=== PATIENT | female | born 1960 | race Caucasian/White ===

== ENCOUNTER → 2016-07-22 | Outpatient (CLI) | payer OTHER ==
[~2016-07-22] MED LIST: ALBU0.63 IH; CALC600T12 PO; CETI10TA20 PO; DOCU100C37 PO; FLUT1DIS28 IH; HYDR-3812 PO; IBUP-1773 PO; LORA-407 PO; POLY17PO23 PO; RT-ALBUINH IH; TIOT18CA2 IH; VORT5TAB PO
--- NOTE | 2016-07-22 13:05 | Diagnostic Imaging Report ---
EXAMINATION: Bilateral diagnostic mammogram with a Computer Aided Detection (CAD) system. INDICATION: Bilateral lesions seen in the breasts on ultrasound are favored to be fibroadenomas. COMPARISON: 05/29/2015. FINDINGS: The breasts are composed of heterogeneously dense parenchyma which may decrease mammographic sensitivity. Benign-appearing desiccations are seen. Allowing for technique and positional differences, no suspicious change is seen. IMPRESSION: No significant change. An ultrasound evaluation is pending. ACR BI-RADS Category 0: Incomplete. (Needs additional imaging evaluation). Result letter will be mailed to the patient. Note: At least 10% of breast cancer is not imaged by mammography. Dictated by: Dictated on workstation # [id number]
--- NOTE | 2016-07-22 13:10 | Diagnostic Imaging Report ---
EXAMINATION: Bilateral breast ultrasound. INDICATION: Followup bilateral masses. FINDINGS: In the right breast at the 10:30 o'clock position in the periareolar region, there is a 1.7 x 0.9 x 1.1 cm hypoechoic nodule. In the left breast at the 2:30 o'clock position 4 cm from the nipple, there is a 0.6 x 0.4 x 0.5 cm nodule and, at the 10 o'clock zone 1 cm from the nipple, there is a 0.5 cm hypoechoic nodule. These are all essentially stable from 05/30/2015 and remain with circumscribed and lobulated margins, compatible with a benign etiology, likely fibroadenomas. IMPRESSION: Stable bilateral masses for more than 2 years, suggestive of fibroadenomas. Annual screening mammograms are recommended. ACR BI-RADS Category 2: Benign findings. Dictated by: Dictated on workstation # [id number]
== END ==
LOC: RAD 08:25
PROVIDERS: ATTEND Nurse Practitioner Family
DX: N60.01 Solitary cyst of right breast (principal)
CPT/HCPCS: 76642; 77066

== ENCOUNTER → 2018-02-24 | Outpatient (CLI) | payer OTHER ==
[~2018-02-24] MED LIST changes: +ACHD5005 PO; -HYDR-3812 PO; -POLY17PO23 PO; +POLY17PO31 PO
--- NOTE | 2018-02-24 21:38 | Diagnostic Imaging Report ---
INDICATION: Abnormal CT study of the chest from an outside institution demonstrating dense nodule just lateral to the nipple in the right breast. Study is performed for further evaluation. Correlation is made with prior mammogram from 07/22/2016, 05/29/2015 and 05/30/2014. Bilateral 2-D and 3-D diagnostic mammography was performed with a Computer Aided Detection (CAD) system. FINDINGS: Both breasts remain heterogeneously dense, limiting the sensitivity of mammography. Circumscribed mass in the retroareolar slightly outer right breast is stable and most consistent with a benign etiology. This has been present and stable for several years. No new mass is seen. There are benign calcifications in both breasts. No malignant appearing microcalcifications are seen. Axillae are unremarkable. IMPRESSION: Benign-appearing nodule retroareolar right breast, stable. No mammographic features suspicious for malignancy are seen. Patient may return to routine annual screening mammography. ACR BI-RADS Category 2: Benign findings. Result letter will be mailed to the patient. Note: At least 10% of breast cancer is not imaged by mammography. Dictated by: Dictated on workstation # [id number]
== END ==
LOC: RAD 12:04
PROVIDERS: ATTEND Nurse Practitioner Family
DX: N60.01 Solitary cyst of right breast (principal); N63.10 Unspecified lump in the right breast, unspecified quadrant
CPT/HCPCS: 77066

== ENCOUNTER → 2018-03-14 | Emergency (ER) | payer OTHER ==
[~2018-03-14] VITALS: Ht 165.1 cm; Wt 63.5 kg
[~2018-03-14] MED LIST changes: +RT-ALBUTEROL SULF 2.5 MG/3 ML PRE-MIX VIAL INH ONE; +RT-ALBUTEROL SULF 2.5 MG/3 ML PRE-MIX VIAL ONE; +RT-ALBUTEROL/IPRATROPIUM 3 ML (DUONEB) VIAL INH ONE; +RT-ALBUTEROL/IPRATROPIUM 3 ML (DUONEB) VIAL ONE
--- OUTSIDE RECORDS SUMMARY | 2018-03-14 15:13 | XMS REPORT ---
Author Author [facility] Address [address] [place] [address] Care Team Providers Care Utility Tender Carding Name Role Phone YOLA ELLIS Unavailable PROBLEMS Type Condition ICD9-CM Code OMX69-SC Code Onset Dates Condition Status SNOMED Code Problem COPD exacerbation J44.1 Active 338865470 Problem Epigastric abdominal pain R10.13 Active 36008270 Problem Gynecologic exam normal Z01.419 Active 055505672 Problem Cyst of right breast N60.01 Active 067428956 Problem Screening breast examination Z12.39 Active 276038130 Problem Chronic obstructive pulmonary disease, unspecified COPD type J44.9 Active 06490033 Problem Contusion of left knee, initial encounter S80.02XA Active 47512541849500259 Problem Rib pain on right side R07.81 Active 167983959 Problem Anxiety F41.9 Active 51219689 Problem Hyperlipidemia LDL goal <130 E78.5 Active 60889822 Problem Dysthymia F34.1 Active 33655531 Problem Gastric reflux K21.9 Active 810076169 ALLERGIES No Information ENCOUNTERS Encounter Location Date Diagnosis [facility] [address] [id number] [id number] Nov, [facility] [address] [id number] [place] [address] Nov, [facility] [address] [id number], [place] [address] Nov, Rib pain on right side R07.81 and Contusion of left knee, initial encounter S80.02XA [facility] [address] [id number], [place] [address] June, [facility] [address] [id number][place] [address] June, Chronic obstructive pulmonary disease, unspecified COPD type J44.9 and Dysthymia F34.[address] [facility] [address] [id number], [place] 198900056 May, Pleurisy R09.1 and Gastric reflux K21.[address] [facility] [address] [id number], [place] [id number] Apr, [facility] [address] [id number], [place] [id number] Apr, Anxiety F41.9 and COPD exacerbation J44.[address] [facility] [address] [id number], [place] [address] Apr, [facility] [address] [id number][place] [address] Mar, Chronic obstructive pulmonary disease, unspecified COPD type J44.9 ; Anxiety F41.9 and Gastric reflux K21.9 [facility] [address]00565[address] [address] Dec, [facility] [address] [id number], [place] [id number] Oct, COPD exacerbation J44.1 [facility] [address]00565100[place] [address] Aug, [facility] [address] [id number], [place] [address] Aug, [facility] [address] [id number], [place] [id number] Aug, COPD exacerbation J44.1 and Anxiety F41.9 [facility] [address] [id number], [place] [id number] Jul, [facility] [address] [address] Jul, [facility] [address] [id number], [place] [address] Jul, [facility] [address] [id number], [place] [address] June, Gynecologic exam normal Z01.419 ; Cyst of right breast N60.01 ; Hyperlipidemia LDL goal <130 E78.5 and Epigastric abdominal pain R10.13 [facility] [address] [id number], [place] [address] Apr, [facility] [address] [id number], [place] [address] Mar, COPD exacerbation J44.1 and Influenza J11.1 [facility] [address] [id number], [place] [id number] Feb, [facility] [address] [id number], [place] [address] Feb, Chronic obstructive pulmonary disease, unspecified COPD type J44.9 [facility] [address] [id number], [place] [address]12[address]276 Oct, Chronic obstructive pulmonary disease, unspecified COPD type J44.9 [facility] [address] [id number], [place] [address] Sep, Bronchitis J40 [facility] [address] [id number], [place] [id number] Sep, [facility] [address] [id number], [place] [id number] May, Screening breast examination Z12.39 and Cyst of right breast N60.01 [facility] [address] [id number], [place] [address] May, [facility] [address] [id number], [place] [address] May, H/O abnormal mammogram Z87.898 [facility] [address] [facility] [id number] [place] [address] May, [facility] [address] [id number], [place] [id number] Apr, [facility] [address] [id number] [address]- [address] Apr, Generalized anxiety disorder F41.1 [facility] [address]65[address], [place] [address] Mar, [facility] [address]00565100[place], [place] [address] Feb, [facility] [id number] [place] [address] Feb, Hyperlipidemia E78.[address] [id number], [place] [address] Feb, Thyroid lesion E07.89 [facility] [address] [id number], [place] [id number] Feb, Thyroid lesion E07.[address]00565[address] [address] Feb, [facility] [address] [id number], [place] [address]120 Feb, COPD exacerbation J44.1 and Shortness of breath R06.02 [facility] [address]00565[address] [id number] Jan, [facility] [address] [id number], [place] [address]378973 Jan, [facility] [address] [id number], [place] [address] Dec, [facility] [address] [id number], [place] [id number] Dec, [place] [address]00565100[place], [place] [address] Nov, Generalized anxiety disorder F41.1 and Depression F32.9 [facility] [address] [place] [id number], [place] [address] Oct, Panic disorder with agoraphobia and moderate panic attacks 300.[address] [facility] [address] [id number] [place] [id number] Sep, [facility] [address] [facility] [id number] [place] [address] Sep, Panic disorder with agoraphobia and moderate panic attacks 300.[address] [facility] [address] [id number] [place] [id number] Sep, [facility] [address] [id number] [place] [address] Sep, COPD (chronic obstructive pulmonary disease) 496 and Anxiety 300.[address] [facility] [address] [id number] [place] [address] June, [facility] [address] [id number], [place] [address] June, [facility] [address] [id number], [place] [address] June, [facility] [address] [id number] [place] [address]115[address] June, [facility] [address] [id number], [place] [id number] June, [facility] [address] [id number], [place] 201862810 June, COPD (chronic obstructive pulmonary disease) 496 ; Weight gain 783.1 ; Tobacco abuse 305.1 and Tobacco abuse counseling V65.[address] [facility] [address] [id number] [place] [address] June, [facility] [address] [id number] [place] 401[address]164 May, [facility] [address] [id number] [place] [id number] May, [facility] [address] [facility] [id number], [place] 24876829[place] [address] May, [facility] [address] [id number], [place] [address] May, [facility] [place] [facility] [address] [id number], [place] [address]- [address] Apr, [facility] [place] [facility] [address] [facility] [id number], [place] [address] Apr, [facility] [address] [facility] [id number], [place] [id number] Feb, [facility] [address] [id number], [place] [address]- [address] Feb, [facility] [address] [facility] [id number] [place] [id number] Feb, [facility] [place] [facility] [address] [facility] [id number], [place] [address]- [address] Feb, [facility] [id number], [place] [address] Feb, [facility] [place] [facility] [address] [facility] [id number], [place] [address]- [address] Feb, [facility] [place] [facility] [address]00565100[place], [place] [address]- [address] Feb, [facility] [place] [facility] [address] [facility] [id number], [place] [address]- [address] Feb, [facility] [id number], [place] [address] Jan, [facility] [place] [facility] [address] [id number], [place] [address]- [address] Jan, [facility] [address] [facility] [id number], [place] [address]019[address] Jan, [facility] [place] [facility] [address] [facility] [id number], [place] [address]- [address] Jan, [facility] [place] [facility] [address] [facility] [id number], [place] [address]- [address] Jan, [facility] [place] [facility] [address] [id number] [place] [address]- [address] 30 Jan, 2014 [facility] [place] [facility] [address] [id number] [place] [address]- [address] Jan, [facility] [place] [facility] [address] [id number] [place] [address]- [address] Jan, [facility] [place] [facility] [address] [id number] [place] [address]- 9994 Jan, [facility] [place] [facility] [address] [id number] [place] [address]68 Jan, [facility] [place] [facility] [address] [id number] [place] [address]- [address] Jan, [facility] [place] [facility] [address] [id number] [place] [address]- 4037 Jan, [facility] [place] [facility] [address] [id number] [place] [address]- [address]263 Dec, [facility] [place] [facility] [address] [id number] [place] [address]- 1506 Dec, [facility] [place] [facility] [address] [id number] [place] [address]- [address]607 Dec, [facility] [place] [facility] [address] [id number] [place] [address]- [address]100 Dec, [facility] [place] [facility] [address] [id number] [place] [address]- 7127 Dec, [facility] [place] [facility] [address] [id number] [place] [address]- 4447 Dec, [facility] [place] [facility] [address] [id number] [place] [address]- 6738 Dec, [facility] [place] [facility] [address] [id number] [place] [address]- 0757 Dec, [facility] [place] [facility] [address] [id number] [place] [address] Dec, [facility] [place] [facility] [address] [id number] [place] [address]- 3319 Dec, [facility] [place] [facility] [address] [id number] [place] [address]- 5773 Dec, [facility] [place] [facility] [address] [id number] [place] [address] Dec, [facility] [place] [facility] [address] [id number] [place] [address]- 6277 Nov, [facility] [place] [facility] [address] [id number] [place] [address]- 1116 Nov, [facility] [place] [facility] [address] [id number] [place] [address]- [address] Nov, [facility] [place] [facility] [address] [id number] [place] [address]- 3666 Nov, [facility] [place] [facility] [address] [id number] [place] [address]- 6399 Nov, [facility] [place] [facility] [address] [id number] [place] [address]- 1530 Nov, [facility] [place] [facility] [address] [id number] [place] [address]- 2428 Oct, [facility] [place] [facility] [address] [id number] [place] [address]- 9587 Oct, [facility] [place] [facility] [address] [id number] [place] [address]- 4031 Oct, [facility] [place] [facility] [address] [id number] [place] [address]- 6342 Oct, [facility] [place] [facility] [address] [id number] [place] [address]- 2718 Sep, [facility] [place] [facility] [address] [id number] [place] [address]- 3508 Sep, [facility] [place] [facility] [address] [id number], [place] [address]- 1416 June, [facility] [place] [facility] [address] [id number], [place] [address]- [address] 30 May, 2012 [facility] [place] [facility] [address] [facility] [id number], [place] [address]- [address] May, [facility] [place] [facility] [address] [id number], [place] [address]- 4769 May, [facility] [place] [facility] [address] [facility] [id number], [place] [address]- 6368 May, [facility] [address] [facility] [id number], [place] [id number] May, [facility] [place] [facility] [address] [facility] [id number], [place] [address]- [address]23 May, [facility] [address]65[address], [place] [id number] Nov, [facility] [place] [facility] [address] [facility] [id number], [place] 97[place]- 7485 Nov, [facility] [place] [facility] [address] [facility] [id number][place]- 6076 Nov, [facility] [place] [facility] [address] [facility] [id number], [place]23[place]- 4917 Nov, [facility] [place] [facility] [address] [facility] [id number], [place] [address]- 4707 17 Nov, [address] [facility] [address] [facility] [id number], [place] [id number] 15 Nov, 2011 [facility] [place] [facility] [address] [id number], [place]46- [address] 15 Nov, 2011 [facility] [place] [facility] [address] [facility] [id number], [place] [address]- 4739 Nov, [facility] [place] [facility] [address] [facility] [id number], [place] [address]- 6695 10 Nov, 2011 [facility] [place] [facility] [address] [facility] [id number], [place] [address]- [address]356 Oct, [facility] [address] [facility] [id number] [place] [address]- 4696 Oct, [facility] [address] [facility] [id number] [place] [address] Sep, [facility] [address] [facility] [id number] [place] [address]- [address]646 Sep, [facility] [address] [facility] [id number] [place] [address]- 5656 Sep, IMMUNIZATIONS No Known Immunizations SOCIAL HISTORY Never Assessed REASON FOR VISIT PLAN OF CARE VITAL SIGNS MEDICATIONS Unknown Medications RESULTS No Results PROCEDURES No Known procedures INSTRUCTIONS MEDICATIONS ADMINISTERED No Known Medications MEDICAL (GENERAL) HISTORY Type Description Date Medical History Anxiety state, unspecified Medical History Unspecified sleep disturbance Medical History Personal history of tobacco use, presenting hazards to health Medical History Cystocele Medical History COPD Medical History bladder proplapse Medical History PPV 23 Medical History allergic rhinitis Medical History 02-20-15 overnight pulse ox, desat below 88% for 3 minutes Medical History 03-20-15 PFT mild obstructive defect Medical History [facility] DX Pleurisy, Costochondritis Medical History hyperplastic colon polyp Surgical History breast biopsy 1986 Surgical History partial hysterectomy-fibroids 1995 Surgical History arthroscopic knee surgery 1987 Surgical History laparoscopy 1983 Surgical History cholecystectomy Surgical History bladder prolapse repair 01/2015 Surgical History colonoscopy-poor prep, recommended repeat 02/2018 Hospitalization History resp issues 03/25 Hospitalization History resp issues 12/23 Hospitalization History panic attacks/ resp problems 07/23 Hospitalization History bladder prolapse 02/05/15 Hospitalization History [facility] DX plueralsy Treated and released 2017
--- OUTSIDE RECORDS SUMMARY | 2018-03-14 15:13 | XMS REPORT ---
Author Author YOLA ELLIS [facility] Address [address] [place] [address] Care Team Providers Care Classroom Technology Technician Name Role Phone YOLA ELLIS Unavailable PROBLEMS Type Condition ICD9-CM Code [id number] Code Onset Dates Condition Status SNOMED Code Problem COPD exacerbation J44.1 Active 958981814 Problem Epigastric abdominal pain R10.13 Active 27537517 Problem Gynecologic exam normal Z01.419 Active 594388249 Problem Cyst of right breast N60.01 Active 014239416 Problem Screening breast examination Z12.39 Active 251393231 Problem Chronic obstructive pulmonary disease, unspecified COPD type J44.9 Active 85607446 Problem Contusion of left knee, initial encounter S80.02XA Active 44424208329791059 Problem Rib pain on right side R07.81 Active 100753266 Problem Anxiety F41.9 Active 43799046 Problem Hyperlipidemia LDL goal <130 E78.5 Active 21144746 Problem Dysthymia F34.1 Active 31334423 Problem Gastric reflux K21.9 Active 593738102 ALLERGIES No Known Allergies ENCOUNTERS Encounter Location Date Diagnosis [facility] [address] [id number] [place] [id number] Nov, Rib pain on right side R07.81 and Contusion of left knee, initial encounter S80.02XA [facility] [address] [id number] [place] [address] June, [facility] [place] [address] [facility] [address] [id number][place] [address] June, Chronic obstructive pulmonary disease, unspecified COPD type J44.9 and Dysthymia F34.1 [facility] [address] [address] [facility] [address] [id number] [place] [address] May, Pleurisy R09.1 and Gastric reflux K21.[address] [facility] [address] [id number] [place] [address] Apr, [facility] [address] [id number] [id number] Apr, Anxiety F41.9 and COPD exacerbation J44.[address] [facility] [address] [id number][place] [address] Apr, [facility] [address] [id number][place] [id number] Mar, Chronic obstructive pulmonary disease, unspecified COPD type J44.9 ; Anxiety F41.9 and Gastric reflux K21.9 [facility] [address] [id number] [address] Dec, [facility] [address] [id number][place] [address] Oct, COPD exacerbation J44.1 [facility] [address] [id number] [address] Aug, [facility] [address] [id number][place] [id number] Aug, [facility] [address] [id number][place] [id number] Aug, COPD exacerbation J44.1 and Anxiety F41.9 [facility] [address] [id number][place] [id number] Jul, [facility] [address] [facility] [id number] [address] Jul, [facility] [address] [id number][place] [address] Jul, [facility] [address] [id number], [place] [address] June, Gynecologic exam normal Z01.419 ; Cyst of right breast N60.01 ; Hyperlipidemia LDL goal <130 E78.5 and Epigastric abdominal pain R10.[address] [facility] [address] [id number][place] [id number] Apr, [facility] [address] [id number][place] [id number] Mar, COPD exacerbation J44.1 and Influenza J11.1 [facility] [address] [id number], [place] [id number] Feb, [facility] A [address] [id number][place] [address] Feb, Chronic obstructive pulmonary disease, unspecified COPD type J44.9 [facility] [address] [id number], [place] [id number] Oct, Chronic obstructive pulmonary disease, unspecified COPD type J44.9 [facility] [address] [id number][place] [id number] Sep, Bronchitis J40 [facility] [address] [id number], [place] [address] Sep, [facility] [address] [id number][place] [id number] May, Screening breast examination Z12.39 and Cyst of right breast N60.01 [facility] [address] [id number], [place] [id number] May, [facility] [address] [id number], [place] [address] May, H/O abnormal mammogram Z87.898 [facility] [address] [id number] [address] May, [facility] [address] [id number], [place] [id number] Apr, [facility] [address]00565100[place] [address] Apr, Generalized anxiety disorder F41.1 [facility] [id number] [place] [address] Mar, [facility] [address]00565100[place] [address] Feb, [facility] [address]00565100[place] [address] Feb, Hyperlipidemia E78.5 [facility] [address] [id number], [place] [address] Feb, Thyroid lesion E07.89 [facility] [address] [id number], [place] [address] Feb, Thyroid lesion E07.89 [facility] [address]00565100[place] [address] Feb, [facility] [address] [id number], [place] [id number] Feb, COPD exacerbation J44.1 and Shortness of breath R06.02 [facility] [address]00565100[place] [id number] Jan, [facility] [address] [id number], [place] [id number] Jan, [facility] [address]00565100[place] [address] Dec, [facility] [address] [id number], [place] [id number] Dec, [facility] [address] [id number] [address] Nov, Generalized anxiety disorder F41.1 and Depression F32.9 [facility] [address]00565100[place] [address] Oct, Panic disorder with agoraphobia and moderate panic attacks 300.21 [facility] [address] [id number], [place] [id number] Sep, [facility] [address]00565100[place] [address] Sep, Panic disorder with agoraphobia and moderate panic attacks 300.[address] [facility] [address] [id number] [place] [id number] Sep, [facility] [address] [id number], [place] [address] Sep, COPD (chronic obstructive pulmonary disease) 496 and Anxiety 300.[address] [facility] [address] [id number], [place] [id number] June, [facility] [address] [id number], [place] 006[address] June, [facility] [address] [id number], [place] [address] June, [facility] [address] [id number], [place] [address] June, [facility] [address] [id number], [place] [address] June, [facility] [address] [id number], [place] [address] June, COPD (chronic obstructive pulmonary disease) 496 ; Weight gain 783.1 ; Tobacco abuse 305.1 and Tobacco abuse counseling V65.[address] [facility] [address] [id number], [place] [address]76[address] June, [facility] [address] [id number], [place] [id number] May, [facility] [address] [id number], [place] [id number] May, [facility] [address] [id number] [address] May, [facility] [address] [facility] [id number] [address] May, [facility] [address] [facility] [id number] [address] Apr, [facility] [place] [facility] [address] [id number] [place] [address] Apr, [facility] [address] [id number] [place] [id number] Feb, [facility] [place] [facility] [address] [id number] [place] [address] Feb, [facility] [address] [facility] [id number] [place] [id number] Feb, [facility] [place] [facility] [address] [id number] [place] [address]- [address] Feb, [facility] [address] [facility] [id number] [place] [id number] Feb, [facility] [place] [facility] [address] [id number] [place] [address]- [address] Feb, [facility] [place] [facility] [address] [facility] [id number] [place] [address]- [address] Feb, [facility] [place] [facility] [address] [id number] [place] [address]- [address]372 Feb, [facility] [address] [facility] [id number] [place] [id number] Jan, [facility] [place] [facility] [address] [id number] [place] [address]- [address]656 Jan, [facility] [address] [facility] [id number] [place] [id number] Jan, [facility] [place] [facility] [address] [id number] [place] [address]- [address] Jan, [facility] [place] [facility] [address] [id number] [place] [address]- 1416 Jan, [facility] [place] [facility] [address] [id number] [place] [address]- 2696 Jan, [facility] [place] [facility] [address] [id number] [place] [address]- [address] 16 Jan, 2014 [facility] [place] [facility] [address] [id number] [place] [address]- 2916 16 Jan, 2014 [facility] [place] [facility] [address] [id number] [place] [address]- 2973 Jan, [facility] [place] [facility] [address] [id number] [place] [address]- 9235 Jan, [facility] [place] [facility] [address] [id number] [place] [address]- [address] Jan, [facility] [place] [facility] [address] [id number] [place] [address]- 8374 Jan, [facility] [place] [facility] [address] [id number] [place] [address]- 9812 Dec, [facility] [place] [facility] [address] [id number] [place] [address]- 3016 Dec, [facility] [place] [facility] [address] [id number] [place] [address]- 4358 Dec, [facility] [place] [facility] [address] [id number] [place] [address]- 6831 Dec, [facility] [place] [facility] [address] [id number] [place] [address]- 8933 Dec, [facility] [place] [facility] [address] [id number] [place] [address]- 4897 Dec, [facility] [place] [facility] [address] [id number] [place] [address]- 3390 Dec, [facility] [place] [facility] [address] [id number] [place] [address]- 8971 Dec, [facility] [place] [facility] [address] [id number] [place]- [address] Dec, [facility] [place] [facility] [address] [id number] [place] [address] Dec, [facility] [place] [facility] [address] [id number] [place] [address]- 2507 Dec, [facility] [place] [facility] [address] [id number] [place] [address]- 1779 Dec, [facility] [place] [facility] [address] [id number] [place] [address]- 1477 Nov, [facility] [place] [facility] [address] [id number] [place] [address]- 59[address] Nov, [facility] [place] [facility] [address] [id number] [place] [address]- 3608 Nov, [facility] [place] [facility] [address] [id number] [place] [address]- 4725 Nov, [facility] [place] [facility] [address] [id number] [place] [address]- 0872 Nov, [facility] [place] [facility] [address] [id number] [place] [address]- 2350 Nov, [facility] [place] [facility] [address] [id number] [place] [address]- 1015 Oct, [facility] [place] [facility] [address] [id number] [place] [address]- 8082 Oct, [facility] [place] [facility] [address] [id number] [place] [address]- 4049 Oct, [facility] [place] [facility] [address] [id number] [place] [address]- 4069 Oct, [facility] [place] [facility] [address] [id number] [address]- [address] Sep, [facility] [place] [facility] [address] [id number] [place] [address]- 1999 Sep, [facility] [place] [facility] [address] [id number] [place] [address]- 3475 June, [facility] [place] [facility] [address] [id number] [place] [address]- 1254 May, [facility] [place] [facility] [address] [facility] [id number] [address]- [address] May, [facility] [place] [facility] [address] [id number] [address]- 64[address] May, [facility] [place] [facility] [address] [facility] [id number] [address]- [address] 18 May, 2012 [facility] [address] [facility] [id number] [place] [id number] 16 May, 2012 [facility] [place] [facility] [address] [facility] [id number] [address] May, [facility] [address] [facility] [id number] [place] [id number] Nov, [facility] [place] [facility] [address] [facility] [id number] [place] [address]- 1925 Nov, [facility] [place] [facility] [address] [id number] [address]- [address] Nov, [facility] [place] [facility] [address] [facility] [id number] [address]- 5[address] Nov, [facility] [place] [facility] [address] [facility] [id number] [address]- [address] 17 Nov, 2011 [facility] [address]65100[place] [address] 15 Nov, 2011 [facility] [place] [facility] [address]65100[place] [address]- [address] 15 Nov, 2011 [facility] [place] [facility] [address] [facility] [id number] [address]- [address] 10 Nov, 2011 [facility] [place] [facility] [address] [facility] [id number] [address]- 1528 10 Nov, 2011 [facility] [place] [facility] [address] [facility] [id number] [address]- 2786 26 Oct, 2011 [facility] [place] [facility] [address] [facility] [id number] [address]- 7[address] 25 Oct, 2011 [facility] [address] [id number] [place] [id number] Sep, [facility] [address] [facility] [id number] [place] [address] 2546 Sep, [facility] [address] [facility] [id number] [address]- 2546 Sep, IMMUNIZATIONS Vaccine Route Administration Date Status TORADOL (IM) 60 MG/2ML (UP TO 15 MG) IM Intramuscular Dec 01, 2017 Administered SOCIAL HISTORY Never Assessed REASON FOR VISIT trouble breathing. Also fell and hurt left leg Wednesday. [employer]ferrisma PLAN OF CARE Activity Details Follow Up 3 Months Reason:COPD Pending Test Xray : Knee, Left 3 views (IN HOUSE) VITAL SIGNS Height 65 in 2017-12-01 Weight 148.4 lbs 2017-12-01 Temperature 97.6 degrees Fahrenheit 2017-12-01 Heart Rate 80 bpm 2017-12-01 Respiratory Rate 20 2017-12-01 Oximetry 98 % 2017-12-01 BMI 24.69 kg/m2 2017-12-01 Blood pressure systolic 140 mmHg 2017-12-01 Blood pressure diastolic 88 mmHg 2017-12-01 MEDICATIONS Medication Instructions Dosage Frequency Start Date End Date Duration Status ProAir HFA 108 (90 Base) MCG/ACT Inhalation every 4 hrs 2 puffs as needed 4h Active Fish Oil 1000 MG Orally Once a day 1 capsule 24h Active Calcium Citrate 250 mg calcium 1 tablet by Oral route 1 time per day Oct, Active Advair Diskus 250-50 MCG/DOSE Inhalation Twice a day 1 puffs by Inhalation route 2 times per day Rinse mouth with water and spit after use 12h Jan, Active Cetirizine HCl 10 mg Orally Once a day 1 tablet 24h 2 Mar, 2018 90 days Active Naproxen 250 mg 1 tablet by Oral route 2 times per day PRN pain Oct Active Omeprazole 40 mg Orally Once a day 1 capsule 24h May, 45 days Active Trintellix 5 mg Orally Once a day 1 tablet 24h Mar, Active Spiriva Respimat 2.5 MCG/ACT Inhalation Once a day 2 puffs 24h Aug, Active MethylPREDNISolone 4 MG Orally as directed as directed Nov, Nov, 5 days Active Albuterol Sulfate (2.5 MG/3ML) 0.083% 1 Each by Inhalation route every 4 hours for cough and wheeze for 7 days for wheezing or cough Active Montelukast Sodium 10 mg Orally Once a day 1 tablet in the evening 24h Active Lidoderm 5 % Externally Once a day 1 patch to skin remove after 12 hours 24h Nov, Active RESULTS Name Result Date Reference Range Xray : Chest 2 View (IN HOUSE) 2017-12-01 PROCEDURES Procedure Date Ordered Result Body Site X-RAY EXAM CHEST 2 VIEWS Dec 01, 2017 X-RAY EXAM OF KNEE, 3 Dec 01, 2017 TORADOL (IM) 60 MG/2ML (UP TO 15 MG) Dec 01, 2017 THER/PROPH/DIAG INJ, SC/IM Dec 01, 2017 INSTRUCTIONS MEDICATIONS ADMINISTERED No Known Medications MEDICAL (GENERAL) HISTORY Type Description Date Medical History Anxiety state, unspecified Medical History Unspecified sleep disturbance Medical History Personal history of tobacco use, presenting hazards to health Medical History Cystocele Medical History COPD Medical History bladder proplapse Medical History PPV Medical History allergic rhinitis Medical History 02-20-15 [...]
--- OUTSIDE RECORDS SUMMARY | 2018-03-14 15:13 | XMS REPORT ---
Author Author [facility] Address [address] [place] [address] Care Team Providers Care Corporate Development Intern Name Role Phone YOLA ELLIS Unavailable PROBLEMS Type Condition ICD9-CM Code DLE14-DP Code Onset Dates Condition Status SNOMED Code Problem COPD exacerbation J44.1 Active 092589040 Problem Epigastric abdominal pain R10.13 Active 19481240 Problem Gynecologic exam normal Z01.419 Active 118831275 Problem Cyst of right breast N60.01 Active 840438825 Problem Screening breast examination Z12.39 Active 734551234 Problem Chronic obstructive pulmonary disease, unspecified COPD type J44.9 Active 23129533 Problem Contusion of left knee, initial encounter S80.02XA Active 33496541051793233 Problem Rib pain on right side R07.81 Active 142404066 Problem Anxiety F41.9 Active 24831902 Problem Hyperlipidemia LDL goal <130 E78.5 Active 65959992 Problem Dysthymia F34.1 Active 76555192 Problem Gastric reflux K21.9 Active 810533893 ALLERGIES No Information ENCOUNTERS Encounter Location Date Diagnosis [facility] [address] [id number] [place] [id number] Nov, [facility] [address] [id number] [id number] Nov, Rib pain on right side R07.81 and Contusion of left knee, initial encounter S80.02XA [facility] [address] [id number][place] [id number] June, [facility] [address] [id number][place] [address] June, Chronic obstructive pulmonary disease, unspecified COPD type J44.9 and Dysthymia F34.1 [facility] [address] [id number] [place] [id number] May, Pleurisy R09.1 and Gastric reflux K21.[address] [facility] [address] [id number] [place] [id number] Apr, [facility] [address] [id number][place] [id number] Apr, Anxiety F41.9 and COPD exacerbation J44.[address] [facility] [address] [id number][place] [id number] Apr, [facility] [address] [id number][place] [id number] Mar, Chronic obstructive pulmonary disease, unspecified COPD type J44.9 ; Anxiety F41.9 and Gastric reflux K21.9 [facility] [place] [address] [id number] [address] Dec, [facility] [address] [id number][place] [id number] Oct, COPD exacerbation J44.1 [facility] [place] [address] [id number], [place] [address] Aug, [facility] [address] [id number][place] [id number] Aug, [facility] [address] [id number][place] [id number] Aug, COPD exacerbation J44.1 and Anxiety F41.[address] [facility] [address] [id number][place] [id number] Jul, [facility] [address] [facility] [id number][place] [address] Jul, [facility] [address] [id number][place] [address] Jul, [facility] [address] [id number][place] [id number] June, Gynecologic exam normal Z01.419 ; Cyst of right breast N60.01 ; Hyperlipidemia LDL goal <130 E78.5 and Epigastric abdominal pain R10.13 [facility] [address] [id number][place] [address] Apr, [facility] [address] [id number], [place] [id number] Mar, COPD exacerbation J44.1 and Influenza J11.[address] [facility] [address] [id number][place] [id number] Feb, [facility] [address] [id number], [place] [id number] Feb, Chronic obstructive pulmonary disease, unspecified COPD type J44.9 [facility] [address] [id number][place] [id number] Oct, Chronic obstructive pulmonary disease, unspecified COPD type J44.9 [facility] [address] [id number], [place] [id number] Sep, Bronchitis J40 [facility] [address] [id number], [place] [id number] Sep, [facility] [address] [id number][place] [id number] May, Screening breast examination Z12.39 and Cyst of right breast N60.01 [facility] [address] [id number][place] [id number] May, [facility] [address] [id number], [place] [address] May, H/O abnormal mammogram Z87.898 [facility] [place] [address] [id number] [address] May, [facility] [address] [id number][place] [id number] Apr, [facility] [place] [address]00565100[place], [place] [address] Apr, Generalized anxiety disorder F41.1 [facility] [place] [address] [id number], [place] [address] Mar, [facility] [place] [address]00565100[place], [place] [address] Feb, [facility] [place] [address]65100[place], [place] [address] Feb, Hyperlipidemia E78.5 [facility] [address] [id number], [place] [id number] Feb, Thyroid lesion E07.[id number] [place] [id number] Feb, Thyroid lesion E07.89 [facility] [place] [address]65100[place], [place] [address] Feb, [facility] [address] [id number][place] [id number] Feb, COPD exacerbation J44.1 and Shortness of breath R06.02 [facility] [id number] [place] [id number] Jan, [facility] [address] [id number], [place] [id number] Jan, [facility] [place] [address] [id number], [place] [address] Dec, [facility] [address] [id number], [place] [address] Dec, [facility] [place] [address] [id number], [place] [address] Nov, Generalized anxiety disorder F41.1 and Depression F32.9 [facility] [place] [address]65100[place], [place] [address] Oct, Panic disorder with agoraphobia and moderate panic attacks 300.21 [facility] [address] [id number], [place] [address] Sep, [facility] [address] [facility] [id number], [place] [address] Sep, Panic disorder with agoraphobia and moderate panic attacks 300.[address] [facility] [address] [id number] [place] [address] Sep, [facility] [address] [id number], [place] [address] Sep, COPD (chronic obstructive pulmonary disease) 496 and Anxiety 300.[address] [facility] [address] [address] [id number], [place] [address]6727[address] June, [facility] [address] [id number], [place] [address]85[address] June, [facility] [address] [id number], [place] [address]82[address] June, [facility] [address] [id number], [place] [id number] June, [facility] [address] [id number], [place] [id number] June, [facility] [address] [id number], [place] [address]65484569 June, COPD (chronic obstructive pulmonary disease) 496 ; Weight gain 783.1 ; Tobacco abuse 305.1 and Tobacco abuse counseling V65.[address] [facility] [address] [id number], [place] [id number] June, [facility] [address] [id number], [place] 934622[address] May, [facility] [address] [id number], [place] [id number] May, [facility] [address] [facility] [id number], [place] [address] May, [facility] [place] [address] [facility] [id number], [place] [address] May, [facility] [place] [facility] [address] [id number] [place] [address] Apr, [facility] [place] [facility] [address] [id number] [place] [address] Apr, [facility] [address] [id number] [place] [id number] Feb, [facility] [place] [facility] [address] [id number] [place] [address] Feb, [facility] [address] [id number] [place] [id number] Feb, [facility] [place] [facility] [address] [id number] [place] [address] Feb, [facility] [address] [facility] [id number] [place] [id number] Feb, [facility] [place] [facility] [address] [facility] [id number], [place] [address] Feb, [facility] [place] [facility] [address] [id number], [place] [address] Feb, [facility] [place] [facility] [address] [id number], [place] [address] Feb, [facility] [address] [facility] [id number] [place] [address] Jan, [facility] [place] [facility] [address] [id number], [place] [address]- [address] Jan, [facility] [address] [facility] [id number] [place] [id number] Jan, [facility] [place] [facility] [address] [id number] [place] [address]- [address] Jan, [facility] [place] [facility] [address] [facility] [id number] [place] [address]- [address] Jan, [facility] [place] [facility] [address] [id number] [place] [address]- 6566 Jan, [facility] [place] [facility] [address] [id number] [place] [address]- [address] Jan, [facility] [place] [facility] [address] [id number] [place] [address]- 1761 Jan, [facility] [place] [facility] [address] [id number] [place] [address]- 6[address] Jan, [facility] [place] [facility] [address] [id number] [place] [address]- [address] Jan, [facility] [place] [facility] [address] [id number] [place] [address]- [address]73 Jan, [facility] [place] [facility] [address] [id number] [place] [address] Jan, [facility] [place] [facility] [address] [id number] [place] [address]- 9834 Dec, [facility] [place] [facility] [address] [id number] [place] [address]- 5091 Dec, [facility] [place] [facility] [address] [id number] [place] [address]- 5013 Dec, [facility] [place] [facility] [address] [id number] [place] [address]- [address]148 Dec, [facility] [place] [facility] [address] [id number] [place] [address]- [address]156 Dec, [facility] [place] [facility] [address] [id number] [place] [address]- 1121 Dec, [facility] [place] [facility] [address] [id number] [place] [address]- 9921 Dec, [facility] [place] [facility] [address] [id number] [place] [address] Dec, [facility] [place] [facility] [address] [id number] [place]- [address] Dec, [facility] [place] [facility] [address] [id number] [place] [address]- 3045 Dec, [facility] [place] [facility] [address] [id number] [place] [address]- 9509 Dec, [facility] [place] [facility] [address] [id number] [place] [address]- 5120 Dec, [facility] [place] [facility] [address] [id number] [place] [address]- 7887 Nov, [facility] [place] [facility] [address] [id number] [place] [address]- [address] Nov, [facility] [place] [facility] [address] [id number] [place] [address]- 8449 Nov, [facility] [place] [facility] [address] [id number] [place] [address]- [address]123 Nov, [facility] [place] [facility] [address] [id number] [place] [address]- 8542 Nov, [facility] [place] [facility] [address] [id number] [place] [address]- 7019 Nov, [facility] [place] [facility] [address] [id number] [place] [address]- 5842 Oct, [facility] [place] [facility] [address] [id number] [place] [address]- 4173 Oct, [facility] [place] [facility] [address] [id number] [place] [address]- 7425 Oct, [facility] [place] [facility] [address] [id number], [place] [address]- [address]45 Oct, [facility] [place] [facility] [address] [id number] [place] [address]- 7325 Sep, [facility] [place] [facility] [address] [id number] [place] [address]- 1852 Sep, [facility] [place] [facility] [address] [id number] [place]- [address] June, [facility] [place] [facility] [address] [id number], [place] [address]- [address] 30 May, 2012 [facility] [place] [facility] [address] [id number], [place] [address]- [address] May, [facility] [place] [facility] [address] [facility] [id number], [place] [address]- [address]27 May, [facility] [address] [facility] [id number], [place] [address]- [address] 18 May, [address] [facility] [address] [facility] [id number] [place] [address] 16 May, 2012 [facility] [place] [facility] [address] [facility] [id number], [place] [address]- [address] May, [facility] [address] [facility] [id number] [place] 536[address] Nov, [facility] [place] [facility] [address]65[address], [place] [address]- [address] Nov, [facility] [place] [facility] [address] [facility] [id number], [place] [address]- [address] Nov, [facility] [place] [facility] [address] [facility] [id number], [place] [address]- [address] 17 Nov, 2011 [facility] [place] [facility] [address] [facility] [id number], [place] [address]- [address] 17 Nov, 2011 [facility] [address]65[address] [id number] 15 Nov, 2011 [facility] [place] [facility] [address] [facility] [id number], [place] [address]- [address] 15 Nov, 2011 [facility] [place] [facility] [address] [facility] [id number], [place] [address]- 8519 10 Nov, 2011 [facility] [place] [facility] [address] [facility] [id number], [place] [address]- 5813 10 Nov, 2011 [facility] [place] [facility] [address] [facility] [id number][place]- 4944 26 Oct, 2011 [facility] [place] [facility] [address] [facility] [id number], [place] [address]- 4056 Oct, [facility] [address] [facility] [id number] [place] [address] Sep, [facility] [place] [address] [facility] [id number] [place] [address]- [address] Sep, [facility] [place] [address] [facility] [id number] [place] [address] 2546 Sep, IMMUNIZATIONS No Known Immunizations SOCIAL HISTORY Never Assessed REASON FOR VISIT triage PLAN OF CARE VITAL SIGNS MEDICATIONS Unknown [...]
--- OUTSIDE RECORDS SUMMARY | 2018-03-14 15:14 | XMS REPORT ---
Author Author SINANYOLA GERGORIO [facility] Address [address] [place] [address] Care Team Providers Care Shot Peen Operator Name Role Phone YOLA ELLIS Unavailable PROBLEMS Type Condition ICD9-CM Code TCT61-XC Code Onset Dates Condition Status SNOMED Code Problem Cyst of right breast N60.01 Active 260184119 Problem COPD exacerbation J44.1 Active 807096525 Problem Chronic obstructive pulmonary disease, unspecified COPD type J44.9 Active 25525427 Problem Screening breast examination Z12.39 Active 266433789 Problem Dysthymia F34.1 Active 22452391 Problem Gastric reflux K21.9 Active 276476805 Problem Gynecologic exam normal Z01.419 Active 914512755 Problem Hyperlipidemia LDL goal <130 E78.5 Active 23971842 Problem Anxiety F41.9 Active 40600697 Problem Epigastric abdominal pain R10.13 Active 18176859 ALLERGIES No Known Allergies ENCOUNTERS Encounter Location Date Diagnosis [employer] [address] [id number], [place] [id number] June, [facility] [address] [id number], [place] [id number] June, Chronic obstructive pulmonary disease, unspecified COPD type J44.9 and [facility]ysthymia F34.1 [facility] [address] [id number] [place] [id number] May, Pleurisy R09.1 and Gastric reflux K21.9 [facility] [address] [id number], [place] [id number] Apr, [facility] [address] [id number] [place] [id number] Apr, Anxiety F41.9 and COPD exacerbation J44.1 [facility] [address] [id number], [place] [id number] Apr, [facility] [address] [id number][place] [id number] Mar, Chronic obstructive pulmonary disease, unspecified COPD type J44.9 ; Anxiety F41.9 and Gastric reflux K21.9 [facility] [place] [address] [id number] [address] Dec, [facility] [address] [id number], [place] [id number] Oct, COPD exacerbation J44.1 [facility] [place] [address] [id number] [address] Aug, [facility] [address] [id number], [place] [id number] Aug, [facility] [address] [id number], [place] [id number] Aug, COPD exacerbation J44.1 and Anxiety F41.9 [facility] [address] [id number], [place] [id number] Jul, [facility] [place] [address] [id number], [place] [address] Jul, [facility] [address] [id number], [place] [id number] Jul, [facility] [address] [id number], [place] [address] June, Gynecologic exam normal Z01.419 ; Cyst of right breast N60.01 ; Hyperlipidemia LDL goal <130 E78.5 and Epigastric abdominal pain R10.[address] [facility] [address] [id number], [place] [id number] Apr, [facility] [address] [id number], [place] [id number] Mar, COPD exacerbation J44.1 and Influenza J11.[address] [facility] [address] [id number], [place] [id number] Feb, [facility] [address] [id number], [place] [id number] Feb, Chronic obstructive pulmonary disease, unspecified COPD type J44.9 [facility] [address] [id number], [place] [id number] Oct, Chronic obstructive pulmonary disease, unspecified COPD type J44.9 [facility] [address] [id number], [place] 606[address]90 Sep, Bronchitis J40 [facility] [address] [id number], [place] [id number] Sep, [facility] [address] [id number], [place] [id number] May, Screening breast examination Z12.39 and Cyst of right breast N60.01 [facility] [address] [id number], [place] [id number] May, [facility] [address] [id number], [place] [id number] May, H/O abnormal mammogram Z87.898 [facility] [address]00565100[place], [place] [address] May, [facility] [address] [id number], [place] [id number] Apr, [facility] [address]65[address], [place] [address] Apr, Generalized anxiety disorder F41.1 [facility] [address]00565100[place], [place] [address] Mar, [facility] [id number] [place] [address] Feb, [facility] [address]00565100[place], [place] [address] Feb, Hyperlipidemia E78.5 [facility] [address] [id number], [place] [id number] Feb, Thyroid lesion E07.89 [facility] [address] [id number], [place] [address] Feb, Thyroid lesion E07.89 [facility] [address] [id number], [place] [address] Feb, [facility] [address] [id number], [place] [id number] Feb, COPD exacerbation J44.1 and Shortness of breath R06.02 [facility] [address] [id number][place] [id number] Jan, [facility] [address] [id number], [place] [id number] Jan, [facility] [address]00565100[place], [place] [address] Dec, [facility] [address] [id number], [place] [address] Dec, [facility] [address]65[address], [place] [address] Nov, Generalized anxiety disorder F41.1 and Depression F32.9 [facility] [address]65[address], [place] [address] Oct, Panic disorder with agoraphobia and moderate panic attacks 300.21 [facility] [address] [id number], [place] [id number] Sep, [facility] [address] [facility] [id number], [place] [address] Sep, Panic disorder with agoraphobia and moderate panic attacks 300.21 [facility] [address] [id number], [place] [id number] Sep, [facility] [address] [id number], [place] [address] Sep, COPD (chronic obstructive pulmonary disease) 496 and Anxiety 300.[address] [facility] [address] [id number] [place] [id number] June, [facility] [address] [id number] [place] [id number] June, [facility] [address] [id number], [place] [address]784476[address] June, [facility] [address] [id number] [place] [address] June, [facility] [address] [id number], [place] [id number] June, [facility] [address] [id number], [place] [id number] June, COPD (chronic obstructive pulmonary disease) 496 ; Weight gain 783.1 ; Tobacco abuse 305.1 and Tobacco abuse counseling V65.[address] [facility] [address] [id number], [place] [id number] June, [facility] [address] [id number], [place] [address]689[address] May, [facility] [address] [id number], [place] [address]87[address] May, [facility] [place] [facility] [address] [facility] [id number], [place] [address] May, [facility] [place] [facility] [address] [facility] [id number], [place] [address] May, [facility] [place] [facility] [address] [facility] [id number] [address] Apr, [facility] [place] [facility] [address] [facility] [id number], [place] [address] Apr, [facility] [address] [facility] [id number][place] [id number] Feb, [facility] [place] [facility] [address] [facility] [id number], [place] [address] Feb, [facility] [address] [id number] [place] [address] Feb, [facility] [address] [id number] [place] [address] Feb, [facility] [address] [id number] [place] [address] Feb, [facility] [place] [facility] [address] [id number] [place] [address] Feb, [facility] [place] [facility] [address] [id number] [place] [address]- [address] Feb, [facility] [place] [facility] [address] [id number] [place] [address]- [address] Feb, [facility] [address] [id number] [place] [id number] Jan, [facility] [address] [id number] [place] [address] Jan, [facility] [address] [id number] [place] [id number] Jan, [facility] [place] [facility] [address] [id number] [place] [address]- [address] Jan, [facility] [place] [facility] [address] [facility] [id number] [place] [address]- [address] Jan, [facility] [place] [facility] [address] [id number] [place] [address]- [address] Jan, [facility] [place] [facility] [address] [id number], [place] [address] Jan, [facility] [place] [facility] [address] [id number] [place] [address]- [address] Jan, [facility] [place] [facility] [address] [facility] [id number] [place] [address]- [address] Jan, [facility] [place] [facility] [address] [id number], [place] [address]- [address] Jan, [facility] [place] [facility] [address] [id number] [place] [address]- 1488 Jan, [facility] [place] [facility] [address] [id number] [place] [address]- 7[address] Jan, [facility] [place] [facility] [address] [id number] [place] [address]- 2570 Dec, [facility] [place] [facility] [address] [id number] [place] [address]- 6824 Dec, [facility] [place] [facility] [address] [id number] [place] [address]- 7070 Dec, [facility] [place] [facility] [address] [id number] [place] [address]- 9796 Dec, [facility] [place] [facility] [address] [id number] [place] [address]- 2331 Dec, [facility] [place] [facility] [address] [id number] [place] [address]- 6667 Dec, [facility] [place] [facility] [address] [id number] [place] [address]- 7[address] Dec, [facility] [place] [facility] [address] [id number] [place] [address]- 3940 Dec, [facility] [place] [facility] [address] [id number] [place] [address]- 2050 Dec, [facility] [place] [facility] [address] [id number] [place] [address]- 0589 Dec, [facility] [place] [facility] [address] [id number] [place] [address]- 2824 Dec, [facility] [place] [facility] [address] [id number] [place] [address]- 0874 Dec, [facility] [place] [facility] [address] [id number] [place] [address]- 6818 Nov, [facility] [place] [facility] [address] [id number] [place] [address]- 3[address] Nov, [facility] [address] [id number] [place] [address]- [address]85 Nov, [facility] [address] [id number] [place] [address] Nov, [facility] [address] [id number] [place] [address]- 9[address] Nov, [facility] [address] [id number] [place] [address]- 3340 Nov, [facility] [address] [id number] [place] [address]- 9858 Oct, [facility] [address] [id number] [place] [address]- 37[address] Oct, [facility] [address] [id number] [place] [address]- 0470 Oct, [facility] [address] [id number] [place] [address]- 2940 Oct, [facility] [address] [id number] [place] [address]- 8857 Sep, [facility] [address] [id number] [place] [address]- 2310 Sep, [facility] [address] [id number] [place] [address]- [address] June, [facility] [place] [facility] [address] [id number] [place] [address]- 2931 30 May, 2012 [facility] [place] [facility] [address] [id number] [place] [address]- 8046 May, [facility] [place] [facility] [address] [facility] [id number] [place] [address]- 7569 May, [facility] [address] [facility] [id number] [place] [address]- [address] May, [facility] [address] [id number], [place] [address] May, [facility] [address], [place] [address] May, [facility] [address] [id number], [place] [id number] Nov, [facility] [address]65100[place], [place] [address] Nov, [facility] [address]65[address], [place] [address]- 47[address] Nov, [facility] [address]65[address], [place] [address]- [address] Nov, [facility] [address]65100[place], [place] [address] Nov, [facility] [id number], [place] [id number] Nov, [facility] [address]65[address], [place] [address]- [address] Nov, [facility] [address]65[address], [place] [address]- [address] Nov, [facility] [address]65100[place], [place] [address]- [address]6 Nov, [facility] [address]65[address], [place] [address]- [address] Oct, [facility] [address]65[address], [place] [address]- 2816 Oct, [facility] [address] [id number], [place] [address] Sep, [facility] [address]65100[place], [place] [address]- [address] Sep, [facility] [address] [id number], [place] [address]- [address] Sep, IMMUNIZATIONS No Known Immunizations SOCIAL HISTORY Never Assessed REASON FOR VISIT Depression BFERRISMA PLAN OF CARE Activity Details Follow Up 3 Months Reason:WW exam-EDW VITAL SIGNS Height 65 in 2017-06-15 Weight 145.3 lbs 2017-06-15 Temperature 97.0 degrees Fahrenheit 2017-06-15 Heart Rate 65 bpm 2017-06-15 Respiratory Rate 18 2017-06-15 Oximetry 98 % 2017-06-15 BMI 24.18 kg/m2 2017-06-15 Blood pressure systolic 119 mmHg 2017-06-15 Blood pressure diastolic 77 mmHg 2017-06-15 MEDICATIONS Medication Instructions Dosage Frequency Start Date End Date Duration Status Omeprazole 40 mg Orally Once a day 1 capsule 24h May, 45 days Active Advair Diskus 250-50 MCG/DOSE Inhalation Twice a day 1 puffs by Inhalation route 2 times per day Rinse mouth with water and spit after use 12h Jan, Active ProAir HFA 108 (90 Base) MCG/ACT Inhalation every 4 hrs 2 puffs as needed 4h Active Calcium Citrate 250 mg calcium 1 tablet by Oral route 1 time per day Oct, Active Trintellix 5 mg Orally Once a day 1 tablet 24h Mar, Active Cetirizine HCl 10 mg Orally Once a day 1 tablet 24h 2 Mar, 2018 90 days Active Fish Oil 1000 MG Orally Once a day 1 capsule 24h Active Albuterol Sulfate (2.5 MG/3ML) 0.083% 1 Each by Inhalation route every 4 hours for cough and wheeze for 7 days for wheezing or cough Active Montelukast Sodium 10 mg Orally Once a day 1 tablet in the evening 24h Active Spiriva Respimat 2.5 MCG/ACT Inhalation Once a day 2 puffs 24h Aug, Active Naproxen 250 mg 1 tablet by Oral route 2 times per day PRN pain Oct Active RESULTS No Results PROCEDURES No Known procedures [...] Medical History [facility] DX Pleurisy, Costochondritis Surgical History breast biopsy 1986 Surgical History partial hysterectomy-fibroids 1995 Surgical History arthroscopic knee surgery 1987 Surgical History laparoscopy 1983 Surgical History cholecystectomy Surgical History bladder prolapse repair 01/2015 Surgical History colonoscopy 02/2017 Hospitalization History resp issues 03/25 Hospitalization History resp issues 12/23 Hospitalization History panic attacks/ resp problems 07/23 Hospitalization History bladder prolapse 02/05/15 Hospitalization History [facility] DX plueralsy Treated and released 2017
--- OUTSIDE RECORDS SUMMARY | 2018-03-14 15:14 | XMS REPORT ---
Author Author RHYS ALMEIDA Organization [facility] Address [address] [place] [address] Care Team Providers Care Consumer Affairs Specialist Name Role Phone RHYS ALMEIDA Unavailable PROBLEMS Type Condition ICD9-CM Code JNH51-[place] Code Onset Dates Condition Status SNOMED Code Problem Cyst of right breast N60.01 Active 374129719 Problem COPD exacerbation J44.1 Active 130226163 Problem Chronic obstructive pulmonary disease, unspecified COPD type J44.9 Active 97569122 Problem Screening breast examination Z12.39 Active 801662316 Problem Dysthymia F34.1 Active 10519347 Problem Gastric reflux K21.9 Active 623267009 Problem Gynecologic exam normal Z01.419 Active 558796246 Problem Hyperlipidemia LDL goal <130 E78.5 Active 17462563 Problem Anxiety F41.9 Active 11636040 Problem Epigastric abdominal pain R10.13 Active 73707140 ALLERGIES No Known Allergies ENCOUNTERS Encounter Location Date Diagnosis [address] [id number] [place] [id number] June, [address] [id number] [place] [id number] June, Chronic obstructive pulmonary disease, unspecified COPD type J44.9 and [facility]hym[facility] F34.[address] [facility] [address] [id number] [place] [id number] May, Pleurisy R09.1 and Gastric reflux K21.9 [facility] [address] [id number] [place] [id number] Apr, [address] [id number] [place] [address] Apr, Anxiety F41.9 and COPD exacerbation J44.1 [facility] [address] [id number] [place] [address] Apr, [facility] [address] [id number] [place] [address] Mar, Chronic obstructive pulmonary disease, unspecified COPD type J44.9 ; Anxiety F41.9 and Gastric reflux K21.9 [facility] [address] [id number] [address] Dec, [facility] [address] [id number] [place] [id number] Oct, COPD exacerbation J44.1 [facility] [address], [place] [address] Aug, [facility] [address] [id number] [place] [id number] Aug, [facility] [address] [id number] [place] [address] Aug, COPD exacerbation J44.1 and Anxiety F41.9 [facility] [address] [id number] [place] [id number] Jul, [facility] [address] [id number], [place] [address] Jul, [facility] [address] [id number] [place] [address] Jul, [facility] [address] [id number] [place] [address] June, Gynecologic exam normal Z01.419 ; Cyst of right breast N60.01 ; Hyperlipidemia LDL goal <130 E78.5 and Epigastric abdominal pain R10.[address] [facility] [address] [id number] [place] [address] Apr, [facility] [address] [id number] [place] [id number] Mar, COPD exacerbation J44.1 and Influenza J11.[address] [facility] [address] [id number] [place] [address] Feb, [facility] [address] [id number] [place] [address] Feb, Chronic obstructive pulmonary disease, unspecified COPD type J44.9 [facility] [address] [id number] [place] [id number] Oct, Chronic obstructive pulmonary disease, unspecified COPD type J44.9 [facility] [address] [id number] [place] [address] Sep, Bronchitis J40 [facility] [address] [id number] [place] [address] Sep, [facility] [address] [id number] [place] [address] May, Screening breast examination Z12.39 and Cyst of right breast N60.01 [facility] [address] [id number] [place] [address] May, [facility] [address] [id number] [place] [address] May, H/O abnormal mammogram Z87.898 [facility] [address] [address] May, [facility] [address] [id number] [place] [id number] Apr, [facility] [address], [place] [address] Apr, Generalized anxiety disorder F41.1 [facility] [address] [place] [address] Mar, [facility] [id number] [place] [address] Feb, [facility] [address] [place] [address] 28 Fer, 2016 Hyperlipidemia E78.5 [facility] [address] [id number] [place] [address] Feb, Thyroid lesion E07.89 [facility] [address] [id number] [place] [address] Feb, Thyroid lesion E07.89 [facility] [address], [place] [address] Feb, [facility] [address] [id number] [place] [address] Feb, COPD exacerbation J44.1 and Shortness of breath R06.02 [facility] [address] [address] Jan, [facility] [address] [id number] [place] [id number] Jan, [facility] [address], [place] [address] Dec, [facility] [address] [id number] [place] [id number] Dec, [facility] [address], [place] [address] Nov, Generalized anxiety disorder F41.1 and Depression F32.9 [facility] [address], [place] [address] Oct, Panic disorder with agoraphobia and moderate panic attacks 300.21 [facility] [address] [id number] [place] [address] Sep, [facility] [address] [facility] [id number] [address] Sep, Panic disorder with agoraphobia and moderate panic attacks 300.21 [facility] [address] [id number] [place] [address] Sep, [facility] [address] [id number] [place] [address] Sep, COPD (chronic obstructive pulmonary disease) 496 and Anxiety 300.[address] [facility] [address] [id number] [place] [address] June, [facility] [address] [id number] [place] [address] June, [facility] [address] [id number] [place] [address] June, [facility] [address] [id number] [place] [address] June, [facility] [address] [id number] [place] [address] June, [facility] [address] [id number] [place] [address] June, COPD (chronic obstructive pulmonary disease) 496 ; Weight gain 783.1 ; Tobacco abuse 305.1 and Tobacco abuse counseling V65.[address] [facility] [address] [id number] [place] 507[address] June, [facility] [address] [id number] [place] [id number] May, [facility] [address] [id number] [place] [address] May, [facility] [place] [facility] [address] [facility] [id number], [place] [address] May, [facility] [place] [facility] [address] [id number], [place] [address] May, [facility] [place] [facility] [address] [facility] [id number], [place] [address] Apr, [facility] [place] [facility] [address] [facility] [id number], [place] [address] Apr, [facility] [address] [facility] [id number], [place] [address] Feb, [facility] [place] [facility] [address] [id number], [place] [address] Feb, [facility] [address] [id number] [place] [address] Feb, [facility] [address] [id number] [place] [address] Feb, [facility] [address] [id number] [place] [address] Feb, [facility] [place] [facility] [address] [id number] [place] [address] Feb, [facility] [place] [facility] [address] [id number] [place] [address] Feb, [facility] [place] [facility] [address] [id number] [place] [address] Feb, [facility] [address] [id number] [place] [id number] Jan, [facility] [place] [facility] [address] [id number] [place] [address] Jan, [facility] [address] [id number] [place] [id number] Jan, [facility] [place] [facility] [address] [id number] [place] [address]- [address] Jan, [facility] [place] [facility] [address] [facility] [id number] [place] [address]- [address] Jan, [facility] [place] [facility] [address] [id number] [place] [address]- [address] Jan, [facility] [place] [facility] [address] [id number] [place] [address]- [address] Jan, [facility] [place] [facility] [address] [id number] [place] [address]- 270[address] Jan, [facility] [place] [facility] [address] [id number] [place] [address]- [address] Jan, [facility] [place] [facility] [address] [id number] [place] [address]- [address] Jan, [facility] [place] [facility] [address] [id number] [place] [address]- 0040 Jan, [facility] [place] [facility] [address] [id number] [place] [address]- [address] Jan, [facility] [place] [facility] [address] [id number] [place] [address]- 8735 Dec, [facility] [place] [facility] [address] [id number] [place] [address]- [address]37 Dec, [facility] [place] [facility] [address] [id number] [place] [address]- 62[address] Dec, [facility] [place] [facility] [address] [id number] [place] [address]- 1485 Dec, [facility] [place] [facility] [address] [id number] [place] [address]- 0074 Dec, [facility] [place] [facility] [address] [id number] [place] [address]- 48[address] Dec, [facility] [place] [facility] [address] [id number] [place] [address]- 0449 Dec, [facility] [place] [facility] [address] [id number] [place] [address]- 378[address] Dec, [facility] [place] [facility] [address] [id number][place] [address]- [address] Dec, [facility] [place] [facility] [address] [id number][place] [address]- [address]99 Dec, [facility] [place] [facility] [address] [id number] [place] [address]- 0335 Dec, [facility] [place] [facility] [address] [id number] [place] [address]- 57[address] Dec, [facility] [place] [facility] [address] [id number] [place] [address]- 2466 Nov, [facility] [place] [facility] [address] [id number] [place] [address]- [address] 31 Nov, 2013 [facility] [address] [id number] [place] [address]- [address] Nov, [facility] [address] [id number] [place] [address]- 6168 Nov, [facility] [address] [id number] [place] [address]- 6909 Nov, [facility] [place] [facility] [address] [id number] [place] [address]- 1866 Nov, [facility] [address] [id number] [place] [address]- [address] Oct, [facility] [place] [facility] [address] [id number] [place] [address]- 1493 Oct, [facility] [address] [id number] [place] [address]- [address]360 Oct, [facility] [address] [id number] [place] [address]- 0973 Oct, [facility] [address] [id number] [place] [address]- 4[address] Sep, [facility] [address] [id number] [place] [address]- [address] Sep, [facility] [address] [id number] [place] [address]- 47[address] June, [facility] [address] [id number] [place] [address]- 1063 May, [facility] [place] [facility] [address] [id number] [place] [address]- 9437 May, [facility] [place] [facility] [address] [id number] [place] [address]- 6147 May, [facility] [address] [id number] [place] [address]- [address] May, [facility] [id number] [address] May, [facility] [address], [place] [address]- [address] May, [facility] [id number], [place] [id number] Nov, [facility] [address], [place] [address] Nov, [facility] [address], [place] [address]- [address] Nov, [facility] [address] [id number], [place] [address]- [address] Nov, [facility] [address], [place] [address]- [address] Nov, [facility] [id number], [place] [address] Nov, [facility] [address], [place] [address]- [address] Nov, [facility] [address] [id number], [place] [address]- [address] Nov, [facility] [address], [place] [address]- [address] Nov, [facility] [address], [place] [address]- [address] Oct, [facility] [address] [id number], [place] [address]- [address] Oct, [facility] [address] [id number] [id number] Sep, [facility] [address], [place] [address] Sep, [facility] [address] [id number], [place] [address]- [address] Sep, IMMUNIZATIONS Vaccine Route Administration Date Status TORADOL (IM) 60 MG/2ML (UP TO 15 MG) IM Intramuscular May 28, 2017 Administered DEXAMETHASONE 4MG/ML (PER 1 MG) IM Intramuscular May 28, 2017 Administered DEPO MEDROL 40 MG/ML IM Intramuscular May 28, 2017 Administered SOCIAL HISTORY Never Assessed REASON FOR VISIT [facility] f/u-- pt seen 05/19/17 DX Pleurisy, Costochondritis. Sukhwinder MOORE PLAN OF CARE Activity Details Follow Up keep appt as scheduled with A Quentin LUNA Reason: VITAL SIGNS Height 65 in 2017-05-28 Weight 154.4 lbs 2017-05-28 Temperature 96.9 degrees Fahrenheit 2017-05-28 Heart Rate 69 bpm 2017-05-28 Respiratory Rate 18 2017-05-28 BMI 25.69 kg/m2 2017-05-28 Blood pressure systolic 124 mmHg 2017-05-28 Blood pressure diastolic 81 mmHg 2017-05-28 MEDICATIONS Medication Instructions Dosage Frequency Start Date End Date Duration Status Spiriva Respimat 2.5 MCG/ACT Inhalation Once a day 2 puffs 24h Aug, Active Albuterol Sulfate (2.5 MG/3ML) 0.083% 1 Each by Inhalation route every 4 hours for cough and wheeze for 7 days for wheezing or cough Active Trintellix 5 mg Orally Once a day 1 tablet 24h Mar, Active Naproxen 250 mg 1 tablet by Oral route 2 times per day PRN pain Oct Active PredniSONE 20 mg Orally Once a day 2 tablets 24h May, May, 4 days Active Calcium Citrate 250 mg calcium 1 tablet by Oral route 1 time per day Oct, Active Omeprazole 40 mg Orally Once a [...] Once a day 1 capsule 24h Active Cetirizine HCl 10 MG TAKE 1 TABLET BY MOUTH ONCE DAILY 30 Active Montelukast Sodium 10 MG TAKE 1 TABLET BY MOUTH EVERY NIGHT AT BEDTIME 30 Active RESULTS No Results PROCEDURES Procedure Date Ordered Result Body Site TORADOL (IM) 60 MG/2ML (UP TO 15 MG) May 28, 2017 DEPO MEDROL 40 MG/ML May 28, 2017 THER/PROPH/DIAG INJ, SC/IM May 28, 2017 DEXAMETHASONE 4MG/ML (PER 1 MG) May 28, 2017 INSTRUCTIONS MEDICATIONS ADMINISTERED No Known Medications [...]
--- OUTSIDE RECORDS SUMMARY | 2018-03-14 15:14 | XMS REPORT ---
Author Author KARL Hickey Organization [place] Address Unknown Phone Unavailable Care Team Providers Care Application Programmer Analyst Name Role Phone KARL Hickey Unavailable Unavailable PROBLEMS Type Condition ICD9-CM Code KSW27-SV Code Onset Dates Condition Status SNOMED Code Problem Cyst of right breast N60.01 Active 824851960 Problem COPD exacerbation J44.1 Active 575598055 Problem Chronic obstructive pulmonary disease, unspecified COPD type J44.9 Active 97314306 Problem Screening breast examination Z12.39 Active 698138400 Problem Dysthymia F34.1 Active 46368408 Problem Gastric reflux K21.9 Active 752666104 Problem Gynecologic exam normal Z01.419 Active 858896804 Problem Hyperlipidemia LDL goal <130 E78.5 Active 66971765 Problem Anxiety F41.9 Active 02437863 Problem Epigastric abdominal pain R10.13 Active 66659438 ALLERGIES No Information ENCOUNTERS Encounter Location Date Diagnosis [address] [id number] [place] [id number] June, [address] [id number] [place] [id number] June, Chronic obstructive pulmonary disease, unspecified COPD type J44.9 and Dysthymia F34.[address] [id number] [place] [id number] May, Pleurisy R09.1 and Gastric reflux K21.[address] [id number] [place] [id number] Apr, [facility] [address] [id number] [place] [id number] Apr, Anxiety F41.9 and COPD exacerbation J44.[address] [place] [address] [id number] [place] [address] Apr, [facility] [address] [id number][place] [id number] Mar, Chronic obstructive pulmonary disease, unspecified COPD type J44.9 ; Anxiety F41.9 and Gastric reflux K21.9 [facility] [address] [facility] [id number] [place] [address] Dec, [facility] [address] [id number][place] [address] Oct, COPD exacerbation J44.1 [facility] [address] [facility] [id number], [place] [address] Aug, [facility] [address] [id number][place] [id number] Aug, [facility] [address] [id number], [place] [address] Aug, COPD exacerbation J44.1 and Anxiety F41.9 [facility] [address] [id number], [place] [id number] Jul, [facility] [address] [facility] [id number], [place] [address] Jul, [facility] [address] [id number][place] [id number] Jul, [facility] [address] [id number][place] [address] June, Gynecologic exam normal Z01.419 ; Cyst of right breast N60.01 ; Hyperlipidemia LDL goal <130 E78.5 and Epigastric abdominal pain R10.[address] [facility] [address] [id number] [place] [address] Apr, [facility] [address] [id number], [place] [address] Mar, COPD exacerbation J44.1 and Influenza J11.[address] [facility] [address] [id number], [place] [id number] Feb, [facility] [address] [id number], [place] [address] Feb, Chronic obstructive pulmonary disease, unspecified COPD type J44.9 [facility] [address] [id number][place] [id number] Oct, Chronic obstructive pulmonary disease, unspecified COPD type J44.9 [facility] [address] [id number], [place] [address] Sep, Bronchitis J40 [facility] [address] [id number], [place] [address] Sep, [facility] [address] [id number], [place] [address] May, Screening breast examination Z12.39 and Cyst of right breast N60.01 [facility] [address] [place] [address] AVE [id number], [place] [address] May, [facility] [address] [id number], [place] [id number] May, H/O abnormal mammogram Z87.898 [facility] [address] [place] [address] May, [facility] [address] [facility] [address] [id number], [place] [id number] Apr, [facility] [address]00565[address], [place] [address] Apr, Generalized anxiety disorder F41.1 [facility] [address]00565[address], [place] [address] Mar, [facility] [id number] [place] [address] Feb, [facility] [id number] [place] [address] Feb, Hyperlipidemia E78.5 [facility] [address] [id number], [place] [address] Feb, Thyroid lesion E07.89 [facility] [address] [id number], [place] [address] Feb, Thyroid lesion E07.89 [facility] [address] [address] Feb, [facility] [address] [id number], [place] [address] Feb, COPD exacerbation J44.1 and Shortness of breath R06.02 [facility] [address] [address] Jan, [facility] [address] [id number], [place] [address] Jan, [facility] [address]65[address], [place] [address] Dec, [address] [id number], [place] [address] Dec, [facility] [address], [place] [address] Nov, Generalized anxiety disorder F41.1 and Depression F32.9 [facility] [address], [place] [address] Oct, Panic disorder with agoraphobia and moderate panic attacks 300.21 [facility] [address] [id number], [place] [address] Sep, [facility] [address] [facility] [id number], [place] [address] Sep, Panic disorder with agoraphobia and moderate panic attacks 300.21 [facility] [address] [id number], [place] [address] Sep, [facility] [address] [id number], [place] [address] Sep, COPD (chronic obstructive pulmonary disease) 496 and Anxiety 300.00 [facility] [address] [id number] [place] [address] June, [facility] [address] [id number] [place] [address] June, [facility] [address] [id number] [place] [address] June, [facility] [address] [id number], [place] [address] June, [facility] [address] [id number], [place] [address] June, [facility] [address] [id number], [place] [address] June, COPD (chronic obstructive pulmonary disease) 496 ; Weight gain 783.1 ; Tobacco abuse 305.1 and Tobacco abuse counseling V65.[address] [facility] [address] [id number], [place] [address] June, [facility] [address] [id number], [place] [address] May, [facility] [address] [id number], [place] [address] May, [facility] [place] [facility] [address] [facility] [id number], [place] [address] May, [facility] [place] [facility] [address] [id number], [place] [address] May, [facility] [place] [facility] [address] [id number], [place] [address] Apr, [facility] [place] [facility] [address] [id number], [place] [address] Apr, [facility] [address] [id number] [place] [address] Feb, [facility] [place] [facility] [address] [facility] [id number], [place] [address] Feb, [facility] [address] [id number] [place] [address] Feb, [facility] [address] [id number] [place] [address] Feb, [facility] [address] [id number] [place] [id number] Feb, [facility] [place] [facility] [address] [id number] [place] [address] Feb, [facility] [place] [facility] [address] [id number] [place] [address]- [address] Feb, [facility] [address] [id number] [place] [address] Feb, [facility] [address] [id number] [place] [address] Jan, [facility] [place] [facility] [address] [id number] [place] [address] Jan, [facility] [address] [id number] [place] [address] Jan, [facility] [place] [facility] [address] [id number] [place] [address] Jan, [facility] [place] [facility] [address] [id number] [place] [address] Jan, [facility] [place] [facility] [address] [id number][place] Jan, [facility] [place] [facility] [address] [id number], [place] [address] Jan, [facility] [place] [facility] [address] [id number] [place] [address]- [address]44 Jan, [facility] [place] [facility] [address] [id number] [place] [address]- 95[address] Jan, [facility] [place] [facility] [address] [id number], [place] [address]- [address] Jan, [facility] [place] [facility] [address] [id number], [place] [address] Jan, [facility] [place] [facility] [address] [id number] [place] [address]- [address] Jan, [facility] [place] [facility] [address] [id number] [place] [address]- 7899 Dec, [facility] [place] [facility] [address] [id number] [place] [address]- [address] Dec, [facility] [place] [facility] [address] [id number] [place] [address]- [address] Dec, [facility] [place] [facility] [address] [id number] [place] [address]- 8[address] Dec, [facility] [place] [facility] [address] [id number] [place] [address]- 8569 Dec, [facility] [place] [facility] [address] [id number] [place] [address]- 5489 Dec, [facility] [place] [facility] [address] [id number] [place] [address]- 44[address] Dec, [facility] [place] [facility] [address] [id number], [place] [address]- [address] Dec, [facility] [place] [facility] [address] [id number] [place] [address]- 6[address] Dec, [facility] [place] [facility] [address] [id number], [place] [address]- [address] Dec, [facility] [place] [facility] [address] [id number][place] [address]- 8735 Dec, [facility] [place] [facility] [address] [id number], [place] [address]- [address] Dec, [facility] [place] [facility] [address] [id number], [place] [address]- [address] Nov, [facility] [place] [facility] [address] [id number] [place] [address]- [address] Nov, [facility] [place] [facility] [address] [id number] [place] [address]- 36[address] Nov, [facility] [address] [id number] [place] [address]- 9195 Nov, [facility] [address] [id number] [place] [address]- 0695 Nov, [facility] [address] [id number] [place] [address]- [address] Nov, [facility] [address] [id number] [place] [address]- 1519 Oct, [facility] [address] [id number] [place] [address]- 3033 Oct, [facility] [address] [id number] [place] [address]- 6985 Oct, [facility] [address] [id number] [place] [address]- 6215 Oct, [facility] [address] [id number] [place] [address]- 9[address] Sep, [facility] [address] [id number] [place] [address]- 5398 Sep, [facility] [address] [facility] [id number] [place] [address]- [address] June, [facility] [place] [facility] [address] [id number] [place] [address]- 7[address] 30 May, 2012 [facility] [address] [facility] [id number] [place] [address]- [address] May, [facility] [place] [facility] [address] [facility] [id number] [place] [address]- 4[address] May, [facility] [address] [facility] [id number] [place] [address]- 48[address] 18 May, 2012 [facility] [place] [address] [facility] [id number] [place] [address] 16 May, 2012 [facility] [address], [place] [address] May, [facility] [address] [address] Nov, [facility] [address], [place] [address]- [address] Nov, [facility] [address], [place] [address]- [address] Nov, [facility] [address], [place] [address] Nov, [facility] [address], [place] [address]- [address] Nov, [facility] [address] [address] Nov, [facility] [address]65[address], [place] [address]- [address] Nov, [facility] [address], [place] [address]- [address] Nov, [facility] [address], [place] [address]- [address] Nov, [facility] [address], [place] [address]- [address] Oct, [facility] [address], [place] [address]46 Oct, [facility] [address] [id number] [place] [address] Sep, [facility] [address], [place] [address]- [address] Sep, [facility] [address], [place] [address]- [address] Sep, IMMUNIZATIONS No Known Immunizations SOCIAL HISTORY Never Assessed REASON FOR VISIT [facility] Contact PLAN OF CARE Activity Details Follow Up May use services in future. Reason:hx. of insomnia, mood disturbance VITAL SIGNS MEDICATIONS Unknown Medications RESULTS No [...]
[2018-03-14 15:15] LABS: BASOPHILS # (AUTO) 0.1 10^3/uL (0.0-0.1); BASOPHILS % (AUTO) 1 % (0-10); EOSINOPHILS # (AUTO) 0.4 10^3/uL (0.0-0.3); EOSINOPHILS % (AUTO) 6 % (0-10); HEMATOCRIT 40 % (35-52); HEMOGLOBIN 13.4 G/DL (11.5-16.0); LYMPHOCYTES # (AUTO) 2.1 X 10^3 (1.0-4.0); LYMPHOCYTES % (AUTO) 32 % (12-44); MEAN CORPUSCULAR HEMOGLOBIN 29 PG (25-34); MEAN CORPUSCULAR HGB CONC 34 G/DL (32-36); MEAN CORPUSCULAR VOLUME 86 FL (80-99); MEAN PLATELET VOLUME 10.4 FL (7.4-10.4); MONOCYTES # (AUTO) 0.5 X 10^3 (0.0-1.0); MONOCYTES % (AUTO) 8 % (0-12); NEUTROPHILS # (AUTO) 3.6 X 10^3 (1.8-7.8); NEUTROPHILS % (AUTO) 53 % (42-75); PLATELET COUNT 267 10^3/uL (130-400); RED CELL DISTRIBUTION WIDTH 13.2 % (10.0-14.5); WHITE BLOOD COUNT 6.7 10^3/uL (4.3-11.0)
--- OUTSIDE RECORDS SUMMARY | 2018-03-14 15:15 | XMS REPORT ---
Author Author YOLA ELLIS Organization [employer] Address Unknown Phone Unavailable Care Team Providers Care Gamb Cutter Name Role Phone YOLA ELLIS CP Unavailable Allergies No Known Allergies Problems Problem Type Condition Code Onset Dates Condition Status Problem Unspecified symptom associated with female genital organs 625.9 Active Problem Unspecified breast screening V76.10 Active Problem Routine gynecological examination V72.31 Active Problem Generalized hyperhidrosis 780.8 Active Problem Encounter for long-term (current) use of other medications V58.69 Active Problem Lump or mass in breast 611.72 Active Problem Chronic airway obstruction, not elsewhere classified 496 Active Problem Unspecified sleep disturbance 780.50 Active Problem Unspecified sinusitis (chronic) 473.9 Active Problem Pain in joint, shoulder region 719.41 Active Problem Anxiety state, unspecified 300.00 Active Problem Other dyspnea and respiratory abnormalities 786.09 Active Problem Acute bronchitis 466.0 Active Problem Cough 786.2 Active Problem Personal history of tobacco use, presenting hazards to health V15.82 Active Problem Unspecified chronic bronchitis 491.9 Active Problem Nondependent tobacco use disorder 305.1 Active Problem Anxiety disorder in conditions classified elsewhere 293.84 Active Problem Allergic rhinitis due to pollen 477.0 Active Problem Benign neoplasm of breast 217 Active Problem Counseling on substance use and abuse V65.42 Active Problem Mastodynia 611.71 Active Medications No Known Medications Results No Known Results Summary Purpose [employer] Submission
--- OUTSIDE RECORDS SUMMARY | 2018-03-14 15:15 | XMS REPORT ---
Author Author DARSHAN MURPHY [facility] [employer] Address Unknown Phone Unavailable Care Team Providers Care Supervisor Benzene Refining Name Role Phone DARSHAN MURPHY CP Unavailable Allergies No Known Allergies Problems Problem Type Condition ICD-9 Code Onset Dates Condition Status Problem Unspecified [...] V65.42 Active Problem Mastodynia 611.71 Active Medications Medication Code System Code Instructions Start Date End Date Status Dosage Brintellix [facility] [address]-87 5 MG Orally Once a day Oct 01, 2014 1 tablet Results No Known Results Summary Purpose [employer] Submission
--- OUTSIDE RECORDS SUMMARY | 2018-03-14 15:15 | XMS REPORT ---
Author Author JANEL RIVAS [facility] [employer] Address Unknown Phone Unavailable Care Team Providers Care Bisque Tile Burner Name Role Phone JANEL RIVAS CP Unavailable Allergies No Known Allergies Problems [...]
--- OUTSIDE RECORDS SUMMARY | 2018-03-14 15:15 | XMS REPORT ---
Author Author [facility] Address [address] [place] [address] Care Team Providers Care Vending Machine Filler Name Role Phone STACIA HAQ Unavailable PROBLEMS Type Condition ICD9-CM Code FNB06-LY Code Onset Dates Condition Status SNOMED Code Problem Cyst of right breast N60.01 Active 910959464 Problem Screening breast examination Z12.39 Active 652698179 Problem Anxiety F41.9 Active 60740460 Problem Epigastric abdominal pain R10.13 Active 58333324 Problem COPD exacerbation J44.1 Active 361236685 Problem Chronic obstructive pulmonary disease, unspecified COPD type J44.9 Active 60322413 Problem Gynecologic exam normal Z01.419 Active 719755005 Problem Hyperlipidemia LDL goal <130 E78.5 Active 94657139 ALLERGIES Substance Reaction Event Type Date Status N.K.D.A. Unknown Non Drug Allergy Mar, Unknown SOCIAL HISTORY No smoking Hx information available PLAN OF CARE Activity Details Follow Up 2 - 3 Days Reason:if s/s are not improved VITAL SIGNS Height 65 in 2016-03-17 Weight 137.3 lbs 2016-03-17 Temperature 97.1 degrees Fahrenheit 2016-03-17 Heart Rate 83 bpm 2016-03-17 Respiratory Rate 18 2016-03-17 BMI 22.85 kg/m2 2016-03-17 Blood pressure systolic 110 mmHg 2016-03-17 Blood pressure diastolic 64 mmHg 2016-03-17 MEDICATIONS Medication Instructions Dosage Frequency Start Date End Date Duration Status Naproxen 250 mg 1 tablet by Oral route 2 times per day PRN pain Oct Active Advair Diskus 250-50 MCG/DOSE Inhalation Twice a day 1 puffs by Inhalation route 2 times per day Rinse mouth with water and spit after use 12h Jan, Active Fish Oil 1000 MG Orally Once a day 1 capsule 24h Active Calcium Citrate 250 mg calcium 1 tablet by Oral route 1 time per day Oct, Active Montelukast Sodium 10 MG Orally Once a day 1 tablet in the evening 24h Active PredniSONE 20 mg Orally Once a day 2 tablet 24h Mar, Mar, 05 days Active ProAir HFA 108 (90 Base) MCG/ACT Inhalation every 4 hrs 2 puffs as needed 4h Active Lorazepam 2 MG Orally 3 times a day prn 1 tablet as needed Active Albuterol Sulfate (2.5 MG/3ML) 0.083% 1 Each by Inhalation route every 4 hours for cough and wheeze for 7 days for wheezing or cough Active Spiriva HandiHaler 18 MCG Inhalation Once a day 1 capsule 24h June, Active Doxycycline Monohydrate 100 mg Orally every 12 hrs 1 capsule 12h Mar, Mar, 10 days Active Cetirizine HCl 10 MG TAKE 1 TABLET BY MOUTH ONCE DAILY NEEDED Active Brintellix 5 mg Orally Once a day 1 tablet 24h Sep, Active Phenergan 50 MG Orally every 12 hrs 0.5 tablet as needed 12h Active RESULTS No Results PROCEDURES Procedure Date Ordered Related Diagnosis Body Site Office Visit, Est Pt., Level 3 Mar 17, 2016 IMMUNIZATIONS No Known Immunizations
--- OUTSIDE RECORDS SUMMARY | 2018-03-14 15:15 | XMS REPORT ---
Author Author YOLA ELLIS Organization [employer] Address Unknown Phone Unavailable Care Team Providers Care Nail Machine Operator Name Role Phone YOLA ELLIS CP Unavailable [...]
--- OUTSIDE RECORDS SUMMARY | 2018-03-14 15:15 | XMS REPORT ---
Author Author YOLA ELLIS [email or web address] Address [address] [place] [address] Care Team Providers Care Battery Charger Conveyor Line Name Role Phone YOLA ELLIS Unavailable PROBLEMS Type Condition ICD9-CM Code GMX27-ED Code Onset Dates Condition Status SNOMED Code Problem Cyst of right breast N60.01 Active 309011588 Problem COPD exacerbation J44.1 Active 052054285 Problem Chronic obstructive pulmonary disease, unspecified COPD type J44.9 Active 38233785 Problem Screening breast examination Z12.39 Active 982657073 Problem Dysthymia F34.1 Active 28851396 Problem Gastric reflux K21.9 Active 861463738 Problem Gynecologic exam normal Z01.419 Active 700608166 Problem Hyperlipidemia LDL goal <130 E78.5 Active 99192837 Problem Anxiety F41.9 Active 64912983 Problem Epigastric abdominal pain R10.13 Active 88101949 ALLERGIES No Information ENCOUNTERS Encounter Location Date Diagnosis [employer] [facility] [address] [id number] [place] [id number] June, [facility] [id number][place] [id number] June, Chronic obstructive pulmonary disease, unspecified COPD type J44.9 and Dysthymia F34.1 [facility] [address] [id number] [place] [address] May, Pleurisy R09.1 and Gastric reflux K21.9 [facility] [address] [id number] [place] [id number] Apr, [facility] [address] [id number] [place] [id number] Apr, Anxiety F41.9 and COPD exacerbation J44.1 [facility] [address] [id number][place] [id number] Apr, [facility] [address] [id number][place] [id number] Mar, Chronic obstructive pulmonary disease, unspecified COPD type J44.9 ; Anxiety F41.9 and Gastric reflux K21.9 [facility] [address] [id number] [address] Dec, [facility] [address] [id number][place] [id number] Oct, COPD exacerbation J44.1 [facility] [address] [id number], [place] [address] Aug, [facility] [address] [id number][place] [address] Aug, [facility] [address] [id number], [place] [address] Aug, COPD exacerbation J44.1 and Anxiety F41.9 [facility] [address] [id number][place] [id number] Jul, [facility] [address] [id number], [place] [address] Jul, [facility] [address] [id number], [place] [id number] Jul, [facility] [address] [id number][place] [address] June, Gynecologic exam normal Z01.419 ; Cyst of right breast N60.01 ; Hyperlipidemia LDL goal <130 E78.5 and Epigastric abdominal pain R10.[address] [facility] [address] [id number], [place] [id number] Apr, [facility] [address] [id number], [place] [id number] Mar, COPD exacerbation J44.1 and Influenza J11.[address] [facility] [address] [id number], [place] [id number] Feb, [facility] [address] [id number], [place] [address] Feb, Chronic obstructive pulmonary disease, unspecified COPD type J44.9 [facility] [address] [id number][place] [id number] Oct, Chronic obstructive pulmonary disease, unspecified COPD type J44.9 [facility] [address] [id number], [place] [id number] Sep, Bronchitis J40 [facility] [address] [id number], [place] [id number] Sep, [facility] [address] [id number], [place] [address] May, Screening breast examination Z12.39 and Cyst of right breast N60.01 [facility] [address] [id number], [place] [id number] May, [facility] [address] [id number], [place] [address] May, H/O abnormal mammogram Z87.898 [facility] [address] [id number], [place] [address] May, [facility] [address] [id number], [place] [id number] Apr, [facility] [address] [id number], [place] [address] Apr, Generalized anxiety disorder F41.1 [facility] [address] [id number], [place] [address] Mar, [facility] [id number] [place] [address] Feb, [facility] [address] [id number] [address] Feb, Hyperlipidemia E78.5 [facility] [address] [id number][place] [id number] Feb, Thyroid lesion E07.89 [facility] [address] [id number], [place] [id number] Feb, Thyroid lesion E07.89 [facility] [address] [id number], [place] [address] Feb, [facility] [address] [id number], [place] [id number] Feb, COPD exacerbation J44.1 and Shortness of breath R06.02 [facility] [address]00565100[place] [address] Jan, [facility] [address] [id number], [place] [id number] Jan, [facility] [address]00565100[place], [place] [address] Dec, [facility] [address] [id number], [place] [address] Dec, [facility] [address]65100[place], [place] [address] Nov, Generalized anxiety disorder F41.1 and Depression F32.9 [facility] [address]00565100[place], [place] [address] Oct, Panic disorder with agoraphobia and moderate panic attacks 300.21 [facility] [address] [id number], [place] [id number] Sep, [facility] [address] [facility] [id number] [address] Sep, Panic disorder with agoraphobia and moderate panic attacks 300.21 [facility] [address] [id number], [place] [id number] Sep, [facility] [address] [id number], [place] [id number] Sep, COPD (chronic obstructive pulmonary disease) 496 and Anxiety 300.[address] [facility] [address] [id number] [place] [id number] June, [facility] [address] [id number] [place] [id number] June, [facility] [address] [id number], [place] [address] June, [facility] [address] [id number] [place] [id number] June, [facility] [address] [id number], [place] [id number] June, [facility] [address] [id number], [place] [address] June, COPD (chronic obstructive pulmonary disease) 496 ; Weight gain 783.1 ; Tobacco abuse 305.1 and Tobacco abuse counseling V65.[address] [facility] [address] [id number], [place] [id number] June, [facility] [address] [id number], [place] [id number] May, [facility] [address] [id number], [place] [id number] May, [facility] [place] [facility] [address] [facility] [id number], [place] [address] May, [facility] [place] [facility] [address] [facility] [id number], [place] [address] May, [facility] [place] [facility] [address] [facility] [id number] [address] Apr, [facility] [place] [facility] [address] [facility] [id number], [place] [address] Apr, [facility] [address] [facility] [id number], [place] [address] Feb, [facility] [place] [facility] [address] [facility] [id number] [address] Feb, [facility] [address] [id number] [place] [address] Feb, [facility] [address] [id number] [place] [address] Feb, [facility] [address] [id number] [place] [address] Feb, [facility] [place] [facility] [address] [id number] [place] [address] Feb, [facility] [place] [facility] [address] [id number] [place] [address] Feb, [facility] [address] [id number] [place] [address] Feb, [facility] [address] [id number] [place] [address] Jan, [facility] [address] [id number] [place] [address]- [address] Jan, [facility] [address] [id number] [place] [id number] Jan, [facility] [place] [facility] [address] [id number] [place] [address]- [address] Jan, [facility] [place] [facility] [address] [facility] [id number] [place] [address]- [address] Jan, [facility] [place] [facility] [address] [id number] [place] [address]- 6[address] Jan, [facility] [place] [facility] [address] [id number] [place] [address] Jan, [facility] [place] [facility] [address] [id number] [place] [address]- [address] Jan, [facility] [place] [facility] [address] [id number] [place] [address]- 7266 Jan, [facility] [place] [facility] [address] [id number] [place] [address]- 6[address] Jan, [facility] [place] [facility] [address] [id number] [place] [address]- [address] Jan, [facility] [place] [facility] [address] [id number] [place] [address]- [address]26 Jan, [facility] [place] [facility] [address] [id number] [place] [address]- [address] Dec, [facility] [place] [facility] [address] [id number] [place] [address]- [address]851 Dec, [facility] [place] [facility] [address] [id number] [place] [address]- [address] Dec, [facility] [place] [facility] [address] [id number] [place] [address]- 9755 Dec, [facility] [place] [facility] [address] [id number] [place] [address]- 3943 Dec, [facility] [place] [facility] [address] [id number] [place] [address]- 8951 Dec, [facility] [place] [facility] [address] [id number] [place] [address]- [address] Dec, [facility] [place] [facility] [address] [id number] [place] [address]- 8729 Dec, [facility] [place] [facility] [address] [id number] [place] [address]- 8166 Dec, [facility] [place] [facility] [address] [id number] [place] [address]- 3096 Dec, [facility] [place] [facility] [address] [id number] [place] [address]- 8697 Dec, [facility] [place] [facility] [address] [id number] [place] [address]- [address]88 Dec, [facility] [place] [facility] [address] [id number] [place] [address]- [address] Nov, [facility] [place] [facility] [address] [id number] [address] Nov, [facility] [address] [id number] [place] [address]- [address] Nov, [facility] [address] [id number] [place] [address]- 4070 Nov, [facility] [address] [facility] [id number] [place] [address]- 5[address] Nov, [facility] [address] [id number] [place] [address]- 1579 Nov, [facility] [address] [id number] [place] [address]- [address] Oct, [facility] [address] [id number] [place] [address]- [address] Oct, [facility] [address] [id number] [place] [address]- 7026 Oct, [facility] [address] [id number] [place] [address]- [address]695 Oct, [facility] [address] [id number] [place] [address]- [address]46 Sep, [facility] [address] [id number] [place] [address]- [address] Sep, [facility] [address] [id number] [address] June, [facility] [address] [id number] [address] May, [facility] [address] [id number] [place] [address]- 69[address] May, [facility] [place] [facility] [address] [facility] [id number] [place] [address]- [address] May, [facility] [address] [facility] [id number] [place] [address]- [address] May, [facility] [address] [id number][place] [id number] 16 May, 2012 [facility] [address] [address] May, [facility] [id number], [place] [address] Nov, [facility] [address]65100[place], [place] [address] Nov, [facility] [address]65100[place], [place] [address] Nov, [facility] [address], [place] [address]- [address] Nov, [facility] [address]65100[place], [place] [address] Nov, [facility] [id number], [place] [id number] Nov, [facility] [address], [place] [address] Nov, [facility] [address]100[place] [address] Nov, [facility] [address], [place] [address]- [address] Nov, [facility] [address]65100[place], [place] [address] Oct, [facility] [address]00565100[place], [place] [address]- [address] Oct, [facility] [address] [id number] [address] Sep, [facility] [address]65100[place] [address] Sep, [facility] [address] [id number], [place] [address] Sep, IMMUNIZATIONS No Known Immunizations SOCIAL HISTORY Never Assessed REASON FOR VISIT PALS Renewal PLAN OF CARE VITAL SIGNS MEDICATIONS Medication Instructions Dosage Frequency Start Date End Date Duration Status Advair Diskus 250-50 MCG/DOSE Inhalation Twice a day 1 puffs by Inhalation route 2 times per day Rinse mouth with water and spit after use 12h Jan, Active Trintellix 5 mg Orally Once a day 1 tablet 24h 28 Mar, 2017 Active ProAir HFA 108 (90 Base) MCG/ACT Inhalation every 4 hrs 2 puffs as needed 4h Active RESULTS No Results PROCEDURES No Known [...]
--- OUTSIDE RECORDS SUMMARY | 2018-03-14 15:15 | XMS REPORT ---
Author Author [facility] ELLIS [facility] Address [address] [place] [address] Care Team Providers Care Customer Service Attendant Name Role Phone YOLA ELLIS Unavailable PROBLEMS Type Condition ICD9-CM Code LNB68-LS Code Onset Dates Condition Status SNOMED Code Problem Cyst of right breast N60.01 Active 452979422 Problem Screening breast examination Z12.39 Active 065702466 Problem Anxiety F41.9 Active 18173692 Problem Epigastric abdominal pain R10.13 Active 18619666 Problem COPD exacerbation J44.1 Active 695363902 Problem Chronic obstructive pulmonary disease, unspecified COPD type J44.9 Active 69209143 Problem Gynecologic exam normal Z01.419 Active 423746177 Problem Hyperlipidemia LDL goal <130 E78.5 Active 05625145 ALLERGIES No Known Allergies SOCIAL HISTORY Never Assessed PLAN OF CARE Activity Details Follow Up 2 Months Reason:bladder issues VITAL SIGNS Height 65 in 2016-07-08 Weight 146.8 lbs 2016-07-08 Temperature 97.1 degrees Fahrenheit 2016-07-08 Heart Rate 74 bpm 2016-07-08 Respiratory Rate 18 2016-07-08 BMI 24.43 kg/m2 2016-07-08 Blood pressure systolic 128 mmHg 2016-07-08 Blood pressure diastolic 80 mmHg 2016-07-08 MEDICATIONS Medication Instructions Dosage Frequency Start Date End Date Duration Status Advair Diskus 250-50 MCG/DOSE Inhalation Twice a day 1 puffs by Inhalation route 2 times per day Rinse mouth with water and spit after use 12h Jan, Active Albuterol Sulfate (2.5 MG/3ML) 0.083% 1 Each by Inhalation route every 4 hours for cough and wheeze for 7 days for wheezing or cough Active Calcium Citrate 250 mg calcium 1 tablet by Oral route 1 time per day Oct, Active Brintellix 5 mg Orally Once a day 1 tablet 24h Sep, Active Naproxen 250 mg 1 tablet by Oral route 2 times per day PRN pain Oct Active Fish Oil 1000 MG Orally Once a day 1 capsule 24h Active Omeprazole 20 mg Orally Once a day 1 capsule 24h June, Active ProAir HFA 108 (90 Base) MCG/ACT Inhalation every 4 hrs 2 puffs as needed 4h Active Lorazepam 2 MG Orally 3 times a day prn 1 tablet as needed Active Montelukast Sodium 10 MG Take 1 Tablet (10 mg) by mouth daily at bedtime. Active Cetirizine HCl 10 MG Take 1 Tablet (10 mg) by mouth daily. Active RESULTS No Results PROCEDURES Procedure Date Ordered Result Body Site URINALYSIS, AUTO, W/O SCOPE July 08, 2016 ROUTINE VENIPUNCTURE 2016-07-08 N/A LIPID PANEL July 08, 2016 IMMUNOASSAY,INFECTIOUS AGENT July 08, 2016 TEST FOR BLOOD, FECES July 08, 2016 ASSAY THYROID STIM HORMONE July 08, 2016 COMPREHEN METABOLIC PANEL July 08, 2016 COMPLETE CBC W/AUTO DIFF WBC July 08, 2016 ASSAY OF FREE THYROXINE July 08, 2016 IMMUNIZATIONS No Known Immunizations MEDICAL (GENERAL) HISTORY Type Description Date Medical History Anxiety state, unspecified Medical History Unspecified sleep disturbance Medical History Personal history of tobacco use, presenting hazards to health Medical History Cystocele Medical History COPD Medical History bladder proplapse Medical History PPV 23 Medical History allergic rhinitis Medical History 02-20-15 overnight pulse ox, desat below 88% for 3 minutes Surgical History breast biopsy 1986 Surgical History partial hysterectomy-fibroids 1995 Surgical History arthroscopic knee surgery 1987 Surgical History laparoscopy 1983 Surgical History cholecystectomy Surgical History bladder prolapse repair 01/2015 Hospitalization History resp issues 03/25 Hospitalization History resp issues 12/23 Hospitalization History panic attacks/ resp problems 07/23 Hospitalization History bladder prolapse 02/05/15
--- OUTSIDE RECORDS SUMMARY | 2018-03-14 15:15 | XMS REPORT ---
Author Author [facility] Address [address] [place] [address] Care Team Providers Care Production Broacher Name Role Phone YOLA ELLIS Unavailable PROBLEMS Type Condition ICD9-CM Code [id number] Code Onset Dates Condition Status SNOMED Code Problem Cyst of right breast N60.01 Active 144123139 Problem COPD exacerbation J44.1 Active 528881134 Problem Chronic obstructive pulmonary disease, unspecified COPD type J44.9 Active 57936044 Problem Screening breast examination Z12.39 Active 914738077 Problem Dysthymia F34.1 Active 78166821 Problem Gastric reflux K21.9 Active 565307417 Problem Gynecologic exam normal Z01.419 Active 868222330 Problem Hyperlipidemia LDL goal <130 E78.5 Active 84939005 Problem Anxiety F41.9 Active 68358541 Problem Epigastric abdominal pain R10.13 Active 61247407 ALLERGIES No Information ENCOUNTERS Encounter Location Date Diagnosis [address] [id number] [place] [id number] June[facility] [id number][place] [address] June, Chronic obstructive pulmonary disease, unspecified COPD type J44.9 and Dysthymia F34.[address] [facility] [address] [id number] [place] [id number] May, Pleurisy R09.1 and Gastric reflux K21.9 [facility] [address] [id number] [place] [id number] Apr, [facility] [address] [id number] [place] [id number] Apr, Anxiety F41.9 and COPD exacerbation J44.1 [facility] [address] [id number], [place] [id number] Apr, [facility] [address] [id number][place] [id number] Mar, Chronic obstructive pulmonary disease, unspecified COPD type J44.9 ; Anxiety F41.9 and Gastric reflux K21.9 [facility] [address] [id number] [address] Dec, [facility] [address] [id number], [place] [id number] Oct, COPD exacerbation J44.1 [facility] [address] [id number] [address] Aug, [facility] [address] [address] [id number], [place] [id number] Aug, [facility] [address] [id number][place] [id number] Aug, COPD exacerbation J44.1 and Anxiety F41.9 [facility] [address] [id number][place] [id number] Jul, [facility] [address] [id number] [address] Jul, [facility] [address] [id number], [place] [address] Jul, [facility] [address] [id number], [place] [id number] June, Gynecologic exam normal Z01.419 ; Cyst of right breast N60.01 ; Hyperlipidemia LDL goal <130 E78.5 and Epigastric abdominal pain R10.[address] [facility] [address] [id number], [place] [id number] Apr, [facility] [address] [id number][place] [id number] Mar, COPD exacerbation J44.1 and Influenza J11.[address] [facility] [address] [id number], [place] [id number] Feb, [facility] [address] [id number][place] [id number] Feb, Chronic obstructive pulmonary disease, unspecified COPD type J44.9 [facility] [address] [id number], [place] [address] Oct, Chronic obstructive pulmonary disease, unspecified COPD type J44.9 [facility] [address] [id number], [place] [address] Sep, Bronchitis J40 [facility] [address] [id number][place] [address] Sep, [facility] [address] [id number], [place] [id number] May, Screening breast examination Z12.39 and Cyst of right breast N60.01 [facility] [address] [id number][place] [id number] May, [facility] [address] [id number], [place] [address] May, H/O abnormal mammogram Z87.898 [facility] [address] [id number] [address] May, [facility] [address] [id number], [place] [id number] Apr, [facility] [address] [id number] [address] Apr, Generalized anxiety disorder F41.1 [facility] [address] [id number] [address] Mar, [facility] [address] [place] [address] Feb, [facility] [address] [id number] [address] Feb, Hyperlipidemia E78.5 [facility] [address] [id number], [place] [id number] Feb, Thyroid lesion E07.89 [facility] [address] [id number], [place] [id number] Feb, Thyroid lesion E07.89 [facility] [address] [id number] [address] Feb, [facility] [address] [id number], [place] [id number] Feb, COPD exacerbation J44.1 and Shortness of breath R06.02 [facility] [address]00565100[place] [id number] Jan, [facility] [address] [id number], [place] [id number] Jan, [facility] [address]00565100[place] [address] Dec, [facility] [address] [id number], [place] [id number] Dec, [facility] [address]00565100[place] [address] Nov, Generalized anxiety disorder F41.1 and Depression F32.9 [facility] [address]00565100[place] [address] Oct, Panic disorder with agoraphobia and moderate panic attacks 300.21 [facility] [address] [id number], [place] [id number] Sep, [facility] [address] [facility] [id number] [address] Sep, Panic disorder with agoraphobia and moderate panic attacks 300.21 [facility] [address] [id number], [place] [address] Sep, [facility] [address] [id number], [place] [id number] Sep, COPD (chronic obstructive pulmonary disease) 496 and Anxiety 300.[address] [facility] [address] [id number] [place] [id number] June, [facility] [address] [id number] [place] [id number] June, [facility] [address] [id number], [place] [address] June, [facility] [address] [id number] [place] [address] June, [facility] [address] [id number], [place] [id number] June, [facility] [address] [id number], [place] [address] June, COPD (chronic obstructive pulmonary disease) 496 ; Weight gain 783.1 ; Tobacco abuse 305.1 and Tobacco abuse counseling V65.[address] [facility] [address] [id number], [place] [id number] June, [facility] [address] [id number], [place] [address] May, [facility] [address] [id number], [place] [address]78[address] May, [facility] [place] [facility] [address] [facility] [id number] [address] May, [facility] [place] [facility] [address] [facility] [id number] [place] [address] May, [facility] [place] [facility] [address] [facility] [id number] [address] Apr, [facility] [place] [facility] [address] [facility] [id number] [address] Apr, [facility] [address] [facility] [id number][place] [address] Feb, [facility] [place] [facility] [address] [facility] [id number] [place] [address] Feb, [facility] [address] [id number] [place] [id number] Feb, [facility] [address] [id number] [place] [address] Feb, [facility] [address] [id number] [place] [address] Feb, [facility] [place] [facility] [address] [id number] [place] [address]- [address] Feb, [facility] [place] [facility] [address] [id number] [place] [address] Feb, [facility] [address] [id number] [place] [address] Feb, [facility] [address] [id number] [place] [address] Jan, [facility] [address] [id number] [place] [address] Jan, [facility] [address] [id number] [place] [id number] Jan, [facility] [place] [facility] [address] [id number] [place] [address]- [address] Jan, [facility] [place] [facility] [address] [facility] [id number] [place] [address]- [address] Jan, [facility] [place] [facility] [address] [id number] [place] [address]- 47[address] Jan, [facility] [place] [facility] [address] [id number] [place] [address]- 69[address] Jan, [facility] [place] [facility] [address] [id number] [place] [address]- [address] Jan, [facility] [place] [facility] [address] [id number] [place] [address]- 7[address] Jan, [facility] [place] [facility] [address] [id number] [place] [address]- 4[address] Jan, [facility] [place] [facility] [address] [id number] [place] [address]- 79[address] Jan, [facility] [place] [facility] [address] [id number] [place] [address]- [address] Jan, [facility] [place] [facility] [address] [id number] [place] [address]- 64[address] Dec, [facility] [place] [facility] [address] [id number] [place] [address]- [address]78 Dec, [facility] [place] [facility] [address] [id number] [place] [address]- 64[address] Dec, [facility] [place] [facility] [address] [id number] [place] [address]- 9[address] Dec, [facility] [place] [facility] [address] [id number] [place] [address]- 0[address] Dec, [facility] [place] [facility] [address] [id number] [place] [address]- 5872 Dec, [facility] [place] [facility] [address] [id number] [place] [address]- 5968 Dec, [facility] [place] [facility] [address] [id number] [place] [address]- 1607 Dec, [facility] [place] [facility] [address] [id number] [place] [address]- 95[address] Dec, [facility] [place] [facility] [address] [id number] [place] [address]- 7630 Dec, [facility] [place] [facility] [address] [id number] [place] [address]- 5[address] Dec, [facility] [place] [facility] [address] [id number] [place] [address]- 5377 Dec, [facility] [place] [facility] [address] [id number] [place] [address]- 5[address] Nov, [facility] [place] [facility] [address] [id number] [address]- [address] Nov, [facility] [address] [id number] [place] [address]- [address]40 Nov, [facility] [address] [id number] [place] [address]- 6767 Nov, [facility] [address] [facility] [id number] [place] [address]- 8090 Nov, [facility] [address] [id number] [place] [address]- 7292 Nov, [facility] [address] [id number] [place] [address]- 6495 Oct, [facility] [address] [id number] [place] [address]- 8417 Oct, [facility] [address] [id number] [place] [address]- [address] Oct, [facility] [address] [id number] [place] [address]- 2181 Oct, [facility] [address] [id number] [place] [address]- 5[address] Sep, [facility] [address] [id number] [place] [address]- [address] Sep, [facility] [address] [id number] [address] June, [facility] [address] [id number] [place] [address]- [address] May, [facility] [address] [id number] [place] [address]- 6[address] May, [facility] [place] [facility] [address] [facility] [id number] [place] [address]- [address] May, [facility] [address] [facility] [id number] [place] [address]- [address] May, [facility] [address] [id number][place] [id number] 16 May, 2012 [facility] [address]00565100[place] [address]- [address] May, [facility] [id number], [place] [address] Nov, [facility] [address]00565100[place] [address]- [address] Nov, [facility] [address]00565100[place] [address]- [address] Nov, [facility] [address]00565100[place] [address]- [address] Nov, [facility] [address]00565100[place] [address]- [address] Nov, [facility] [id number], [place] [address] Nov, [facility] [address]00565100[place] [address]- [address] Nov, [facility] [address]00565100[place] [address]- [address] Nov, [facility] [address]00565100[place] [address]- [address] Nov, [facility] [address]00565100[place] [address] Oct, [facility] [address] [id number] [address]- [address] Oct, [facility] [address] [id number] [id number] Sep, [facility] [address]00565100[place] [address]- [address] Sep, [facility] [address] [id number] [address]- [address]26 Sep, IMMUNIZATIONS No Known Immunizations SOCIAL HISTORY Never Assessed REASON FOR VISIT requesting samples PLAN OF CARE VITAL SIGNS MEDICATIONS Unknown [...]
--- OUTSIDE RECORDS SUMMARY | 2018-03-14 15:16 | XMS REPORT ---
Author Author JANEL RIVAS [facility] eClinicalWorks Address Unknown Phone Unavailable Care Team Providers Care Minilab Operator Name Role Phone JANEL RIVAS CP Unavailable Allergies, Adverse Reactions, Alerts Substance Reaction Event Type N.K.D.A. Info Not Available Non Drug Allergy Problems Problem Type Condition ICD-9 Code Onset [...] airway obstruction, not elsewhere classified 496 Active Assessment Panic disorder with agoraphobia and moderate panic attacks 300.21 Active Problem Unspecified sleep disturbance 780.50 Active [...] Instructions Start Date End Date Status Dosage Lorazepam [facility] [address]-31 2 MG Orally 3 times a day prn 1 tablet as needed ProAir HFA [facility] [address]-24 90 mcg/actuation Inhalation 4-6 hours as needed dyspnea Feb 06, 2014 inhale 2 puffs by Inhalation route every 4 hours as needed PRN shortness of breath/cough Ultram [facility] [address]-58 50 mg Nov 01, 2013 take 0.5 tablet by Oral route every 6 hours as needed severe pain Naproxen [facility] [address]-57 250 mg Nov 01, 2013 1 tablet by Oral route 2 times per day PRN pain Spiriva HandiHaler [facility] [address]-84 18 MCG Inhalation Once a day June 12, 2014 1 capsule Advair Diskus [facility] [address]-63 250-50 MCG/DOSE Inhalation Twice a day Jan 13, 2014 1 puffs by Inhalation route 2 times per day Rinse mouth with water and spit after use Calcium Citrate [facility] 00[address]-06591 250 mg calcium Nov 01, 2013 1 tablet by Oral route 1 time per day Flonase [facility] [address]-94 50 mcg/actuation Nov 01, 2013 2 sprays by Nasal route 1 time per day Cetirizine HCl [facility] [address]-71 10 MG Orally Once a day June 27, 2014 1 tablet as needed Albuterol Sulfate [facility] 96007616278 (2.5 MG/3ML) 0.083% 1 Each by Inhalation route every 4 hours for cough and wheeze for 7 days for wheezing or cough Brintellix [facility] [address]-73 5 MG Orally Once a day Oct 01, 2014 1 tablet Procedures Procedure Coding System Code Date Office Visit, Rajan Pt., Level 3 CPT-4 21328 Nov 01, 2014 Vital Signs Date/Time: Nov 01, 2014 Temperature 98.0 F Weight 139 lbs Height 65 in BMI 23.13 Index Blood Pressure Diastolic 80 mmHg Blood Pressure Systolic 128 mmHg Cardiac Monitoring Heart Rate 64 bpm Results No Known Results Summary Purpose eClinicalWorks Submission
--- OUTSIDE RECORDS SUMMARY | 2018-03-14 15:16 | XMS REPORT ---
Author Author YOLA ELLIS [facility] eClinicalWorks Address Unknown Phone Unavailable Care Team Providers Care Assistant Sales Manager Name Role Phone YOLA ELLIS CP Unavailable Allergies, Adverse Reactions, Alerts Substance Reaction Event Type N.K.D.A. 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 Active Assessment Shortness of breath R06.02 Active Problem Counseling on substance use and abuse V65.42 Active Problem Mastodynia 611.71 Active Medications Medication Code System Code Instructions Start Date End Date Status Dosage ProAir HFA [facility] [address]-79 90 mcg/actuation Inhalation 4-6 hours as needed dyspnea Feb 06, 2014 inhale 2 puffs by Inhalation route every 4 hours as needed PRN shortness of breath/cough Spiriva HandiHaler [facility] [address]-09 18 MCG Inhalation Once a day June 12, 2014 1 capsule Lorazepam [facility] [address]-30 2 MG Orally 3 times a day prn 1 tablet as needed Brintellix [facility] [address]-23 5 MG Orally Once a day Oct 01, 2014 1 tablet Calcium Citrate [facility] [address]-09287 250 mg calcium Nov 01, 2013 1 tablet by Oral route 1 time per day Naproxen [facility] [address]-96 250 mg Nov 01, 2013 1 tablet by Oral route 2 times per day PRN pain Advair Diskus [facility] [address]-20 250-50 MCG/DOSE Inhalation Twice a day Jan 13, 2014 1 puffs by Inhalation route 2 times per day Rinse mouth with water and spit after use PredniSONE [facility] [address]-10 20 MG Orally Once a day Feb 13, 2015 60mg x 3d, 40mg x 3 d, 20mg x 3 d, 10mg x 3 d then stop Flonase NDC 0 50 mcg/actuation Nov 01, 2013 2 sprays by Nasal route 1 time per day Cetirizine HCl [facility] 04562806234 10 MG Orally Once a day 1 tablet as needed Albuterol Sulfate [facility] 42193467481 (2.5 MG/3ML) 0.083% 1 Each by Inhalation route every 4 hours for cough and wheeze for 7 days for wheezing or cough Procedures Procedure Coding System Code Date ALBUTEROL INHAL UNIT DOSE 1 MG CPT-4 J7613 Feb 13, 2015 NEB/MDI RX INITIAL CPT-4 47894 Feb 13, 2015 MEASURE BLOOD OXYGEN LEVEL CPT-4 58557 Feb 13, 2015 Office Visit, Est Pt., Level 4 CPT-4 69662 Feb 13, 2015 Vital Signs Date/Time: Feb 13, 2015 Temperature 97.4 F Weight 128.8 lbs Height 65 in Oximetry 95 % Blood Pressure Diastolic 78 mmHg Blood Pressure Systolic 110 mmHg Cardiac Monitoring Heart Rate 78 bpm BMI 21.43 Index Results Name Result Date Reference Range Unit Abnormality Flag NEBULIZER TREATMENT ALBUTEROL UNIT DOSE FORM INHALED Summary Purpose eClinicalWorks Submission
--- OUTSIDE RECORDS SUMMARY | 2018-03-14 15:16 | XMS REPORT ---
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 Active Assessment Depression F32.9 Active Problem Counseling on substance use and abuse V65.42 Active Problem Mastodynia 611.71 Active Medications Medication Code System Code Instructions Start Date End Date Status Dosage Flonase [facility] [address]-35 50 mcg/actuation Nov 01, 2013 2 sprays by Nasal route 1 time per day Calcium Citrate [facility] 86556-93824 250 mg calcium Nov 01, 2013 1 tablet by Oral route 1 time per day Albuterol Sulfate [facility] 09556901691 (2.5 MG/3ML) 0.083% 1 Each by Inhalation route every 4 hours for cough and wheeze for 7 days for wheezing or cough ProAir HFA [facility] [address]-76 90 mcg/actuation Inhalation 4-6 hours as needed dyspnea Feb 06, 2014 inhale 2 puffs by Inhalation route every 4 hours as needed PRN shortness of breath/cough Brintellix [facility] [address]-18 5 MG Orally Once a day Oct 01, 2014 1 tablet Spiriva HandiHaler [facility] [address]-74 18 MCG Inhalation Once a day June 12, 2014 1 capsule Advair Diskus [facility] [address]-20 250-50 MCG/DOSE Inhalation Twice a day Jan 13, 2014 1 puffs by Inhalation route 2 times per day Rinse mouth with water and spit after use Cetirizine HCl [facility] [address]-86 10 MG Orally Once a day June 27, 2014 1 tablet as needed Naproxen [facility] [address]-04 250 mg Nov 01, 2013 1 tablet by Oral route 2 times per day PRN pain Lorazepam [facility] [address]-58 2 MG Orally 3 times a day prn 1 tablet as needed Procedures Procedure Coding System Code Date Office Visit, Est Pt., Level 3 CPT-4 02058 Nov 29, 2014 Vital Signs Date/Time: Nov 29, 2014 Cardiac Monitoring Heart Rate 64 bpm Weight 134.4 lbs Height 65 in BMI 22.36 Index Blood Pressure Diastolic 68 mmHg Blood Pressure Systolic 102 mmHg Results No Known Results Summary Purpose eClinicalWorks Submission
--- OUTSIDE RECORDS SUMMARY | 2018-03-14 15:16 | XMS REPORT ---
Author Author YOLA ELLIS [facility] Address [address] [place] [address] Care Team Providers Care Guest Services Lead Name Role Phone YOLA ELLIS Unavailable PROBLEMS Type Condition ICD9-CM Code HKK69-EN Code Onset Dates Condition Status SNOMED Code Problem Cyst of right breast N60.01 Active 935606756 Problem Screening breast examination Z12.39 Active 093128400 Problem Anxiety F41.9 Active 37666674 Problem Epigastric abdominal pain R10.13 Active 26620258 Problem COPD exacerbation J44.1 Active 645068281 Problem Chronic obstructive pulmonary disease, unspecified COPD type J44.9 Active 57352312 Problem Gynecologic exam normal Z01.419 Active 029425172 Problem Hyperlipidemia LDL goal <130 E78.5 Active 60400820 ALLERGIES No Information SOCIAL HISTORY Never Assessed PLAN OF CARE VITAL SIGNS MEDICATIONS Unknown Medications RESULTS No Results PROCEDURES No Known procedures IMMUNIZATIONS No Known Immunizations MEDICAL (GENERAL) HISTORY [...]
--- OUTSIDE RECORDS SUMMARY | 2018-03-14 15:16 | XMS REPORT ---
Author STACIA Garcia [facility] eClinicalWorks Address Unknown Phone Unavailable Care Team Providers Care Alteration Specialist Name Role Phone STACIA HAQ CP Unavailable Allergies, Adverse Reactions, Alerts Substance Reaction Event Type N.K.D.A. Info Not Available Non Drug Allergy Problems Problem Type Condition Code Onset Dates Condition Status Problem Screening breast examination Z12.39 Active Problem Cyst of right breast N60.01 Active Problem Chronic obstructive pulmonary disease, unspecified COPD type J44.9 Active Assessment Chronic obstructive pulmonary disease, unspecified COPD type J44.9 Active Problem Allergic rhinitis due to pollen 477.0 Active Problem Personal history of tobacco use, presenting hazards to health V15.82 Active Medications Medication Code System Code Instructions Start Date End Date Status Dosage Advair Diskus [facility] [address]-48 250-50 MCG/DOSE Inhalation Twice a day Jan 13, 2014 1 puffs by Inhalation route 2 times per day Rinse mouth with water and spit after use Spiriva HandiHaler [facility] [address]-33 18 MCG Inhalation Once a day June 12, 2014 1 capsule Montelukast Sodium [facility] [address]-17 10 MG Orally Once a day 1 tablet in the evening Lorazepam [facility] [address]-28 2 MG Orally 3 times a day prn 1 tablet as needed ProAir HFA [facility] 95008396743 108 (90 Base) MCG/ACT inhale 2 puffs by Inhalation route every 4 hours as needed PRN shortness of breath/cough Fish Oil [facility] [address]-42 1000 MG Orally Once a day 1 capsule Albuterol Sulfate [facility] 62006317754 (2.5 MG/3ML) 0.083% 1 Each by Inhalation route every 4 hours for cough and wheeze for 7 days for wheezing or cough Calcium Citrate [facility] 73360-01941 250 mg calcium Nov 01, 2013 1 tablet by Oral route 1 time per day Naproxen [facility] [address]-75 250 mg Nov 01, 2013 1 tablet by Oral route 2 times per day PRN pain Brintellix [facility] [address]-53 5 MG Orally Once a day Oct 01, 2014 1 tablet Cetirizine HCl [facility] 33324499049 10 MG TAKE 1 TABLET BY MOUTH ONCE DAILY NEEDED Procedures Procedure Coding System Code Date CHEST X-RAY CPT-4 30313 Oct 12, 2015 Office Visit, Est Pt., Level 3 CPT-4 45607 Oct 12, 2015 MEASURE BLOOD OXYGEN LEVEL CPT-4 98305 Oct 12, 2015 Vital Signs Date/Time: Oct 12, 2015 Cardiac Monitoring Heart Rate 105 bpm Weight 139.0 lbs Height 65 in BMI 23.13 Index Oximetry 99 % Blood Pressure Diastolic 60 mmHg Blood Pressure Systolic 102 mmHg Results No Known Results Summary Purpose eClinicalWorks Submission
--- OUTSIDE RECORDS SUMMARY | 2018-03-14 15:16 | XMS REPORT ---
Author Author JANEL RIVAS [facility] eClinicalWorks Address Unknown Phone Unavailable Care Team Providers Care Silk Screen Operator Name Role Phone JANEL RIVAS CP [...] Instructions Start Date End Date Status Dosage Cetirizine HCl [facility] [address]-03 10 MG Orally Once a day June 27, 2014 1 tablet as needed Naproxen [facility] [address]-43 250 mg Nov 01, 2013 1 tablet by Oral route 2 times per day PRN pain Lorazepam [facility] [address]-04 2 MG Orally 3 times a day prn 1 tablet as needed Spiriva HandiHaler [facility] [address]-87 18 MCG Inhalation Once a day June 12, 2014 1 capsule Brintellix [facility] [address]-07 5 MG Orally Once a day Oct 01, 2014 1 tablet Calcium Citrate [facility] 76[address]23 250 mg calcium Nov 01, 2013 1 tablet by Oral route 1 time per day Flonase [facility] [address]-33 50 mcg/actuation Nov 01, 2013 2 sprays by Nasal route 1 time per day Advair Diskus [facility] [address]-72 250-50 MCG/DOSE Inhalation Twice a day Jan 13, 2014 1 puffs by Inhalation route 2 times per day Rinse mouth with water and spit after use Albuterol Sulfate [facility] 80700594159 (2.5 MG/3ML) 0.083% 1 Each by Inhalation route every 4 hours for cough and wheeze for 7 days for wheezing or cough ProAir HFA [facility] [address]-76 90 mcg/actuation Inhalation 4-6 hours as needed dyspnea Feb 06, 2014 inhale 2 puffs by Inhalation route every 4 hours as needed PRN shortness of breath/cough Procedures Procedure Coding System Code Date Office Visit, New Pt., Level 5 CPT-4 68387 Oct 01, 2014 Vital Signs Date/Time: Oct 01, 2014 Temperature 98.0 F Weight 132.7 lbs Height 65 in BMI 22.08 Index Blood Pressure Diastolic 80 mmHg Blood Pressure Systolic 120 mmHg Cardiac Monitoring Heart Rate 64 bpm Results No Known Results Summary Purpose eClinicalWorks Submission
--- OUTSIDE RECORDS SUMMARY | 2018-03-14 15:16 | XMS REPORT ---
Author Author YOLA ELLIS Organization eClinicalWorks Address Unknown Phone Unavailable Care Team Providers Care Sizing Machine And Drier Operator Name Role Phone YOLA ELLIS CP [...] Date End Date Status Dosage Advair Diskus [facility] [address]-11 250-50 MCG/DOSE Inhalation Twice a day Jan 13, 2014 1 puffs by Inhalation route 2 times per day Rinse mouth with water and spit after use Results No Known Results Summary Purpose eClinicalWorks Submission
--- OUTSIDE RECORDS SUMMARY | 2018-03-14 15:16 | XMS REPORT ---
Author Author YOLA ELLIS Organization eClinicalWorks Address Unknown Phone Unavailable Care Team Providers Care Instructor Product Inspection Name Role Phone YOLA ELLIS CP Unavailable [...]
--- OUTSIDE RECORDS SUMMARY | 2018-03-14 15:16 | XMS REPORT ---
Author Author YOLA ELLIS Organization [facility] Address [address] [place] [address] Care Team Providers Care Cherry Cutter Name Role Phone YOLA ELLIS Unavailable PROBLEMS Type Condition ICD9-CM Code [id number] Code Onset Dates Condition Status SNOMED Code Problem Cyst of right breast N60.01 Active 961388024 Problem Screening breast examination Z12.39 Active 502690823 Problem Anxiety F41.9 Active 10260150 Problem Epigastric abdominal pain R10.13 Active 16443681 Problem COPD exacerbation J44.1 Active 791155785 Problem Chronic obstructive pulmonary disease, unspecified COPD type J44.9 Active 69529254 Problem Gynecologic exam normal Z01.419 Active 277871910 Problem Hyperlipidemia LDL goal <130 E78.5 Active 94438908 ALLERGIES No Information SOCIAL HISTORY Never Assessed PLAN OF CARE VITAL SIGNS MEDICATIONS Medication Instructions Dosage Frequency Start Date End Date Duration Status Brintellix 5 mg Orally Once a day 1 tablet 24h Sep, Active RESULTS No Results PROCEDURES No Known [...]
--- OUTSIDE RECORDS SUMMARY | 2018-03-14 15:16 | XMS REPORT ---
Author Author YOLA ELLIS [facility] eClinicalWorks Address Unknown Phone Unavailable Care Team Providers Care Unit Control Clerk Name Role Phone OYLA ELLIS CP Unavailable Allergies, Adverse Reactions, Alerts Substance Reaction Event Type N.K.D.A. Info Not Available Non Drug Allergy Problems Problem Type Condition Code Onset Dates Condition Status Problem Cyst of right breast N60.01 Active Problem Allergic rhinitis due to pollen 477.0 Active Problem Screening breast examination Z12.39 Active Assessment Cyst of right breast N60.01 Active Problem Personal history of tobacco use, presenting hazards to health V15.82 Active Assessment Screening breast examination Z12.39 Active Medications Medication Code System Code Instructions Start Date End Date Status Dosage Brintellix [facility] [address]-22 5 MG Orally Once a day Oct 01, 2014 [address] Oil [facility] [address]-91 1000 MG Orally Once a day [address] [facility] [address]-84 2 MG Orally 3 times a day prn 1 tablet as needed Cetirizine HCl [facility] 50284031706 10 MG TAKE 1 TABLET BY MOUTH ONCE DAILY NEEDED Naproxen [facility] [address]-33 250 mg Nov 01, 2013 1 tablet by Oral route 2 times per day PRN pain Montelukast Sodium [facility] [address]-07 10 MG Orally Once a day 1 tablet in the evening Advair Diskus [facility] [address]-31 250-50 MCG/DOSE Inhalation Twice a day Jan 13, 2014 1 puffs by Inhalation route 2 times per day Rinse mouth with water and spit after use Albuterol Sulfate [facility] 47679833040 (2.5 MG/3ML) 0.083% 1 Each by Inhalation route every 4 hours for cough and wheeze for 7 days for wheezing or cough Spiriva HandiHaler [facility] [address]-07 18 MCG Inhalation Once a day June 12, 2014 1 capsule Flonase [place] 0 50 mcg/actuation Nov 01, 2013 2 sprays by Nasal route 1 time per day ProAir HFA [facility] [address]-10 90 mcg/actuation Inhalation 4-6 hours as needed dyspnea Feb 06, 2014 inhale 2 puffs by Inhalation route every 4 hours as needed PRN shortness of breath/cough Calcium Citrate [facility] [address]65[address]34 250 mg calcium Nov 01, 2013 1 tablet by Oral route 1 time per day Procedures Procedure Coding System Code Date Office Visit, Est Pt., Level 3 CPT-4 46395 May 30, 2015 Vital Signs Date/Time: May 30, 2015 Temperature 98.2 F Weight 136.5 lbs Height 65 in BMI 22.71 Index Blood Pressure Diastolic 70 mmHg Blood Pressure Systolic 118 mmHg Cardiac Monitoring Heart Rate 72 bpm Results No Known Results Summary Purpose eClinicalWorks Submission
--- OUTSIDE RECORDS SUMMARY | 2018-03-14 15:17 | XMS REPORT ---
Author Author NELY SHIELDS [facility] eClinicalWorks Address Unknown Phone Unavailable Care Team Providers Care Golf Club Weighter Name Role Phone NELY SHIELDS CP Unavailable Allergies, Adverse Reactions, Alerts Substance [...] Instructions Start Date End Date Status Dosage Spiriva HandiHaler [facility] [address]-24 18 MCG Inhalation Once a day June 12, 2014 1 capsule ProAir HFA [facility] [address]-41 90 mcg/actuation Inhalation 4-6 hours as needed dyspnea Feb 06, 2014 inhale 2 puffs by Inhalation route every 4 hours as needed PRN shortness of breath/cough Flonase [facility] 0 50 mcg/actuation Nov 01, 2013 2 sprays by Nasal route 1 time per day Cetirizine HCl [facility] 12503866724 10 MG Orally Once a day 1 tablet as needed Lorazepam [facility] [address]-12 2 MG Orally 3 times a day prn 1 tablet as needed Albuterol Sulfate [facility] 54057913022 (2.5 MG/3ML) 0.083% 1 Each by Inhalation route every 4 hours for cough and wheeze for 7 days for wheezing or cough Calcium Citrate [facility] 78668-00035 250 mg calcium Nov 01, 2013 1 tablet by Oral route 1 time per day Naproxen [facility] [address]-55 250 mg Nov 01, 2013 1 tablet by Oral route 2 times per day PRN pain Fish Oil [facility] [address]-47 1000 MG Orally Once a day 1 capsule Advair Diskus [facility] [address]-39 250-50 MCG/DOSE Inhalation Twice a day Jan 13, 2014 1 puffs by Inhalation route 2 times per day Rinse mouth with water and spit after use Brintellix [facility] [address]-67 5 MG Orally Once a day Oct 01, 2014 1 tablet Procedures Procedure Coding System Code Date Office Visit, Est Pt., Level 4 CPT-4 01902 May 06, 2015 DRUG SCREEN NON TLC DEVICES CPT-4 71368 May 06, 2015 Vital Signs Date/Time: May 06, 2015 Temperature 97.9 F Weight 133.9 lbs Height 65 in BMI 22.28 Index Blood Pressure Diastolic 88 mmHg Blood Pressure Systolic 120 mmHg Cardiac Monitoring Heart Rate 68 bpm Results Name Result Date Reference Range Unit Abnormality Flag URINE DRUG SCREEN (IN HOUSE) ----MDMA neg [id number] ----TCA neg [id number] ----BENZO POSITIVE [id number] ----OPIATE neg [id number] ----THC POSITIVE [id number] ----MTD neg [id number] ----AMPH neg [id number] ----BAR neg [id number] ----PCP neg [id number] ----MAMP neg [id number] ----OXY neg [id number] ----Lot # [id number] ----Exp date [id number] ----Control + [id number] ----COCAINE neg [id number] Summary Purpose eClinicalWorks Submission
--- OUTSIDE RECORDS SUMMARY | 2018-03-14 15:17 | XMS REPORT ---
Author Author YOLA ELLIS Organization eClinicalWorks Address Unknown Phone Unavailable Care Team Providers Care Coal Trimmer Name Role Phone YOLA ELLIS CP Unavailable [...]
--- OUTSIDE RECORDS SUMMARY | 2018-03-14 15:17 | XMS REPORT ---
Author Author [facility]L GARLAND [facility] Address Unknown Phone Unavailable Care Team Providers Care Industrial Sweeper Cleaner Name Role Phone KARL GARLAND Unavailable Unavailable PROBLEMS Type Condition ICD9-CM Code CLY26-KT Code Onset Dates Condition Status SNOMED Code Problem Cyst of right breast N60.01 Active 807612528 Problem Chronic obstructive pulmonary disease, unspecified COPD type J44.9 Active 92880660 Problem Screening breast examination Z12.39 Active 015054954 Problem Gastric reflux K21.9 Active 297615720 Problem Anxiety F41.9 Active 85114373 Problem Hyperlipidemia LDL goal <130 E78.5 Active 13702122 Problem COPD exacerbation J44.1 Active 096904722 Problem Epigastric abdominal pain R10.13 Active 37855736 Problem Gynecologic exam normal Z01.419 Active 587165217 ALLERGIES No Information ENCOUNTERS Encounter Location Date Diagnosis [facility] [address] [id number] [id number] Apr, [facility] [address] [id number][place] [id number] Apr, Anxiety F41.9 and COPD exacerbation J44.1 [facility] [address] [address] [id number][place] [address] Apr, [facility] [address] [id number][place] [id number] Mar, Chronic obstructive pulmonary disease, unspecified COPD type J44.9 ; Anxiety F41.9 and Gastric reflux K21.9 [facility] [address] [id number], [place] [address] Dec, [facility] [address] [id number][place] [id number] Oct, COPD exacerbation J44.1 [facility] [address] [id number], [place] [address] Aug, [facility] [address] [id number] [place] [id number] Aug, [facility] [address] [id number][place] [address] Aug, COPD exacerbation J44.1 and Anxiety F41.[address] [facility] [address] [id number], [place] [id number] Jul, [facility] [address] [facility] [id number] [place] [address] Jul, [facility] [address] [id number], [place] [id number] Jul, [facility] [address] [id number], [place] [address] June, Gynecologic exam normal Z01.419 ; Cyst of right breast N60.01 ; Hyperlipidemia LDL goal <130 E78.5 and Epigastric abdominal pain R10.[address] [facility] [address] [id number][place] [id number] Apr, [facility] [id number], [place] [id number] Mar, COPD exacerbation J44.1 and Influenza J11.[address] [facility] [address] [id number], [place] [id number] Feb, [facility] [address] [id number], [place] [id number] Feb, Chronic obstructive pulmonary disease, unspecified COPD type J44.[address] [facility] [address] [id number] [place] [address] Oct, Chronic obstructive pulmonary disease, unspecified COPD type J44.[address] [facility] [address] [id number], [place] [id number] Sep, Bronchitis J[address] [facility] [address] [id number], [place] [id number] Sep, [facility] [id number], [place] [address] May, Screening breast examination Z12.39 and Cyst of right breast N60.01 [facility] [id number], [place] [address] May, [address] [id number], [place] [address] May, H/O abnormal mammogram Z87.898 [facility] [address]65100[place], [place] [address] May, [address] [id number], [place] [id number] Apr, [facility] [address] [place] [address] Apr, Generalized anxiety disorder F41.1 [facility] [address] [place] [address] Mar, [facility] [address] [place] [address] Feb, [facility] [address] [place] [address] Feb, Hyperlipidemia E78.[address] [id number], [place] [address] Feb, Thyroid lesion E07.[address] [id number], [place] [address] Feb, Thyroid lesion E07.89 [facility] [address]65100[place], [place] [address] Feb, [address] [id number], [place] [address] Feb, COPD exacerbation J44.1 and Shortness of breath R06.02 [facility] [id number][place] [id number] Jan, [facility] [address] [id number], [place] [id number] Jan, [facility] [address] [facility] [id number], [place] [address] Dec, [facility] [address] [id number], [place] [address] Dec, [facility] [address] [id number], [place] [address] Nov, Generalized anxiety disorder F41.1 and Depression F32.9 [facility] [place] [address] [id number], [place] [address] Oct, Panic disorder with agoraphobia and moderate panic attacks 300.21 [facility] [address] [id number], [place] [address] Sep, [facility] [address] [facility] [id number], [place] [address] Sep, Panic disorder with agoraphobia and moderate panic attacks 300.21 [facility] [address] [id number], [place] [address] Sep, [facility] [address] [id number], [place] 2005[address] Sep, COPD (chronic obstructive pulmonary disease) 496 and Anxiety 300.00 [facility] [address] [id number], [place] [address] June, [facility] [address] [id number], [place] [address] June, [facility] [address] [id number], [place] [id number] June, [facility] [address] [id number], [place] [id number] June, [facility] [address] [id number], [place] [address] June, [facility] [address] [id number], [place] [address] June, COPD (chronic obstructive pulmonary disease) 496 ; Weight gain 783.1 ; Tobacco abuse 305.1 and Tobacco abuse counseling V65.[address] [facility] [address] [id number] [place] [address] June, [facility] [address] [id number], [place] [address] May, [facility] [address] [id number], [place] 337[address] May, [facility] [place] [facility] [address]00565100[place], [place] [address] May, [facility] [place] [facility] [address]00565100[place], [place] [address] May, [facility] [place] [facility] [address]00565100[place], [place] [address] Apr, [facility] [place] [facility] [address] [id number], [place] [address] Apr, [facility] [id number], [place] [id number] Feb, [facility] [place] [facility] [address]00565100[place], [place] [address] Feb, [facility] [address] [id number], [place] [address] Feb, [facility] [place] [facility] [address] [id number], [place] [address] Feb, [facility] [address] [id number][place] [address] Feb, [facility] [place] [facility] [address] [id number], [place] [address] Feb, [facility] [place] [facility] [address] [id number], [place] [address] Feb, [facility] [place] [facility] [address] [address] Feb, [facility] [address] [facility] [id number] [place] [id number] Jan, [facility] [place] [facility] [address] [facility] [id number] [place] [address]- [address] Jan, [facility] [address] [facility] [id number] [place] [id number] Jan, [facility] [place] [facility] [address] [id number] [place] [address] Jan, [facility] [place] [facility] [address] [id number] [place] [address] Jan, [facility] [place] [facility] [address] [id number] [place] [address] Jan, [facility] [place] [facility] [address] [id number] [address] Jan, [facility] [place] [facility] [address] [id number] [place] [address]- [address] Jan, [facility] [place] [facility] [address] [id number] [place]- [address] Jan, [facility] [place] [facility] [address] [facility] [id number] [place]- [address] Jan, [facility] [place] [facility] [address] [id number], [place] [address]- [address] Jan, [facility] [place] [facility] [address] [id number], [place] [address]- [address] Jan, [facility] [place] [facility] [address] [id number] [place] [address]- [address] Dec, [facility] [place] [facility] [address] [id number] [place] [address]- [address]771 Dec, [facility] [place] [facility] [address] [facility] [id number] [place] [address]- [address] Dec, [facility] [place] [facility] [address] [id number] [place] [address]- [address] Dec, [facility] [place] [facility] [address] [id number] [place] [address]- 4[address] Dec, [facility] [place] [facility] [address] [id number] [place] [address]- 7965 Dec, [facility] [place] [facility] [address] [id number] [place] [address]- 1983 Dec, [facility] [place] [facility] [address] [id number] [place] [address]- [address] Dec, [facility] [place] [facility] [address] [id number] [place] [address]- 0047 Dec, [facility] [place] [facility] [address] [id number] [place] [address]- 4368 Dec, [facility] [place] [facility] [address] [id number] [place] [address]- 2613 Dec, [facility] [place] [facility] [address] [id number] [place] [address]- 6037 Dec, [facility] [place] [facility] [address] [id number] [place] [address]- 3582 Nov, [facility] [place] [facility] [address] [id number] [place] [address]- 6641 Nov, [facility] [place] [facility] [address] [id number] [place] [address]- 1164 Nov, [facility] [place] [facility] [address] [id number] [place] [address]- 8958 Nov, [facility] [place] [facility] [address] [id number] [place] [address]- 4721 Nov, [facility] [place] [facility] [address] [id number] [place] [address]- 9929 Nov, [facility] [place] [facility] [address] [id number] [place] [address]- 4060 Oct, [facility] [place] [facility] [address] [id number] [place] [address]- 4872 Oct, [facility] [place] [facility] [address] [id number] [place] [address]- 0767 Oct, [facility] [place] [facility] [address] [id number] [place] [address]- 2415 Oct, [facility] [place] [facility] [address] [id number] [place] [address]- 2556 Sep, [facility] [place] [facility] [address] [id number] [place] [address]- 9810 Sep, [facility] [place] [facility] [address] [id number] [place] [address]- [address] June, [facility] [place] [facility] [address] [id number] [place] [address]- 9395 May, [facility] [place] [facility] [address] [id number] [place] [address]- 6804 May, [facility] [place] [facility] [address] [id number] [place] [address]- 9177 May, [facility] [place] [facility] [address] [facility] [id number], [place] [address]- [address] May, [facility] [address] [id number][place] [address] May, [facility] [place] [facility] [address] [id number], [place] [address]- [address] May, [facility] [address] [facility] [id number][place] [address] Nov, [facility] [place] [facility] [address] [id number] [place] [address]- 3530 Nov, [facility] [place] [facility] [address] [id number] [place] [address]- 6[address] Nov, [facility] [place] [facility] [address] [id number], [place] [address]- [address] Nov, [facility] [address] [id number], [place] [address] Nov, [facility] [id number], [place] [address] Nov, [facility] [address] [id number], [place] [address] Nov, [facility] [address]00565100[place], [place] [address] 2546 Nov, [facility] [address]00565100[place], [place] [address]- [address] Nov, [facility] [address]00565100[place], [place] [address]- [address] Oct, [facility] [address]65100[place], [place] [address]- [address]36 Oct, [facility] [address] [id number][place] [address] Sep, [facility] [address]00565100[place], [place] [address] Sep, [facility] [address]65100[place], [place] [address]- [address] Sep, IMMUNIZATIONS No Known Immunizations SOCIAL HISTORY Never Assessed REASON FOR VISIT courtesy contact PLAN OF CARE Activity Details Follow Up Will use services. Reason:Schedule with Dr. Copeladn VITAL SIGNS MEDICATIONS Unknown Medications RESULTS No [...] Medical History 03-20-15 PFT mild obstructive defect Surgical History breast biopsy 1986 Surgical History partial hysterectomy-fibroids 1995 Surgical History arthroscopic knee surgery 1987 Surgical History laparoscopy 1983 Surgical History cholecystectomy Surgical History bladder prolapse repair 01/2015 Hospitalization History resp issues 03/25 Hospitalization History resp issues 12/23 Hospitalization History panic attacks/ resp problems 07/23 Hospitalization History bladder prolapse 02/05/15
--- OUTSIDE RECORDS SUMMARY | 2018-03-14 15:17 | XMS REPORT ---
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 [address]-36 20 MG Orally Once a day Sep 25, 2014 1 tablet Lorazepam [facility] [address]-85 2 MG Orally 3 times a day prn not defined Cetirizine HCl [facility] [address]-69 10 MG Orally Once a day June 27, 2014 1 tablet as needed Advair Diskus [facility] [address]-94 250-50 MCG/DOSE Inhalation Twice a day Jan 13, 2014 1 puffs by Inhalation route 2 times per day Rinse mouth with water and spit after use Flonase [facility] [address]-02 50 mcg/actuation Nov 01, 2013 2 sprays by Nasal route 1 time per day ProAir HFA [facility] [address]-46 90 mcg/actuation Inhalation 4-6 hours as needed dyspnea Feb 06, 2014 inhale 2 puffs by Inhalation route every 4 hours as needed PRN shortness of breath/cough Spiriva HandiHaler [facility] [address]-28 18 MCG Inhalation Once a day June 12, 2014 1 capsule Vistaril [facility] [address]-21 25 MG Orally every 8 hrs Sep 25, 2014 1 capsule as needed Albuterol Sulfate [facility] [address]-99 2.5 mg /3 mL (0.083 %) Dec 12, 2013 1 Each by Inhalation route every 4 hours for cough and wheeze for 7 days for wheezing or cough Naproxen [facility] [address]-16 250 mg Nov 01, 2013 1 tablet by Oral route 2 times per day PRN pain Calcium Citrate [facility] [address]19 250 mg calcium Nov 01, 2013 1 tablet by Oral route 1 time per day Procedures Procedure Coding System Code Date Office Visit, Est Pt., Level 4 CPT-4 17278 Sep 25, 2014 Vital Signs Date/Time: Sep 25, 2014 Temperature 98.1 F Weight 132.5 lbs Height 65 in BMI 22.05 Index Blood Pressure Diastolic 74 mmHg Blood Pressure Systolic 118 mmHg Cardiac Monitoring Heart Rate 74 bpm Results No Known Results Summary Purpose eClinicalWorks Submission
--- OUTSIDE RECORDS SUMMARY | 2018-03-14 15:17 | XMS REPORT ---
Author Author [facility] Address [address] [place] [address] Care Team Providers Care Resident Advisor Name Role Phone RHONDA YOLA Unavailable PROBLEMS Type Condition ICD9-CM Code BQE11-ER Code Onset Dates Condition Status SNOMED Code Problem Cyst of right breast N60.01 Active 128721594 Problem Screening breast examination Z12.39 Active 277767995 Problem Anxiety F41.9 Active 42063782 Problem Epigastric abdominal pain R10.13 Active 12199145 Problem COPD exacerbation J44.1 Active 731483941 Problem Chronic obstructive pulmonary disease, unspecified COPD type J44.9 Active 19645580 Problem Gynecologic exam normal Z01.419 Active 249368852 Problem Hyperlipidemia LDL goal <130 E78.5 Active 06298999 ALLERGIES Unknown Allergies SOCIAL HISTORY No smoking Hx information available PLAN OF CARE VITAL SIGNS MEDICATIONS Unknown Medications RESULTS No Results PROCEDURES No Known procedures IMMUNIZATIONS No Known Immunizations
--- OUTSIDE RECORDS SUMMARY | 2018-03-14 15:18 | XMS REPORT ---
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 Name Role Phone STACIA HAQ Unavailable PROBLEMS Type Condition ICD9-CM Code XXM45-PO Code Onset Dates Condition Status SNOMED Code Problem Cyst of right breast N60.01 Active 405653015 Problem Chronic obstructive pulmonary disease, unspecified COPD type J44.9 Active 33972710 Problem Screening breast examination Z12.39 Active 352686347 Problem Gastric reflux K21.9 Active 036533119 Problem Anxiety F41.9 Active 10474912 Problem Hyperlipidemia LDL goal <130 E78.5 Active 03011020 Problem COPD exacerbation J44.1 Active 201566813 Problem Epigastric abdominal pain R10.13 Active 97223910 Problem Gynecologic exam normal Z01.419 Active 170014045 ALLERGIES No Known Allergies ENCOUNTERS Encounter Location Date Diagnosis [facility] [address] [id number] [id number] Apr, [facility] [address] [id number] [id number] Apr, Anxiety F41.9 and COPD exacerbation J44.1 [facility] [address] [id number] [id number] Apr, [facility] [address] [id number] [id number] Mar, Chronic obstructive pulmonary disease, unspecified COPD type J44.9 ; Anxiety F41.9 and Gastric reflux K21.9 [facility] [address] [facility] [id number] [place] [address] Dec, [facility] [address] [id number] [address] Oct, COPD exacerbation J44.1 [facility] [address] [facility] [id number] [place] [address] Aug, [facility] [address] [id number] [id number] Aug, [facility] [address] [id number] [id number] Aug, COPD exacerbation J44.1 and Anxiety F41.[address] [facility] [address] [id number] [address] Jul, [facility] [address] [facility] [id number] [address] Jul, [facility] [address] [id number] [address] Jul, [facility] [address] [id number], [place] [address] June, Gynecologic exam normal Z01.419 ; Cyst of right breast N60.01 ; Hyperlipidemia LDL goal <130 E78.5 and Epigastric abdominal pain R10.[address] [facility] [address] [id number] [id number] Apr, [facility] [address] [id number] [id number] Mar, COPD exacerbation J44.1 and Influenza J11.[address] [facility] [address] [id number], [place] [id number] Feb, [facility] [address] [id number], [place] [address]957658[address] Feb, Chronic obstructive pulmonary disease, unspecified COPD type J44.[address] [facility] [address] [id number], [place] [address] Oct, Chronic obstructive pulmonary disease, unspecified COPD type J44.[address] [facility] [address] [id number] [address] Sep, Bronchitis J40 [facility] [address] [facility] [address] [id number][place] [address] Sep, [facility] [id number], [place] [id number] May, Screening breast examination Z12.39 and Cyst of right breast N60.01 [facility] [id number], [place] [address] May, [address] [id number] [address] May, H/O abnormal mammogram Z87.898 [facility] [id number] [place] [id number] May, [facility] [id number], [place] [id number] Apr, [facility] [id number] [place] [address] Apr, Generalized anxiety disorder F41.1 [facility] [id number] [place] [address] Mar, [facility] [address] [place] [address] Feb, [facility] [id number] [place] [address] Feb, Hyperlipidemia E78.[address] [id number], [place] 6[address]661588 Feb, Thyroid lesion E07.89 [facility] [address] [facility] [address] [id number] [address] Feb, Thyroid lesion E07.89 [facility] [address] [address] Feb, [facility] [address] [facility] [address] [id number] [id number] Feb, COPD exacerbation J44.1 and Shortness of breath R06.02 [facility] [address] [facility] [id number], [place] [id number] Jan, [facility] [id number] [address] Jan, [facility] [address] [facility] [id number] [place] [address] Dec, [facility] [id number], [place] [address] Dec, [facility] [address] [facility] [id number] [place] [address] Nov, Generalized anxiety disorder F41.1 and Depression F32.9 [facility] [address] [id number] [address] Oct, Panic disorder with agoraphobia and moderate panic attacks 300.21 [facility] [id number], [place] [address]057067 Sep, [facility] [address] [facility] [id number] [place] [address] Sep, Panic disorder with agoraphobia and moderate panic attacks 300.21 [facility] [address] [id number], [place] 54044[address]99 Sep, [facility] [address] [id number], [place] [address] Sep, COPD (chronic obstructive pulmonary disease) 496 and Anxiety 300.00 [facility] [address] [id number], [place] [address]118[address] June, [facility] [address] [id number], [place] [id number] June, [facility] [address] [id number], [place] [id number] June, [facility] [address] [id number], [place] [id number] June, [facility] [address] [id number] [place] [address] June, [facility] [address] [id number], [place] 048922532 June, COPD (chronic obstructive pulmonary disease) 496 ; Weight gain 783.1 ; Tobacco abuse 305.1 and Tobacco abuse counseling V65.[address] [facility] [address] [id number], [place] [id number] June, [facility] [address] [id number], [place] 900532113 May, [facility] [address] [id number], [place] 033459986 May, [facility] [place] [facility] [address]65[address] [address] May, [facility] [place] [facility] [address]65100[place] [address] May, [facility] [place] [facility] [address]65[address] [address] Apr, [facility] [place] [facility] [address] [address] Apr, [facility] [address] [id number] [address] Feb, [facility] [place] [facility] [address]65100[place] [address] Feb, [facility] [id number], [place] [address]57 Feb, [facility] [place] [facility] [address] [id number] [address] Feb, [facility] [id number], [place] [address]4415 Feb, [facility] [place] [facility] [address]65100[place] [address]- [address] Feb, [facility] [place] [facility] [address] [id number] [place] [address] Feb, [facility] [address] [id number] [place] [address] Feb, [facility] [address] [id number] [place] [address] Jan, [facility] [place] [facility] [address] [id number] [place] [address]- [address] Jan, [facility] [address] [id number], [place] 113[address]1384 Jan, [facility] [place] [facility] [address] [id number] [place] [address] Jan, [facility] [place] [facility] [address] [id number] [place]- [address] Jan, [facility] [place] [facility] [address] [id number] [place] [address]- 2798 Jan, [facility] [place] [facility] [address] [id number] [place] [address]- 4196 Jan, [facility] [place] [facility] [address] [id number] [place]- [address] Jan, [facility] [place] [facility] [address] [id number] [place]- [address] Jan, [facility] [place] [facility] [address] [id number] [place] [address]- [address]300 Jan, [facility] [place] [facility] [address] [id number] [place] [address]- [address] Jan, [facility] [place] [facility] [address] [id number] [place] [address]- 8679 Jan, [facility] [place] [facility] [address] [id number] [place] [address]- 0927 Dec, [facility] [place] [facility] [address] [id number] [place] [address]- 5661 Dec, [facility] [place] [facility] [address] [id number] [place] [address]- 9209 Dec, [facility] [place] [facility] [address] [id number] [place] [address]- 6701 Dec, [facility] [place] [facility] [address] [id number] [place] [address]- 4180 Dec, [facility] [place] [facility] [address] [id number] [place] [address]- 39[address] Dec, [facility] [place] [facility] [address] [id number] [place] [address]- 6123 Dec, [facility] [place] [facility] [address] [id number] [place] [address]- 6525 Dec, [facility] [place] [facility] [address] [id number] [place] [address]- 8259 Dec, [facility] [place] [facility] [address] [id number] [place] [address]- 6709 Dec, [facility] [place] [facility] [address] [id number] [place] [address]- 7010 Dec, [facility] [place] [facility] [address] [id number] [place] [address]- 9854 Dec, [facility] [place] [facility] [address] [id number] [place] [address]- 9615 Nov, [facility] [place] [facility] [address] [id number] [place] [address]- 1987 Nov, [facility] [place] [facility] [address] [id number] [place] [address]- 6768 Nov, [facility] [place] [facility] [address] [id number] [place] [address]- 7966 Nov, [facility] [place] [facility] [address] [id number] [place] [address]- 3450 Nov, [facility] [place] [facility] [address] [id number] [place] [address]- 9243 Nov, [facility] [place] [facility] [address] [id number] [place] [address]- 3637 Oct, [facility] [place] [facility] [address] [id number] [place] [address]- 1768 Oct, [facility] [place] [facility] [address] [id number] [place] [address]- 2703 Oct, [facility] [place] [facility] [address] [id number] [place] [address]- 6008 Oct, [facility] [place] [facility] [address] [id number] [place] [address]- 1228 Sep, [facility] [place] [facility] [address] [id number] [place] [address]- 6449 Sep, [facility] [place] [facility] [address] [id number] [place] [address]- 7948 June, [facility] [place] [facility] [address] [id number] [place] [address]- 8645 May, [facility] [place] [facility] [address] [id number] [place] [address]- 6669 May, [facility] [place] [facility] [address] [facility] [id number] [place] [address]- [address] May, [facility] [place] [facility] [address] [id number] [place] [address]- 7329 May, [facility] [address] [facility] [id number], [place] [id number] May, [facility] [place] [facility] [address] [id number] [place] [address]- 9595 May, [facility] [address] [facility] [id number], [place] 612550205 Nov, [facility] [place] [facility] [address] [id number] [place] [address]- 7435 Nov, [facility] [place] [facility] [address] [id number] [place] [address]- 28[address] Nov, [facility] [address] [address]- [address] Nov, [facility] [address] [address]- [address]46 Nov, [facility] [address] [id number], [place] [address]781 Nov, [facility] [address] [address]- 2546 Nov, [facility] [address] [address]- 2546 Nov, [facility] [address] [address]- 2546 Nov, [facility] [address] [id number] [address]- 2546 Oct, [facility] [address] [address]- 2546 Oct, [facility] [address] [id number], [place] [address]779 Sep, [facility] [address] [address]- 2546 Sep, [facility] [address] [address]- 2546 Sep, IMMUNIZATIONS Vaccine Route Administration Date Status SOLUMEDROL (UP TO 125 MG) IM Intramuscular August 17, 2016 Administered SOCIAL HISTORY Never Assessed REASON FOR VISIT SOB feels like she is having a panic attackbeen going on for 2 days radha cazares PLAN OF CARE Activity Details Follow Up prn Reason: VITAL SIGNS Height 65 in 2016-08-17 Weight 142.0 lbs 2016-08-17 Temperature 97.8 degrees Fahrenheit 2016-08-17 Heart Rate 63 bpm 2016-08-17 Respiratory Rate 18 2016-08-17 Oximetry 99 % 2016-08-17 BMI 23.63 kg/m2 2016-08-17 Blood pressure systolic 118 mmHg 2016-08-17 Blood pressure diastolic 68 mmHg 2016-08-17 MEDICATIONS Medication Instructions Dosage Frequency Start Date [...] Once a day 1 capsule 24h Active Lorazepam 2 MG Orally 3 times a day prn 1 tablet as needed Active ProAir HFA 108 (90 Base) MCG/ACT Inhalation every 4 hrs 2 puffs as needed 4h Active Omeprazole 20 mg Orally Once a day 1 capsule 24h June, Active Calcium Citrate 250 mg calcium 1 tablet by Oral route 1 time per day Oct, Active Albuterol Sulfate (2.5 MG/3ML) 0.083% 1 Each by Inhalation route every 4 hours for cough and wheeze for 7 days for wheezing or cough Active Brintellix 5 mg Orally Once a day 1 tablet 24h Sep, Active Spiriva Respimat 2.5 MCG/ACT Inhalation Once a day 2 puffs 24h Aug, Active Montelukast Sodium 10 MG Take 1 Tablet (10 mg) by mouth daily at bedtime. Active Cetirizine HCl 10 MG Take 1 Tablet (10 mg) by mouth daily. Active RESULTS No Results PROCEDURES Procedure Date Ordered Result Body Site MEASURE BLOOD OXYGEN LEVEL August 17, 2016 THER/PROPH/DIAG INJ, SC/IM August 17, 2016 SOLUMEDROL (UP TO 125 MG) August 17, 2016 INSTRUCTIONS MEDICATIONS ADMINISTERED No Known Medications MEDICAL [...]
--- OUTSIDE RECORDS SUMMARY | 2018-03-14 15:18 | XMS REPORT ---
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 Info Not Available Non Drug Allergy Problems Problem Type Condition Code Onset Dates Condition Status Problem Cyst of right breast N60.01 Active Problem Allergic rhinitis due to pollen 477.0 Active Problem Screening breast examination Z12.39 Active Problem Personal history of tobacco use, presenting hazards to health V15.82 Active Assessment Bronchitis J40 Active Medications Medication Code System Code Instructions Start Date End Date Status Dosage Calcium Citrate [facility] 12063-05615 250 mg calcium Nov 01, 2013 1 tablet by Oral route 1 time per day Fish Oil [facility] [address]-30 1000 MG Orally Once a day 1 capsule ProAir HFA [facility] 46127453459 108 (90 Base) MCG/ACT inhale 2 puffs by Inhalation route every 4 hours as needed PRN shortness of breath/cough Lorazepam [facility] [address]-78 2 MG Orally 3 times a day prn 1 tablet as needed Spiriva HandiHaler [facility] [address]-07 18 MCG Inhalation Once a day June 12, 2014 1 capsule Zithromax Z-Sushant [facility] [address]-07 250 MG Orally Once a day Sep 14, 2015 Sep 19, 2015 2 tab d 1 then 1 tab qd Albuterol Sulfate [facility] 74995462692 (2.5 MG/3ML) 0.083% 1 Each by Inhalation route every 4 hours for cough and wheeze for 7 days for wheezing or cough Advair Diskus [facility] [address]-50 250-50 MCG/DOSE Inhalation Twice a day Jan 13, 2014 1 puffs by Inhalation route 2 times per day Rinse mouth with water and spit after use PredniSONE [facility] [address]-84 10 MG Orally 2 per day Sep 14, 2015 Sep 19, 2015 1 tablet with food or milk Cetirizine HCl [facility] 29427057761 10 MG TAKE 1 TABLET BY MOUTH ONCE DAILY NEEDED Montelukast Sodium [facility] [address]-16 10 MG Orally Once a day 1 tablet in the evening Brintellix [facility] [address]-99 5 MG Orally Once a day Oct 01, 2014 1 tablet Naproxen [facility] [address]-10 250 mg Nov 01, 2013 1 tablet by Oral route 2 times per day PRN pain Procedures Procedure Coding System Code Date Office Visit, Est Pt., Level 3 CPT-4 12524 Sep 14, 2015 Vital Signs Date/Time: Sep 14, 2015 Cardiac Monitoring Heart Rate 82 bpm Weight 135.2 lbs Height 65 in BMI 22.50 Index Blood Pressure Diastolic 80 mmHg Blood Pressure Systolic 128 mmHg Results No Known Results Summary Purpose eClinicalWorks Submission
--- OUTSIDE RECORDS SUMMARY | 2018-03-14 15:19 | XMS REPORT ---
Author Author [facility]A [facility]LLIS [facility] Address [address] [place] [address] Care Team Providers Care Professor Of Marketing Name Role Phone YOLA ELLIS Unavailable PROBLEMS Type Condition ICD9-CM Code LGC63-NZ Code Onset Dates Condition Status SNOMED Code Problem Cyst of right breast N60.01 Active 112428816 Problem COPD exacerbation J44.1 Active 118853017 Problem Chronic obstructive pulmonary disease, unspecified COPD type J44.9 Active 49265250 Problem Screening breast examination Z12.39 Active 708501320 Problem Dysthymia F34.1 Active 49139793 Problem Gastric reflux K21.9 Active 591689484 Problem Gynecologic exam normal Z01.419 Active 089454765 Problem Hyperlipidemia LDL goal <130 E78.5 Active 51660632 Problem Anxiety F41.9 Active 12554331 Problem Epigastric abdominal pain R10.13 Active 17023652 ALLERGIES No Information ENCOUNTERS Encounter Location Date Diagnosis [facility] [address] [id number] [place], [place] [id number] June, [facility] [address] [id number][place] [id number] June, Chronic obstructive pulmonary disease, unspecified COPD type J44.9 and Dysthymia F34.1 [facility] [address] [id number] [place] [id number] May, Pleurisy R09.1 and Gastric reflux K21.9 [facility] [address] [id number] [place] [id number] Apr, [facility] [address] [id number] [place] [id number] Apr, Anxiety F41.9 and COPD exacerbation J44.1 [facility] [address] [id number][place] [id number] Apr, [facility] [address] [id number][place] [id number] Mar, Chronic obstructive pulmonary disease, unspecified COPD type J44.9 ; Anxiety F41.9 and Gastric reflux K21.9 [facility] [address] [id number] [address] Dec, [facility] [address] [id number][place] [id number] Oct, COPD exacerbation J44.1 [facility] [address] [id number] [address] Aug, [facility] [address] [id number], [place] [id number] Aug, [facility] [address] [id number][place] [id number] Aug, COPD exacerbation J44.1 and Anxiety F41.9 [facility] [address] [id number], [place] [id number] Jul, [facility] [address] [id number] [address] Jul, [facility] [address] [id number][place] [id number] Jul, [facility] [address] [id number][place] [address] June, Gynecologic exam normal Z01.419 ; Cyst of right breast N60.01 ; Hyperlipidemia LDL goal <130 E78.5 and Epigastric abdominal pain R10.[address] [facility] [address] [id number][place] [id number] Apr, [facility] [address] [id number][place] [id number] Mar, COPD exacerbation J44.1 and Influenza J11.[address] [facility] [address] [id number], [place] [id number] Feb, [facility] [address] [id number][place] [id number] Feb, Chronic obstructive pulmonary disease, unspecified COPD type J44.9 [facility] [address] [id number], [place] [address] Oct, Chronic obstructive pulmonary disease, unspecified COPD type J44.9 [facility] [address] [id number][place] [id number] Sep, Bronchitis J40 [facility] [address] [id number], [place] [id number] Sep, [facility] [address] [id number][place] [id number] May, Screening breast examination Z12.39 and Cyst of right breast N60.01 [facility] [address] [id number], [place] [id number] May, [facility] [address] [id number], [place] [id number] May, H/O abnormal mammogram Z87.898 [facility] [address] [id number] [address] May, [facility] [address] [id number], [place] [id number] Apr, [facility] [address] [id number] [address] Apr, Generalized anxiety disorder F41.1 [facility] [address] [id number] [address] Mar, [facility] [address] [place] [address] Feb, [facility] [address] [id number] [address] Feb, Hyperlipidemia E78.5 [facility] [address] [id number], [place] [id number] Feb, Thyroid lesion E07.89 [facility] [address] [id number], [place] [id number] Feb, Thyroid lesion E07.89 [facility] [address] [id number] [address] Feb, [facility] [address] [id number], [place] [id number] Feb, COPD exacerbation J44.1 and Shortness of breath R06.02 [facility] [address]00565100[place] [address] Jan, [facility] [address] [id number], [place] [id number] Jan, [facility] [address]00565100[place] [address] Dec, [facility] [address] [id number], [place] [id number] Dec, [facility] [address]00565100[place] [address] Nov, Generalized anxiety disorder F41.1 and Depression F32.9 [facility] [address]00565100[place] [address] Oct, Panic disorder with agoraphobia and moderate panic attacks 300.21 [facility] [address] [id number], [place] [id number] Sep, [facility] [address] [facility] [id number] [place] [address] Sep, Panic disorder with agoraphobia and moderate panic attacks 300.21 [facility] [id number], [place] [id number] Sep, [facility] [address] [id number], [place] [address] Sep, COPD (chronic obstructive pulmonary disease) 496 and Anxiety 300.[address] [facility] [address] [id number] [place] [address] June, [facility] [address] [id number] [place] [address] June, [facility] [address] [id number], [place] [address] June, [facility] [address] [id number] [place] [address] June, [facility] [address] [id number], [place] [id number] June, [facility] [address] [id number], [place] [id number] June, COPD (chronic obstructive pulmonary disease) 496 ; Weight gain 783.1 ; Tobacco abuse 305.1 and Tobacco abuse counseling V65.[address] [facility] [address] [id number], [place] 1965[address] June, [facility] [address] [id number], [place] [address]97[address] May, [facility] [address] [id number], [place] [id number] May, [facility] [place] [facility] [address] [facility] [id number] [address] May, [facility] [place] [facility] [address] [facility] [id number] [place] [address] May, [facility] [place] [facility] [address] [facility] [id number] [place] [address] Apr, [facility] [place] [facility] [address] [facility] [id number] [place] [address] Apr, [facility] [address] [facility] [id number][place] [address] Feb, [facility] [place] [facility] [address] [facility] [id number] [place] [address] Feb, [facility] [address] [id number] [place] [id number] Feb, [facility] [address] [id number] [place] [address] Feb, [facility] [address] [id number] [place] [id number] Feb, [facility] [place] [facility] [address] [id number] [place] [address]- [address] Feb, [facility] [place] [facility] [address] [id number] [place] [address]- [address] Feb, [facility] [address] [id number] [place] [address]- [address] Feb, [facility] [address] [id number] [place] [id number] Jan, [facility] [address] [id number] [place] [address]- [address] Jan, [facility] [address] [id number] [place] [id number] Jan, [facility] [place] [facility] [address] [id number] [place] [address]- [address] Jan, [facility] [place] [facility] [address] [facility] [id number] [place] [address]- [address] Jan, [facility] [place] [facility] [address] [id number] [place] [address]- 99[address] Jan, [facility] [place] [facility] [address] [id number] [place] [address]- [address] Jan, [facility] [place] [facility] [address] [id number] [place] [address]- 8599 Jan, [facility] [place] [facility] [address] [id number] [place] [address]- 8196 Jan, [facility] [place] [facility] [address] [id number] [place] [address]- [address]686 Jan, [facility] [place] [facility] [address] [id number] [place] [address]- [address]267 Jan, [facility] [place] [facility] [address] [id number] [place] [address]- 2266 Jan, [facility] [place] [facility] [address] [id number] [place] [address]- 5829 Dec, [facility] [place] [facility] [address] [id number] [place] [address]- 2067 Dec, [facility] [place] [facility] [address] [id number] [place] [address]- 8[address] Dec, [facility] [place] [facility] [address] [id number] [place] [address]- 0727 Dec, [facility] [place] [facility] [address] [id number] [place] [address]- 2717 Dec, [facility] [place] [facility] [address] [id number] [place] [address]- 5658 Dec, [facility] [place] [facility] [address] [id number] [place] [address]- 1247 Dec, [facility] [place] [facility] [address] [id number] [place] [address]- 1222 Dec, [facility] [place] [facility] [address] [id number] [place] [address]- 9048 Dec, [facility] [place] [facility] [address] [id number] [place] [address]- 1703 Dec, [facility] [place] [facility] [address] [id number] [place] [address]- 77[address] Dec, [facility] [place] [facility] [address] [id number] [place] [address]- 9558 Dec, [facility] [place] [facility] [address] [id number] [place] [address]- [address]277 Nov, [facility] [place] [facility] [address] [id number] [address]- 9086 Nov, [facility] [address] [id number] [place] [address]- 0673 Nov, [facility] [address] [id number] [place] [address]- 4085 Nov, [facility] [address] [facility] [id number] [place] [address]- 6661 Nov, [facility] [address] [id number] [place] [address]- 7096 Nov, [facility] [address] [id number] [place] [address]- 6592 Oct, [facility] [address] [id number] [place] [address]- 1775 Oct, [facility] [address] [id number] [place] [address]- 9510 Oct, [facility] [address] [id number] [place] [address]- 8326 Oct, [facility] [address] [id number] [place] [address]- 6045 Sep, [facility] [address] [id number] [place] [address]- 0926 Sep, [facility] [address] [id number] [address] June, [facility] [address] [id number] [place] [address]- [address] May, [facility] [address] [id number] [place] [address]- 2513 May, [facility] [place] [facility] [address] [facility] [id number] [place] [address]- 1252 May, [facility] [address] [facility] [id number] [place] [address]- 1995 May, [facility] [address] [id number], [place] [id number] 16 May, 2012 [facility] [address] [facility] [id number] [place] [address] May, [facility] [place] [address] [id number], [place] [id number] Nov, [facility] [address]00565[address] [address] Nov, [facility] [address]00565100[place] [address] Nov, [facility] [address]00565100[place] [address] Nov, [facility] [address] [id number] [address] Nov, [facility] [address] [id number], [place] [id number] Nov, [facility] [address]00565100[place] [address] Nov, [facility] [address]00565100[place] [address]- [address] Nov, [facility] [address]00565100[place] [address]- [address]96 Nov, [facility] [address]00565100[place] [address]- [address] Oct, [facility] [address] [id number] [address]16 Oct, [facility] [place] [address] [id number], [place] [id number] Sep, [facility] [address]00565100[place] [address]- [address] Sep, [facility] [address] [id number] [address]- [address]26 Sep, IMMUNIZATIONS No Known Immunizations SOCIAL HISTORY Never Assessed REASON FOR VISIT triage [facility] VITAL SIGNS MEDICATIONS Unknown [...]
--- OUTSIDE RECORDS SUMMARY | 2018-03-14 15:19 | XMS REPORT ---
Author Author JOHNNIE ISABEL [facility] eClinicalWorks Address Unknown Phone Unavailable Care Team Providers Care Senior Lead Software Engineer Name Role Phone JOHNNIE ISABEL CP Unavailable Allergies No Known Allergies Problems [...] Start Date End Date Status Dosage Lorazepam [facility] [address]-30 2 MG Orally 3 times a day prn 1 tablet as needed Results No Known Results Summary Purpose eClinicalWorks Submission
--- OUTSIDE RECORDS SUMMARY | 2018-03-14 15:20 | XMS REPORT ---
Author Author YOLA ELLIS [facility] Address [address] [place] [address] Care Team Providers Care Ticket Printer And Tagger Name Role Phone YOLA ELLIS Unavailable PROBLEMS Type Condition ICD9-CM Code TLS21-AD Code Onset Dates Condition Status SNOMED Code Problem Cyst of right breast N60.01 Active 404297789 Problem Chronic obstructive pulmonary disease, unspecified COPD type J44.9 Active 17619604 Problem Screening breast examination Z12.39 Active 086842305 Problem Gastric reflux K21.9 Active 907497746 Problem Anxiety F41.9 Active 65597950 Problem Hyperlipidemia LDL goal <130 E78.5 Active 15426822 Problem COPD exacerbation J44.1 Active 091920248 Problem Epigastric abdominal pain R10.13 Active 50099386 Problem Gynecologic exam normal Z01.419 Active 094847856 ALLERGIES No Information ENCOUNTERS Encounter Location Date Diagnosis [facility] [id number] [place] [id number] June, [facility] [address] [id number] [id number] May, Pleurisy R09.1 and Gastric reflux K21.9 [facility] [address] [id number] [place] [id number] Apr, [facility] [address] [id number], [place] [address] Apr, Anxiety F41.9 and COPD exacerbation J44.[address] [facility] [address] [id number][place] [id number] Apr, [facility] [id number], [place] [address] Mar, Chronic obstructive pulmonary disease, unspecified COPD type J44.9 ; Anxiety F41.9 and Gastric reflux K21.9 [facility] [address] [facility] [id number], [place] [address] Dec, [facility] [address] [id number][place] [address] Oct, COPD exacerbation J44.1 [facility] [address] [facility] [id number], [place] [address] Aug, [facility] [address] [id number] [place] [id number] Aug, [facility] [address] [id number][place] [id number] Aug, COPD exacerbation J44.1 and Anxiety F41.[address] [facility] [address] [id number][place] [address] Jul, [facility] [address] [id number] [address] Jul, [facility] [address] [id number][place] [id number] Jul, [facility] [address] [id number][place] [address] June, Gynecologic exam normal Z01.419 ; Cyst of right breast N60.01 ; Hyperlipidemia LDL goal <130 E78.5 and Epigastric abdominal pain R10.[address] [facility] [address] [id number][place] [address] Apr, [facility] [address] [id number][place] [id number] Mar, COPD exacerbation J44.1 and Influenza J11.[address] [facility] [address] [id number][place] [id number] Feb, [facility] [address] [id number], [place] [address] Feb, Chronic obstructive pulmonary disease, unspecified COPD type J44.[address] [facility] [address] [id number], [place] [address] Oct, Chronic obstructive pulmonary disease, unspecified COPD type J44.9 [facility] [address] [id number], [place] [id number] Sep, Bronchitis J40 [facility] [id number][place] [address] Sep, [facility] [address] [id number][place] [address] May, Screening breast examination Z12.39 and Cyst of right breast N60.01 [facility] [address] [id number][place] [address] May, [facility] [address] [id number], [place] [id number] May, H/O abnormal mammogram Z87.898 [facility] [address]00565100[place], [place] [address] May, [facility] [address] [facility] [address] [id number][place] [id number] Apr, [facility] [address] [place] [address] Apr, Generalized anxiety disorder F41.1 [facility] [address]00565100[place], [place] [address] Mar, [facility] [address] [place] [id number] Feb, [facility] [address] [place] [address] Feb, Hyperlipidemia E78.5 [facility] [address] [id number][place] [id number] Feb, Thyroid lesion E07.89 [facility] [address] [id number], [place] [id number] 20 Fer, 2016 Thyroid lesion E07.89 [facility] [address] [facility] [id number][place] [address] Feb, [facility] [address] [id number], [place] [address] Feb, Shortness of breath R06.02 and COPD exacerbation J44.1 [facility] [address] [id number], [place] [address] Jan, [facility] [address] [id number], [place] [address] Jan, [facility] [address] [facility] [id number], [place] [address] Dec, [facility] [address] [id number], [place] [address] Dec, [facility] [address]65100[place], [place] [address] Nov, Generalized anxiety disorder F41.1 and Depression F32.9 [facility] [address]65100[place], [place] [address] Oct, Panic disorder with agoraphobia and moderate panic attacks 300.21 [facility] [address] [id number], [place] [id number] Sep, [facility] [address] [facility] [id number], [place] [address] Sep, Panic disorder with agoraphobia and moderate panic attacks 300.21 [facility] [address] [id number], [place] [address] Sep, [facility] [address] [id number], [place] [address] Sep, COPD (chronic obstructive pulmonary disease) 496 and Anxiety 300.00 [facility] [address] [id number], [place] [address] June, [facility] [address] [id number], [place] [id number] June, [facility] [address] [id number], [place] [address] June, [facility] [address] [id number], [place] [address] June, [facility] [address] [id number], [place] [address] June, [facility] [address] [id number], [place] [address] June, COPD (chronic obstructive pulmonary disease) 496 ; Weight gain 783.1 ; Tobacco abuse 305.1 and Tobacco abuse counseling V65.[address] [facility] [address] [id number], [place] [address] June, [facility] [address] [id number], [place] [address] May, [facility] [address] [id number], [place] [address] May, [facility] [place] [facility] [address] [id number] [address] May, [facility] [place] [facility] [address] [id number], [place] [address] May, [facility] [place] [facility] [address] [id number], [place] [address] Apr, [facility] [place] [facility] [address] [id number], [place] [address] Apr, [facility] [address] [id number], [place] [address] Feb, [facility] [place] [facility] [address] [id number], [place] [address] Feb, [facility] [address] [facility] [id number][place] [id number] Feb, [facility] [place] [facility] [address] [facility] [id number][place] [address] Feb, [facility] [address] [id number] [place] [address] Feb, [facility] [address] [id number] [place] [address] Feb, [facility] [place] [facility] [address] [id number] [place] [address]- [address] Feb, [facility] [address] [id number] [place] [address]- [address] Feb, [facility] [address] [id number] [place] [id number] Jan, [facility] [address] [id number] [place] [address]- [address] Jan, [facility] [address] [id number] [place] [address] Jan, [facility] [place] [facility] [address] [id number] [place] [address]- [address] Jan, [facility] [place] [facility] [address] [id number] [place] [address]- [address]69 Jan, [facility] [place] [facility] [address] [id number] [place] [address]- [address]40 Jan, [facility] [place] [facility] [address] [id number] [place] [address]- [address] Jan, [facility] [place] [facility] [address] [id number] [place] [address] 1986 Jan, [facility] [place] [facility] [address] [id number] [place] [address]- [address] Jan, [facility] [place] [facility] [address] [id number] [place] [address]- [address]70 Jan, [facility] [place] [facility] [address] [id number] [place] [address]- 8536 Jan, [facility] [place] [facility] [address] [id number] [place] [address]- 6[address] Jan, [facility] [place] [facility] [address] [id number] [place] [address]- 3786 Dec, [facility] [place] [facility] [address] [id number] [place] [address]- 8986 Dec, [facility] [place] [facility] [address] [id number] [place] [address]- [address] Dec, [facility] [place] [facility] [address] [id number] [place] [address]- 8893 Dec, [facility] [place] [facility] [address] [id number] [place] [address]- 1719 Dec, [facility] [place] [facility] [address] [id number] [place] [address]- 7711 Dec, [facility] [place] [facility] [address] [id number] [place] [address]- 1753 Dec, [facility] [place] [facility] [address] [id number] [place] [address]- 7173 Dec, [facility] [place] [facility] [address] [id number] [place] [address]- 68[address] Dec, [facility] [place] [facility] [address] [id number] [place] [address]- 9211 Dec, [facility] [place] [facility] [address] [id number] [place] [address]- [address]34 Dec, [facility] [place] [facility] [address] [id number] [place] [address]- 7322 Dec, [facility] [place] [facility] [address] [id number] [place] [address]- 9469 Nov, [facility] [place] [facility] [address] [id number] [place] [address]- 4294 Nov, [facility] [place] [facility] [address] [id number] [place] [address]- 9863 Nov, [facility] [place] [facility] [address] [id number], [place] [address]- [address] Nov, [facility] [place] [facility] [address] [id number] [place] [address]- 2957 Nov, [facility] [place] [facility] [address] [id number] [place] [address]- 3041 Nov, [facility] [place] [facility] [address] [facility] [id number] [place] [address]- [address] Oct, [facility] [place] [facility] [address] [id number], [place] [address]- [address]136 Oct, [facility] [place] [facility] [address] [id number] [place] [address]- 6034 Oct, [facility] [place] [facility] [address] [id number] [place] [address]- 3470 Oct, [facility] [place] [facility] [address] [id number][place] [address]- [address] Sep, [facility] [place] [facility] [address] [id number], [place] [address]- [address] Sep, [facility] [place] [facility] [address] [id number], [place] [address]- [address] June, [facility] [place] [facility] [address] [facility] [id number], [place] [address]- [address] May, [facility] [place] [facility] [address] [id number], [place] [address]- [address] May, [facility] [place] [facility] [address] [id number], [place] [address]- 1536 May, [facility] [place] [facility] [address] [id number], [place] [address]- [address] 18 May, 2012 [facility] [address] [facility] [id number][place] [id number] 16 May, 2012 [facility] [place] [facility] [address] [facility] [id number], [place] [address]66- [address] May, [facility] [address] [facility] [id number][place] [id number] Nov, [facility] [address]65100[place], [place] [address] Nov, [facility] [address]00565100[place], [place] [address] 2546 Nov, [facility] [address]00565100[place], [place] [address] 2546 Nov, [facility] [address]00565100[place], [place] [address]- [address] Nov, [facility] [address]00565[address] [id number] Nov, [facility] [address] [place] [address] 2546 Nov, [facility] [address]65100[place], [place] [address]- [address] Nov, [facility] [address]65100[place], [place] [address] 2546 Nov, [facility] [address]65100[place], [place] [address]- 47[address] Oct, [facility] [address]65100[place], [place] [address]- [address]226 Oct, [facility] [address] [id number], [place] [address] Sep, [facility] [address]65[address], [place] [address]- [address] Sep, [facility] [address] [id number], [place] [address]- [address] Sep, IMMUNIZATIONS No Known Immunizations SOCIAL HISTORY Never Assessed REASON FOR VISIT PALS PLAN OF CARE VITAL SIGNS MEDICATIONS Medication Instructions Dosage Frequency Start Date End Date Duration Status Spiriva Respimat 2.5 MCG/ACT Inhalation Once a day 2 puffs 24h Aug, Active RESULTS No Results PROCEDURES No Known [...]
--- OUTSIDE RECORDS SUMMARY | 2018-03-14 15:20 | XMS REPORT | Continuity of Care Document ---
Author Author [facility] Address Unknown Phone Unavailable Allergies Active Description Code Type Severity Reaction Onset Reported/Identified Relationship to Patient Clinical Status Yes No Known Drug Allergies [id number] Drug Allergy Unknown N/A 06/25/2014 Medications There is no data. Problems Date Dx Coded Attending Type Code Diagnosis Diagnosed By 09/11/2011 611.72 Breast Palpation Mass 09/11/2011 780.50 SLEEP DISTURBANCE, UNSPECIFIED 09/11/2011 780.8 HOT FLASHES 09/11/2011 611.72 Breast Palpation Mass 09/11/2011 780.50 SLEEP DISTURBANCE, UNSPECIFIED 09/11/2011 780.8 HOT FLASHES 09/11/2011 611.72 Breast Palpation Mass 09/11/2011 780.50 SLEEP DISTURBANCE, UNSPECIFIED 09/11/2011 780.8 HOT FLASHES 09/11/2011 MACIAS DO, DAVIDE K 611.72 Breast Palpation Mass 09/11/2011 MACIAS DO, DAVIDE K 780.50 SLEEP DISTURBANCE, UNSPECIFIED 09/11/2011 MACIAS DO, DAVIDE K 780.8 HOT FLASHES 09/11/2011 EATON SENIOR DATA MODELER, YOLA L 611.72 Breast Palpation Mass 09/11/2011 EATON SENIOR DATA MODELER, YOLA L 780.50 SLEEP DISTURBANCE, UNSPECIFIED 09/11/2011 EATON SENIOR DATA MODELER YOLA L 780.8 HOT FLASHES 09/11/2011 MACIAS DO, DAVIDE K 611.72 Breast Palpation Mass 09/11/2011 MACIAS DO, DAVIDE K 780.50 SLEEP DISTURBANCE, UNSPECIFIED 09/11/2011 MACIAS DO, DAVIDE K 780.8 HOT FLASHES 09/11/2011 EATON SENIOR DATA MODELER YOLA L 611.72 Breast Palpation Mass 09/11/2011 EATON SENIOR DATA MODELER, YOLA L 780.50 SLEEP DISTURBANCE, UNSPECIFIED 09/11/2011 EATON SENIOR DATA MODELER, YOLA L 780.8 HOT FLASHES 09/11/2011 EATON SENIOR DATA MODELER, YOLA L 611.72 Breast Palpation Mass 09/11/2011 RHONDA SENIOR DATA MODELERSANDYYOLA L 780.50 SLEEP DISTURBANCE, UNSPECIFIED 09/11/2011 EATON SENIOR DATA MODELERSANDYYOLA L 780.8 HOT FLASHES 09/11/2011 MACIAS DOJARETA K 611.72 Breast Palpation Mass 09/11/2011 MAICAS DOJARETA K 780.50 SLEEP DISTURBANCE, UNSPECIFIED 09/11/2011 MACIAS DO DAVIDE K 780.8 HOT FLASHES 09/11/2011 EATJG SENIOR DATA MODELER, YOLA L 611.72 Breast Palpation Mass 09/11/2011 EATON SENIOR DATA MODELER YOLA L 780.50 SLEEP DISTURBANCE, UNSPECIFIED 09/11/2011 EATON SENIOR DATA MODELERSANDYYOLA L 780.8 HOT FLASHES 09/11/2011 FROILAN BRYCE SCHAEFERIDI A 611.72 Breast Palpation Mass 09/11/2011 FROILANBRYCE Pastor APRNIDI A 780.50 SLEEP DISTURBANCE, UNSPECIFIED 09/11/2011 FROILANDawit SCHAEFER GILDA A 780.8 HOT FLASHES 11/25/2011 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 FIBROADENOMA 11/25/2011 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 FIBROADENOMA 11/25/2011 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 FIBROADENOMA 11/25/2011 JARET MACIAS DOA K 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 FIBROADENOMA 11/25/2011 EATSANDY GREGORIO APRNSON L 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 FIBROADENOMA 11/25/2011 DAVIDE MACIAS DO K 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 FIBROADENOMA 11/25/2011 EATON SANDY SCHAEFERSON L 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 FIBROADENOMA 11/25/2011 EATSANDY GREGORIO APRNSON L 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 FIBROADENOMA 11/25/2011 JARET MACIAS DOA K 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 FIBROADENOMA 11/25/2011 EATON SENIOR DATA MODELER, YOLA L 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 FIBROADENOMA 11/25/2011 FROILANDawit SCHAEFER GILAD A 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 FIBROADENOMA 05/20/2012 719.41 joint pain, localized in the left shoulder 05/20/2012 719.41 joint pain, localized in the left shoulder 05/20/2012 719.41 joint pain, localized in the left shoulder 05/20/2012 DAVIDE MACIAS DO 719.41 joint pain, localized in the left shoulder 05/20/2012 YOLA ELLIS APRN L 719.41 joint pain, localized in the left shoulder 05/20/2012 JARET MACIAS DOA K 719.41 joint pain, localized in the left shoulder 05/20/2012 EATON SENIOR DATA MODELER, YOLA L 719.41 joint pain, localized in the left shoulder 05/20/2012 EATON SENIOR DATA MODELER, YOLA L 719.41 joint pain, localized in the left shoulder 05/20/2012 MACIAS DO DAVIDE K 719.41 joint pain, localized in the left shoulder 05/20/2012 EATON SENIOR DATA MODELER, YOLA L 719.41 joint pain, localized in the left shoulder 05/20/2012 FROILAN SENIOR DATA MODELER, GILDA A 719.41 joint pain, localized in the left shoulder 05/26/2012 293.84 ANXIETY DISORDER DUE TO GENERAL MEDICAL CONDITION 05/26/2012 293.84 ANXIETY DISORDER DUE TO GENERAL MEDICAL CONDITION 05/26/2012 JARET MACIAS DOA K 293.84 ANXIETY DISORDER DUE TO GENERAL MEDICAL CONDITION 05/26/2012 EATON SENIOR DATA MODELER, YOLA L 293.84 ANXIETY DISORDER DUE TO GENERAL MEDICAL CONDITION 05/26/2012 JARET MACIAS DOA K 293.84 ANXIETY DISORDER DUE TO GENERAL MEDICAL CONDITION 05/26/2012 EATON SENIOR DATA MODELER, YOLA L 293.84 ANXIETY DISORDER DUE TO GENERAL MEDICAL CONDITION 05/26/2012 EATON SENIOR DATA MODELER, YOLA L 293.84 ANXIETY DISORDER DUE TO GENERAL MEDICAL CONDITION 05/26/2012 JARET MACIAS DOA K 293.84 ANXIETY DISORDER DUE TO GENERAL MEDICAL CONDITION 05/26/2012 EATON SENIOR DATA MODELER, YOLA L 293.84 ANXIETY DISORDER DUE TO GENERAL MEDICAL CONDITION 05/26/2012 FROILAN APRN, GILDA A 293.84 ANXIETY DISORDER DUE TO GENERAL MEDICAL CONDITION 10/02/2013 COLLEEN MENDEZ DAVIDE K 466.0 ACUTE BRONCHITIS 10/02/2013 COLLEEN MENDEZ DAVIDE K 786.2 COUGH 10/02/2013 EATON SENIOR DATA MODELER, YOLA L 466.0 ACUTE BRONCHITIS 10/02/2013 EATON SENIOR DATA MODELER, YOLA L 786.2 COUGH 10/02/2013 MACIAS DO DAVIDE K 466.0 ACUTE BRONCHITIS 10/02/2013 MACIAS DO DAVIDE K 786.2 COUGH 10/02/2013 EATON SENIOR DATA MODELER, YOLA L 466.0 ACUTE BRONCHITIS 10/02/2013 EATON SENIOR DATA MODELER, YOLA L 786.2 COUGH 10/02/2013 EATON SENIOR DATA MODELER, YOLA L 466.0 ACUTE BRONCHITIS 10/02/2013 EATON SENIOR DATA MODELER, YOLA L 786.2 COUGH 10/02/2013 MACIAS DO, DAVIDE K 466.0 ACUTE BRONCHITIS 10/02/2013 MACIAS DO, DAVIDE K 786.2 COUGH 10/02/2013 EATON SENIOR DATA MODELER, YOLA L 466.0 ACUTE BRONCHITIS 10/02/2013 EATON SENIOR DATA MODELER, YOLA L 786.2 COUGH 10/02/2013 FROILAN SENIOR DATA MODELER, GILDA A 466.0 ACUTE BRONCHITIS 10/02/2013 FROILAN SENIOR DATA MODELER, GILDA A 786.2 COUGH 11/01/2013 EATON SENIOR DATA MODELER, YOLA L 305.1 TOBACCO ABUSE 11/01/2013 EATON SENIOR DATA MODELER, YOLA L 477.0 ALLERGIC RHINITIS DUE TO POLLEN 11/01/2013 EATON SENIOR DATA MODELER, YOLA L V65.42 TOBACCO COUNSELING 11/01/2013 MACIAS DO, DAVIDE K 305.1 TOBACCO ABUSE 11/01/2013 MACIAS DO, DAVIDE K 477.0 ALLERGIC RHINITIS DUE TO POLLEN 11/01/2013 MACIAS DO, DAVIDE K V65.42 TOBACCO COUNSELING 11/01/2013 EATON SENIOR DATA MODELER, YOLA L 305.1 TOBACCO ABUSE 11/01/2013 EATON SENIOR DATA MODELER, YOLA L 477.0 ALLERGIC RHINITIS DUE TO POLLEN 11/01/2013 EATJG SENIOR DATA MODELER, YOLA L V65.42 TOBACCO COUNSELING 11/01/2013 EATON SENIOR DATA MODELER, YOLA L 305.1 TOBACCO ABUSE 11/01/2013 EATON SENIOR DATA MODELER, YOLA L 477.0 ALLERGIC RHINITIS DUE TO POLLEN 11/01/2013 EATON SENIOR DATA MODELER, YOLA L V65.42 TOBACCO COUNSELING 11/01/2013 MACIAS DO, DAVIDE K 305.1 TOBACCO ABUSE 11/01/2013 MACIAS DO, DAVIDE K 477.0 ALLERGIC RHINITIS DUE TO POLLEN 11/01/2013 MACIAS DO, DAVIDE K V65.42 TOBACCO COUNSELING 11/01/2013 EATON SENIOR DATA MODELER, YOLA L 305.1 TOBACCO ABUSE 11/01/2013 EATON SENIOR DATA MODELER, YOLA L 477.0 ALLERGIC RHINITIS DUE TO POLLEN 11/01/2013 EATON SENIOR DATA MODELER, YOLA L V65.42 TOBACCO COUNSELING 11/01/2013 FROILAN SENIOR DATA MODELER, GILDA A 305.1 TOBACCO ABUSE 11/01/2013 FROILAN SENIOR DATA MODELER, GILDA A 477.0 ALLERGIC RHINITIS DUE TO POLLEN 11/01/2013 FROILAN APRN, GILDA A V65.42 TOBACCO COUNSELING 12/12/2013 COLLEEN MENDEZ DAVIDE K 300.00 ANXIETY UNSPEC 12/12/2013 COLLEEN MENDEZ, DAVIDE K 473.9 UNSPECIFIED SINUSITIS (CHRONIC) 12/12/2013 MACIAS DO, DAVIDE K 786.09 RESPIRATORY ABNORMALITY OTHER 12/12/2013 EATON SENIOR DATA MODELER, YOLA L 300.00 ANXIETY UNSPEC 12/12/2013 EATON SENIOR DATA MODELER, YOLA L 473.9 UNSPECIFIED SINUSITIS (CHRONIC) 12/12/2013 EATON SENIOR DATA MODELER, YOLA L 786.09 RESPIRATORY ABNORMALITY OTHER 12/12/2013 EATON SENIOR DATA MODELER, YOLA L 300.00 ANXIETY UNSPEC 12/12/2013 EATON SENIOR DATA MODELER, YOLA L 473.9 UNSPECIFIED SINUSITIS (CHRONIC) 12/12/2013 EATON SENIOR DATA MODELER, YOLA L 786.09 RESPIRATORY ABNORMALITY OTHER 12/12/2013 COLLEEN MENDEZ, DAVIDE K 300.00 ANXIETY UNSPEC 12/12/2013 COLLEEN MENDEZ DAVIDE K 473.9 UNSPECIFIED SINUSITIS (CHRONIC) 12/12/2013 COLLEEN MENDEZ, DAVIDE K 786.09 RESPIRATORY ABNORMALITY OTHER 12/12/2013 EATON SENIOR DATA MODELER, YOLA L 300.00 ANXIETY UNSPEC 12/12/2013 EATON SENIOR DATA MODELER, YOLA L 473.9 UNSPECIFIED SINUSITIS (CHRONIC) 12/12/2013 EATON SENIOR DATA MODELER, YOLA L 786.09 RESPIRATORY ABNORMALITY OTHER 12/12/2013 FROILANDawit SCHAEFER GILDA A 300.00 ANXIETY UNSPEC 12/12/2013 FROILAN SCHAEFER GILDA A 473.9 UNSPECIFIED SINUSITIS (CHRONIC) 12/12/2013 FROILAN SILVANO GILDA A 786.09 RESPIRATORY ABNORMALITY OTHER 01/03/2014 EATON SENIOR DATA MODELER, YOLA L 491.9 UNSPECIFIED CHRONIC BRONCHITIS 01/03/2014 EATON SENIOR DATA MODELER YOLA L 491.9 UNSPECIFIED CHRONIC BRONCHITIS 01/03/2014 MACIAS DO DAVIDE K 491.9 UNSPECIFIED CHRONIC BRONCHITIS 01/03/2014 EATON SENIOR DATA MODELER, YOLA L 491.9 UNSPECIFIED CHRONIC BRONCHITIS 01/03/2014 FROILANDawit SCHAEFER GILDA A 491.9 UNSPECIFIED CHRONIC BRONCHITIS 01/05/2014 EATON SENIOR DATA MODELER, YOLA L V15.82 NICOTINE ABUSE 01/05/2014 DAVIDE MACIAS DO K V15.82 NICOTINE ABUSE 01/05/2014 EATON SENIOR DATA MODELER, YOLA L V15.82 NICOTINE ABUSE 01/05/2014 FROILAN SENIOR DATA MODELER, GILDA A V15.82 NICOTINE ABUSE 02/06/2014 JARET MACIAS DOA K 496 COPD 02/06/2014 JARET MACIAS DOA K V58.69 HIGH RISK MEDICATION 02/06/2014 EATON SENIOR DATA MODELER, YOLA L 496 COPD 02/06/2014 EATON SENIOR DATA MODELER, YOLA L V58.69 HIGH RISK MEDICATION 02/06/2014 FROILAN SENIOR DATA MODELER, GILDA A 496 COPD 02/06/2014 FROILAN SENIOR DATA MODELER, GILDA A V58.69 HIGH RISK MEDICATION 02/20/2014 BRYCE MCGOVERN APRNIDI A 611.71 MASTODYNIA 02/20/2014 GILDA MCGOVERN APRN A 625.9 PELVIC PAIN 02/20/2014 GILDA MCGOVERN APRN A V72.31 PROJECT DEVELOPMENT DIRECTOR EXAM, ROUTINE 02/20/2014 GILDA MCGOVERN APRN A V76.10 BREAST CANCER SCREENING 02/26/2014 JULIUS ALVARADO, RUSS Walker Ot 611.72 02/26/2014 JULIUS ALVARADO, RUSS Walker Ot V67.59 02/26/2014 DAGMAR GODINEZ LINE MAINTENANCE SUPERVISOR Ot 611.72 03/30/2014 JULIUS ALVARADO, RUSS Walker Ot 611.72 03/30/2014 RUSS MADRID MD Ot V67.59 03/30/2014 DAGMAR GODINEZ LINE MAINTENANCE SUPERVISOR Ot 611.72 03/30/2014 GILDA MCGOVERN A SENIOR DATA MODELER Ot 625.9 03/30/2014 GILDA MCGOVERN A SENIOR DATA MODELER Ot V88.02 05/22/2014 RUSS MADRID MD Ot 611.72 05/22/2014 RUSS MADRID MD Ot V67.59 05/22/2014 DAGMAR GODINEZ LINE MAINTENANCE SUPERVISOR Ot 611.72 05/22/2014 GILDA MCGOVERN A SENIOR DATA MODELER Ot 625.9 05/22/2014 GILDA MCGOVERN A SENIOR DATA MODELER Ot V88.02 06/22/2014 RUSS MADRID MD Ot 611.72 06/22/2014 RUSS MADRID MD Ot V67.59 06/22/2014 DAGMAR GODINEZ LINE MAINTENANCE SUPERVISOR Ot 611.72 06/22/2014 GILDA MCGOVERN SENIOR DATA MODELER Ot 625.9 06/22/2014 GILDA MCGOVERN SENIOR DATA MODELER Ot V88.02 06/22/2014 YOLA ELLIS LINE MAINTENANCE SUPERVISOR Ot 217 08/06/2014 ALFARO DO, ROOSEVELT C Ot 573.8 08/06/2014 ALFARO DO, ROOSEVELT C Ot 576.8 08/06/2014 ALFARO DO, ROOSEVELT C Ot 625.9 08/06/2014 ALFARO DO, ROOSEVELT C Ot 724.6 08/06/2014 ALFARO DO, ROOSEVELT C Ot 789.00 08/21/2014 ALFARO DO, ROOSEVELT C Ot 573.8 08/21/2014 ALFARO DO, ROOSEVELT C Ot 576.8 08/21/2014 ALFARO DO, ROOSEVELT C Ot 625.9 08/21/2014 ALFARO DO, ROOSEVELT C Ot 724.6 08/21/2014 ALFARO DO, ROOSEVELT C Ot 789.00 02/06/2015 ALFARO DO, ROOSEVELT C Ot N39.3 STRESS INCONTINENCE (FEMALE) (MALE) 02/06/2015 ALFARO DO ROOSEVELT C Ot N81.2 INCOMPLETE UTEROVAGINAL PROLAPSE 02/06/2015 ALFARO DO, ROOSEVELT C Ot Z23 ENCOUNTER FOR IMMUNIZATION 02/15/2015 ALFARO , ROOSEVELT C Ot J44.9 02/15/2015 ALFARO DO ROOSEVELT C Ot N81.9 02/15/2015 ALFARO DO ROOSEVELT C Ot Z01.818 03/07/2015 YOLA ELLIS LINE MAINTENANCE SUPERVISOR Ot E04.2 03/20/2015 JULIUS ALVARADO, RUSS Walker Ot 611.72 03/20/2015 JULIUS ALVARADO, RUSS Walker Ot V67.59 03/20/2015 DAGMAR GODINEZ LINE MAINTENANCE SUPERVISOR Ot 611.72 03/20/2015 GILDA MCGOEVRN SENIOR DATA MODELER Ot 625.9 03/20/2015 GILDA MCGOVERN SENIOR DATA MODELER Ot V88.02 03/20/2015 YOLA ELLIS LINE MAINTENANCE SUPERVISOR Ot 217 03/20/2015 ALFARO DO, ROOSEVELT C Ot 573.8 03/20/2015 ALFARO DO, ROOSEVELT C Ot 576.8 03/20/2015 ALFARO DO, ROOSEVELT C Ot 625.9 03/20/2015 ALFARO DO, ROOSEVELT C Ot 724.6 03/20/2015 ALFARO DO, ROOSEVELT C Ot 789.00 03/20/2015 ALFARO DO, ROOSEVELT C Ot J44.9 03/20/2015 ALFARO DO, ROOSEVELT C Ot N81.2 03/20/2015 ALFARO DO, ROOSEVELT C Ot Z01.811 03/20/2015 ALFARO DO, ROOSEVELT C Ot Z01.812 03/20/2015 ALFARO DO, ROOSEVELT C Ot Z11.2 03/20/2015 ALFARO DO, ROOSEVELT C Ot J44.9 03/20/2015 ALFARO DO, ROOSEVELT C Ot N81.9 03/20/2015 ALFARO DO, ROOSEVELT C Ot Z01.818 03/20/2015 YOLA ELLIS LINE MAINTENANCE SUPERVISOR Ot E04.2 03/20/2015 EATONYOLA LINE MAINTENANCE SUPERVISOR Ot E04.2 03/22/2015 ALFARO DO, ROOSEVELT C Ot J44.9 03/22/2015 ALFARO DO, ROOSEVELT C Ot N81.2 03/22/2015 ALFARO DO, ROOSEVELT C Ot Z01.811 03/22/2015 ALFARO DO, ROOSEVELT C Ot Z01.812 03/22/2015 ALFARO DO, ROOSEVELT C Ot Z11.2 03/22/2015 EATYOLA GREGORIO LINE MAINTENANCE SUPERVISOR Ot E04.2 04/03/2015 ALFARO DO, ROOSEVELT C Ot J44.9 04/03/2015 ALFARO DO, ROOSEVELT C Ot N81.2 04/03/2015 ALFARO DO, ROOSEVELT C Ot Z01.811 04/03/2015 ALFARO DO, ROOSEVELT C Ot Z01.812 04/03/2015 ALFARO DO, ROOSEVELT C Ot Z11.2 04/03/2015 EATYOLA GREGORIO LINE MAINTENANCE SUPERVISOR Ot E04.2 04/10/2015 NIKKIE RAMOS DO Ot R06.83 SNORING 04/18/2015 NIKKIE RAMOS DO Ot R06.83 05/21/2015 RACHEL MENDEZ NIKKIE Wilma Ot F41.9 05/21/2015 RACHEL MENDEZ NIKKIE Wilma Ot J44.9 05/30/2015 YOLA ELLIS Ot R92.8 OTH ABN AND INCONCLUSIVE FINDINGS ON DX 06/04/2015 RACHELSURENDRA MENDEZ NIKKIE M Ot F41.9 ANXIETY DISORDER, UNSPECIFIED 06/04/2015 NIKKIE RAMOS DO Ot J44.9 CHRONIC OBSTRUCTIVE PULMONARY DISEASE, U 08/25/2015 NIKKIE RAMOS DO Ot J44.9 CHRONIC OBSTRUCTIVE PULMONARY DISEASE, U 08/25/2015 NIKKIE RAMOS DO Ot R06.00 DYSPNEA, UNSPECIFIED 07/21/2016 JULIUS ALVARADO, RUSS Walker Ot 611.72 LUMP OR MASS IN BREAST 07/21/2016 JULIUS ALVARADO, RUSS Walker Ot V67.59 FOLLOW-UP EXAM NEC 07/21/2016 DAGMAR GODINEZ LINE MAINTENANCE SUPERVISOR Ot 611.72 LUMP OR MASS IN BREAST 07/21/2016 GILDA MCGOVERN SENIOR DATA MODELER Ot 625.9 FEM GENITAL SYMPTOMS NOS 07/21/2016 GILDA MCGOVERN SENIOR DATA MODELER Ot V88.02 ACQUIRED ABSENCE OF UTERUS WITH REMAININ 07/21/2016 YOLA ELLIS LINE MAINTENANCE SUPERVISOR Ot 217 BENIGN NEOPLASM BREAST 07/21/2016 ROOSEVELT ALFARO DO Ot 573.8 LIVER DISORDERS NEC 07/21/2016 ROOSEVELT ALFARO DO Ot 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 07/21/2016 ROOSEVELT ALFARO DO Ot 625.9 FEM GENITAL SYMPTOMS NOS 07/21/2016 ROOSEVELT ALFARO DO Ot 724.6 DISORDERS OF SACRUM 07/21/2016 ROOSEVELT ALFARO DO Ot 789.00 ABDOMINAL PAIN, UNSPECIFIED SITE 07/21/2016 ROOSEVELT ALFARO DO Ot J44.9 CHRONIC OBSTRUCTIVE PULMONARY DISEASE, U 07/21/2016 ROOSEVELT ALFARO DO Ot N81.2 INCOMPLETE UTEROVAGINAL PROLAPSE 07/21/2016 ROOSEVELT ALFARO DO Ot Z01.811 ENCOUNTER FOR PREPROCEDURAL RESPIRATORY 07/21/2016 ROOSEVELT ALFARO DO Ot Z01.812 ENCOUNTER FOR PREPROCEDURAL LABORATORY E 07/21/2016 ROOSEVELT ALFARO DO Ot Z11.2 ENCOUNTER FOR SCREENING FOR OTHER BACTER 07/21/2016 ALFAROROOSEVELT Reinoso DO Ot J44.9 CHRONIC OBSTRUCTIVE PULMONARY DISEASE, U 07/21/2016 ALFARO ROOSEVELT MENDEZ Ot N81.9 FEMALE GENITAL PROLAPSE, UNSPECIFIED 07/21/2016 ANGELINA ROOSEVELT MENDEZ Ot Z01.818 ENCOUNTER FOR OTHER PREPROCEDURAL EXAMIN 07/21/2016 YOLA ELLISP Ot E04.2 NONTOXIC MULTINODULAR GOITER 07/21/2016 NIKKIE RAMOS DO Ot F41.9 ANXIETY DISORDER, UNSPECIFIED 07/21/2016 NIKKIE RAMOS DO Ot J44.9 CHRONIC OBSTRUCTIVE PULMONARY DISEASE, U 07/21/2016 YOLA ELLIS Ot R92.8 OTH ABN AND INCONCLUSIVE FINDINGS ON DX 07/21/2016 NIKKIE RAMOS DO Ot J44.9 CHRONIC OBSTRUCTIVE PULMONARY DISEASE, U 07/21/2016 NIKKIE RAMOS DO Ot R06.00 DYSPNEA, UNSPECIFIED 07/23/2016 YOLA ELLIS LINE MAINTENANCE SUPERVISOR Ot N60.01 SOLITARY CYST OF RIGHT BREAST 02/25/2018 YOLA ELLIS LINE MAINTENANCE SUPERVISOR Ot N60.01 SOLITARY CYST OF RIGHT BREAST 02/25/2018 YOLA ELLIS LINE MAINTENANCE SUPERVISOR Ot N63.10 UNSPECIFIED LUMP IN THE RIGHT BREAST, UN Procedures Code Description [place] [address] THERAPUTIC INJ SQ/IM 05/20/2012 J1885 TORADOL INJ 05/20/2012 74389 JOINT INJECTION- LARGE JOINT (SPECIFY MEDCIN DESCRIPTION) 05/20/2012 07985 US BREAST ULTRASOUND, RIGHT 05/28/2012 34763 MAMMOGRAM DX, RIGHT 05/28/2012 63319 XRAY SHOULDER LEFT COMP 2 VIEWS 06/02/2012 20798 MAMMOGRAM DX, EMIL 10/02/2013 72228 ROUTINE VENIPUNCTURE 11/01/2013 21601 CMP 11/01/2013 43180 LIPID PANEL 11/01/2013 00830 TSH 11/01/2013 72790 CBC 11/01/2013 38830 OXIMETRY 11/01/2013 00276 URINE DRUG SCREEN (IN-HOUSE ) 12/12/2013 27308 ROUTINE VENIPUNCTURE 12/12/2013 71083 RAST ALLERGY OK/KS PANEL 12/12/2013 51409 PULMONARY FUNCTION TEST 12/12/2013 96405 OXIMETRY 12/12/2013 60251 PULMONARY FUNCTION TEST (IN- HOUSE) 01/05/2014 86016 BRONCHODILATION PRE/POST 01/05/2014 03350 RESPIRATORY FLOW VOLUME LOOP 01/05/2014 20630 PULMONARY EDUCATION 01/05/2014 G0437 TOBACCO-USE MATCH MAKER>10MIN 01/05/2014 50711 URINE DRUG SCREEN (IN-HOUSE ) 02/06/2014 99447 ROUTINE VENIPUNCTURE 02/09/2014 17537 TSH 02/09/2014 07321 US PELVIC COMPL (REFLEX CPT - 06517) 02/20/2014 02176 MAMMOGRAM DX, EMIL 02/20/2014 Results Test Result Range [facility] - 04/07/17 08:38 GLUCOSE 101 mg/dL 65-99 UREA NITROGEN (BUN) 10 mg/dL 7-25 CREATININE 0.71 mg/dL 0.50-1.05 eGFR NON-AFR. GREEK 95 mL/min/1.73m2 > OR=60 eGFR 110 mL/min/1.73m2 > OR=60 BUN/CREATININE RATIO NOT APPLICABLE (calc) 6-22 SODIUM 141 mmol/L 135-146 POTASSIUM 4.1 mmol/L 3.5-5.3 CHLORIDE 107 mmol/L 98-110 CARBON DIOXIDE 29 mmol/L 20-31 CALCIUM 9.8 mg/dL 8.6-10.4 PROTEIN, TOTAL 6.9 g/dL 6.1-8.1 ALBUMIN 4.5 g/dL 3.6-5.1 GLOBULIN 2.4 g/dL (calc) 1.9-3.7 ALBUMIN/GLOBULIN RATIO 1.9 (calc) 1.0-2.5 BILIRUBIN, TOTAL 0.6 mg/dL 0.2-1.2 ALKALINE PHOSPHATASE 98 U/L 33-130 AST 11 U/L 10-35 ALT 15 U/L 6-29 CBC - 04/07/17 08:38 WHITE BLOOD CELL COUNT 4.6 Thousand/uL 3.8-10.8 RED BLOOD CELL COUNT 4.60 Million/uL 3.80-5.10 HEMOGLOBIN 13.6 g/dL 11.7-15.5 HEMATOCRIT 41.1 % 35.0-45.0 MCV 89.3 fL 80.0-100.0 MCH 29.6 pg 27.0-33.0 MCHC 33.1 g/dL 32.0-36.0 RDW 13.5 % 11.0-15.0 PLATELET COUNT 283 Thousand/uL 140-400 MPV 10.8 fL 7.5-12.5 ABSOLUTE NEUTROPHILS 2571 cells/uL 1038-4570 ABSOLUTE LYMPHOCYTES 1293 cells/uL 850-3900 ABSOLUTE MONOCYTES 340 cells/uL 200-950 ABSOLUTE EOSINOPHILS 327 cells/uL 15-500 ABSOLUTE BASOPHILS 69 cells/uL 0-200 NEUTROPHILS 55.9 % NRG LYMPHOCYTES 28.1 % NRG MONOCYTES 7.4 % NRG EOSINOPHILS 7.1 % NRG BASOPHILS 1.5 % NRG Encounters ACCT No. Visit Date/Time Discharge Status Pt. Type Provider Facility Loc./Unit Complaint [id number] 02/20/2014 13:03:00 02/20/2014 23:59:59 CLS Outpatient GILDA MCGOVERN APRN [id number] 02/09/2014 14:54:00 02/09/2014 23:59:59 CLS Outpatient YOLA ELLIS APRN [id number] 02/06/2014 10:18:00 02/06/2014 23:59:59 CLS Outpatient DAVIDE MACIAS DO [id number] 01/05/2014 10:20:00 01/05/2014 23:59:59 CLS Outpatient YOLA ELLIS APRN [id number] 01/03/2014 09:24:00 01/03/2014 23:59:59 CLS Outpatient YOLA ELLIS APRN [id number] 12/12/2013 13:21:00 12/12/2013 23:59:59 CLS Outpatient DAVIDE MACIAS DO [id number] 11/01/2013 07:27:00 11/01/2013 23:59:59 CLS Outpatient YOLA ELLIS APRN [id number] 10/02/2013 09:25:00 10/02/2013 23:59:59 CLS Outpatient DAVIDE MACIAS DO [id number] 06/02/2012 15:12:00 Document Registration [id number] 05/26/2012 15:42:00 Document Registration [id number] 05/20/2012 15:43:00 Document Registration [id number] 02/16/2018 11:00:00 02/16/2018 23:59:59 CLS Outpatient YOLA [facility]LLIS [facility] [id number] 04/07/2017 08:00:00 Document Registration [id number] 02/24/2018 12:04:00 02/24/2018 23:59:59 CLS Outpatient YOLA ELLIS [facility] RAD CYST OF RT BREAST [id number] 07/22/2016 08:25:00 07/22/2016 23:59:59 CLS Outpatient YOLA ELLIS [facility] RAD N60.01 CYST OF RIGHT BREAST [id number] 08/26/2015 15:00:00 08/26/2015 23:59:59 CLS Preadmit NIKKIE RAMOS DO [facility] PULM COPD,DYSPNEA [id number] 05/27/2015 14:36:00 08/25/2015 00:01:00 DIS Outpatient NIKKIE RAMOS DO [facility] PULM COPD,DYSPNEA [id number] 05/29/2015 14:09:00 05/29/2015 23:59:59 CLS Outpatient YOLA ELLIS [facility] RAD ABNORMAL MAMMO [id number] 04/09/2015 20:35:00 04/10/2015 06:15:00 DIS Outpatient NIKKIE RAMOS DO [facility] SLEEP CHOKING/GASPING DURING SLEEP,EXCESSIVE DAYTIME SLE [id number] 03/20/2015 15:41:00 03/20/2015 23:59:59 CLS Outpatient NIKKIE RAMOS DO [facility] RT COPD,ANXIETY,DYSPNEA [id number] 03/05/2015 10:04:00 03/05/2015 23:59:59 CLS Outpatient YOLA ELLIS [facility] RAD THYROID LESION [id number] 02/05/2015 08:08:00 02/06/2015 09:45:00 DIS Outpatient ROOSEVELT ALFARO DO [facility] SDC GENITAL PROLAPSE; INCOMPLETE [id number] 02/04/2015 11:37:00 02/04/2015 23:59:59 CLS Outpatient ROOSEVELT ALFARO DO [facility] PREOP GENITAL PROLAPSE; INCOMPLETE [id number] 12/31/2014 14:13:00 12/31/2014 23:59:59 CLS Outpatient ROOSEVELT ALFARO DO [facility] PREOP GENITAL PROLAPSE; INCOMPLETE [id number] 06/25/2014 14:10:00 06/25/2014 23:59:59 CLS Outpatient ROOSEVELT ALFARO DO [facility] RAD ABD PAIN, SACRAL SWELLING [id number] 05/30/2014 13:41:00 05/30/2014 23:59:59 CLS Outpatient YOLA ELLIS [employer] [facility] RAD BREAST NEOPLASAM [id number] 02/26/2014 14:01:00 02/26/2014 23:59:59 CLS Outpatient GILDA MCGOVERN APRN [facility] RAD PELVIC PAIN [id number] 11/13/2013 12:52:00 11/13/2013 23:59:59 CLS Outpatient DAGMAR GODINEZ [employer] [facility] RAD BREAST PALPITATION MASS [id number] 06/02/2012 12:31:00 06/02/2012 23:59:59 CLS Outpatient JULIUS ALVARADO, RUSS Walker [facility] RAD 6 MONTH FOLLOW UP, LUMPS IN RIGHT BREAST
[2018-03-14 15:58] LABS: ALANINE AMINOTRANSFERASE 20 U/L (0-55); ALBUMIN 4.4 GM/DL (3.2-4.5); ALKALINE PHOSPHATASE 94 U/L (40-136); BILIRUBIN,TOTAL 0.8 MG/DL (0.1-1.0); BUN/CREATININE RATIO 9; CALCIUM 9.4 MG/DL (8.5-10.1); CARBON DIOXIDE 21 MMOL/L (21-32); CHLORIDE 109 MMOL/L (98-107); CREATININE SERUM 0.82 MG/DL (0.60-1.30); GFR ESTIMATED > 60; GLUCOSE 91 MG/DL (70-105); POTASSIUM 3.9 MMOL/L (3.6-5.0); SODIUM 141 MMOL/L (135-145); TOTAL PROTEIN 6.8 GM/DL (6.4-8.2)
--- NOTE | 2018-03-14 16:22 | Diagnostic Imaging Report ---
INDICATION: Shortness of breath. TECHNIQUE: Frontal chest obtained at 3:49 p.m. and compared with 12/31/2014. FINDINGS: Heart and mediastinal silhouette are normal in appearance. There are chronic-appearing increased interstitial markings over the lung bases. There is no acute consolidation or pneumothorax or pleural fluid. IMPRESSION: Chronic-appearing increased basilar markings. No acute consolidation or other acute finding. Dictated by: Dictated on workstation # [id number]
--- NOTE | 2018-03-14 16:51 | ED Respiratory ---
General Chief Complaint: Respiratory Problems Stated Complaint: CHEST PAIN Nursing Triage Note: PATIENT HERE FROM DR. KAUFFMAN'S OFFICE FOR DYSPNEA AT REST. PATIENT TACYPNEIC AND HAVING DIFFICULTY SPEAKING. O2 SAT 97% ON RA. Source: patient Exam Limitations: no limitations History of Present Illness Date Seen by Provider: Mar 14, 2018 Time Seen by Provider: 15:07 Initial Comments 57-year-old female who was sent to the emergency room from Dr. Kauffman's office for increased dyspnea at rest. She was being evaluated by respiratory therapy and was going on a 6 minute walk when she had severe shortness of breath. Her oxygen saturation is 97% but she is taking neck and very short of breath on arrival to the emergency room. Timing/Duration: just prior to arrival Allergies and Home Medications Allergies Coded Allergies: No Known Drug Allergies (Unverified , 06/25/14) Home Medications Albuterol Sulfate 0.63 Mg/3 Ml Vial.neb, 0.083 % IH PRN, (Reported) Albuterol Sulfate 8.5 Gm Hfa.aer.ad, 8.5 GM IH PRN, (Reported) Calcium Carbonate 600 Mg Tablet, 600 MG PO DAILY, (Reported) Cetirizine HCl 10 Mg Tablet, 10 MG PO DAILY, (Reported) Docusate Sodium 100 Mg Capsule, 100 MG PO BID Prescribed by: ROOSEVELT ALFARO on 02/05/152017 Fluticasone/Salmeterol 1 Each Blst.w.dev, 1 EACH IH BID, (Reported) Hydrocodone Bit/Acetaminophen 1 Each Tablet, 1-2 TAB PO Q4H PRN for PAIN Prescribed by: ROOSEVELT ALFARO on 02/05/152017 Ibuprofen 600 Mg Tablet, 600 MG PO Q6H Prescribed by: ROOSEVELT ALFARO on 02/05/152017 Lorazepam 2 Mg Tablet, 2 MG PO PRN, (Reported) Polyethylene Glycol 3350 17 Gm Powd.pack, 17 GM PO TID 17 grams with 8 oz water every night to every other night to keep stools soft. If diarrhea, dec. dose and use q other night Prescribed by: ROOSEVELT ALFARO on 02/05/152017 Tiotropium [place] 1 Inh Aerp, 1 INH IH DAILY, (Reported) Vortioxetine Hydrobromide 5 Mg Tablet, 5 MG PO HS, (Reported) Past Nwodktr-Hhkevt-Fswagb Hx Patient Social History Alcohol Use: Denies Use Recreational Drug Use: No Smoking Status: Never a Smoker 2nd Hand Smoke Exposure: No Recent Foreign Travel: No Contact w/Someone Who Travel: No Recent Infectious Disease Expo: No Past Medical History Surgeries: Yes (KNEE SCOPE) Respiratory: Yes Asthma, Pneumonia, Chronic Bronchitis, COPD Cardiac: No Neurological: No Reproductive Disorders: No Female Reproductive Disorders: Denies Sexually Transmitted Disease: No HIV/AIDS: No Gastrointestinal: No Musculoskeletal: Yes Degenerate Disk Disease, Osteoporosis, Arthritis, Chronic Back Pain Endocrine: No Loss of Vision: Denies Hearing Impairment: Denies Cancer: No Psychosocial: Yes (A LOT OF ANXIETY) Anxiety Integumentary: No Blood Disorders: No Adverse Reaction/Blood Tranf: No Family Medical History Arthritis 19 FATHER 19 MOTHER Cardiovascular disease 19 MOTHER Respiratory disorder 19 FATHER Physical Exam Vital Signs - First Documented 03/14/18 03/14/18 14:55 15:12 Temp 98.3 Pulse 105 Resp 30 B/P (MAP) 135/88 (104) Pulse Ox 96 O2 Delivery Room Air O2 Flow Rate 0 Capillary Refill : Less Than 3 Seconds Height: 5'5.00" Weight: 140lbs. 0oz. 63.159567im; BMI Method:Stated Progress/Results/Core Measures Suspected Sepsis Recent Fever Within 48 Hours: No Infection Criteria Present: Suspected New Infection New/Unexplained Altered Menta: No Sepsis Screen: Possible Sepsis Risk SIRS Temperature:98.3 Pulse: 105 Respiratory Rate: 30 Laboratory Tests 03/14/18 15:05: White Blood Count 6.7 Blood Pressure 135 /88 Mean: 104 Laboratory Tests 03/14/18 15:05: Creatinine 0.82, Platelet Count 267, Total Bilirubin 0.8 Results/Orders Lab Results Laboratory Tests Test 03/14/18 15:05 Range/Units White Blood Count 6.7 4.3-11.0 10^3/uL Red Blood Count 4.63 4.35-5.85 10^6/uL Hemoglobin 13.4 11.5-16.0 G/DL Hematocrit 40 35-52 % Mean Corpuscular Volume 86 80-99 FL Mean Corpuscular Hemoglobin 29 25-34 PG Mean Corpuscular Hemoglobin Concent 34 32-36 G/DL Red Cell Distribution Width 13.2 10.0-14.5 % Platelet Count 267 130-400 10^3/uL Mean Platelet Volume 10.4 7.4-10.4 FL Neutrophils (%) (Auto) 53 42-75 % Lymphocytes (%) (Auto) 32 12-44 % Monocytes (%) (Auto) 8 0-12 % Eosinophils (%) (Auto) 6 0-10 % Basophils (%) (Auto) 1 0-10 % Neutrophils # (Auto) 3.6 1.8-7.8 X 10^3 Lymphocytes # (Auto) 2.1 1.0-4.0 X 10^3 Monocytes # (Auto) 0.5 0.0-1.0 X 10^3 Eosinophils # (Auto) 0.4 H 0.0-0.3 10^3/uL Basophils # (Auto) 0.1 0.0-0.1 10^3/uL D-Dimer 0.32 0.00-0.49 UG/ML Sodium Level 141 135-145 MMOL/L Potassium Level 3.9 3.6-5.0 MMOL/L Chloride Level 109 H 98-107 MMOL/L Carbon Dioxide Level 21 21-32 MMOL/L Anion Gap 11 5-14 MMOL/L Blood Urea Nitrogen 7 7-18 MG/DL Creatinine 0.82 0.60-1.30 MG/DL Estimat Glomerular Filtration Rate > 60 BUN/Creatinine Ratio 9 Glucose Level 91 70-105 MG/DL Calcium Level 9.4 8.5-10.1 MG/DL Corrected Calcium 9.1 8.5-10.1 MG/DL Total Bilirubin 0.8 0.1-1.0 MG/DL Aspartate Amino Transf (AST/SGOT) 20 5-34 U/L Alanine Aminotransferase (ALT/SGPT) 20 0-55 U/L Alkaline Phosphatase 94 40-136 U/L Troponin I < 0.028 <0.028 NG/ML B-Type Natriuretic Peptide 19.6 <100.0 PG/ML Total Protein 6.8 6.4-8.2 GM/DL Albumin 4.4 3.2-4.5 GM/DL My Orders Orders - ASIA GARNER Cbc With Automated Diff (03/14/18 15:07) Comprehensive Metabolic Panel (03/14/18 15:07) BNP (03/14/18 15:07) Chest 1 View, Ap/Pa Only (03/14/18 15:07) Fibrin Degradation Products (03/14/18 15:07) Ekg Tracing (03/14/18 15:07) O2 (03/14/18 15:07) Saline Lock/Iv-Start (03/14/18 15:07) Monitor-Rhythm Ecg Trace Only (03/14/18 15:07) Albuterol Pre-Mix Nebs (Rt) (Proventil (03/14/18 15:12) Albuterol/Ipra Inhalation Soln (Duoneb I (03/14/18 15:15) Svn Small Volume Nebulizer (03/14/18 15:10) Svn Small Volume Nebulizer (03/14/18 15:10) Troponin I (03/14/18 16:17) Medications Given in ED Current Medications Medications Dose Ordered Sig/Gary Route Start Time Stop Time Status Last Admin Dose Admin Albuterol Sulfate 5 mg ONCE ONCE INH 03/14/18 15:12 03/14/18 15:13 DC 03/14/18 15:13 5 MG Albuterol/ Ipratropium 3 ml ONCE ONCE INH 03/14/18 15:15 03/14/18 15:16 DC 03/14/18 15:13 3 ML Vital Signs/I&O 03/14/18 03/14/18 14:55 15:12 Temp 98.3 Pulse 105 Resp 30 B/P (MAP) 135/88 (104) Pulse Ox 96 O2 Delivery Room Air Room Air O2 Flow Rate 0 Capillary Refill : Less Than 3 Seconds Blood Pressure Mean: 104 Departure Impression Primary Impression: COPD exacerbation Disposition: 01 HOME, SELF-CARE Condition: Stable/Unchanged Departure-Patient Inst. Decision time for Depature: 16:49 Referrals: DAVIDE MACIAS DO (PCP/Family) Primary Care Physician Patient Instructions: Exacerbation of COPD Add. Discharge Instructions: Resume your home medications as previously prescribed. Dr. Kauffman's into and a prescription for prednisone to your pharmacy prior to you coming down to the emergency room. Take Prescription as directed. Return back to the emergency room for worsening shortness of breath, chest pain, or any other concerns as needed. Follow-up with her primary care provider within 1 week for recheck. Follow-up with Dr. Kauffman as needed. All discharge instructions reviewed with patient and/or family. Voiced understanding. ASIA GARNER Mar 14, 2018 16:51
[2018-03-14 17:05] VITALS: BP 135/88
== END | disposition home or self-care (01) ==
LOC: EDUNIT# 14:52 → ER 14:53
DX: J44.1 Chronic obstructive pulmonary disease with (acute) exacerbation (principal); M81.0 Age-related osteoporosis without current pathological fracture; F41.9 Anxiety disorder, unspecified; Z82.49 Family history of ischemic heart disease and other diseases of the circulatory system; Z79.51 Long term (current) use of inhaled steroids; Z87.01 Personal history of pneumonia (recurrent)
CPT/HCPCS: 36415; 71045; 80053; 83880; 84484; 85025; 85379; 93005; 93041; 94640

== ENCOUNTER → 2018-03-28 | Outpatient (CLI) | payer OTHER ==
[~2018-03-28] MED LIST changes: -ACHD5005 PO; -ALBU0.63 IH; -CALC600T12 PO; -CETI10TA20 PO; -DOCU100C37 PO; -FLUT1DIS28 IH; -IBUP-1773 PO; +IOHEXOL 350 MG/ML 100 ML (OMNIPAQUE 350) VIAL IV ONE; -LORA-407 PO; +NS 100 ML (IVPB) BAG IV ONE; -POLY17PO31 PO; +RECEIVED CONTRAST (Hold Metformin) IV SCH; -RT-ALBUINH IH; -RT-ALBUTEROL SULF 2.5 MG/3 ML PRE-MIX VIAL ONE; -RT-ALBUTEROL/IPRATROPIUM 3 ML (DUONEB) VIAL INH ONE; -RT-ALBUTEROL/IPRATROPIUM 3 ML (DUONEB) VIAL ONE; -TIOT18CA2 IH; -VORT5TAB PO
[2018-03-28 09:50] LABS: BUN/CREATININE RATIO 9; CREATININE SERUM 0.87 MG/DL (0.60-1.30); GFR ESTIMATED > 60
--- NOTE | 2018-03-28 10:20 | Diagnostic Imaging Report ---
PROCEDURE: CT chest with contrast only. TECHNIQUE: Multiple contiguous axial images were obtained through the chest after administration of intravenous contrast. INDICATION: Allergic rhinitis with COPD and GERD. COMPARISON: No prior studies are available for comparison. FINDINGS: No axillary lymphadenopathy is identified. There are small lymph nodes in the upper mediastinum. A lymph node between the SVC and innominate measures 8 mm short axis. No hilar lymphadenopathy is seen. No pericardial or pleural fluid is identified. No pulmonary infiltrates, nodules or masses are seen. The upper abdomen is unremarkable. The bony structures appear nonacute. IMPRESSION: Essentially unremarkable CT of the chest. No thoracic lymphadenopathy or evidence of pulmonary metastatic disease is seen. No parenchymal infiltrates are detected. Dictated by: Dictated on workstation # [id number]
== END ==
LOC: RT 08:37
PROVIDERS: ATTEND Nurse Practitioner Family
DX: J44.9 Chronic obstructive pulmonary disease, unspecified (principal); J30.9 Allergic rhinitis, unspecified; R06.00 Dyspnea, unspecified; K21.9 Gastro-esophageal reflux disease without esophagitis; F41.9 Anxiety disorder, unspecified; F17.200 Nicotine dependence, unspecified, uncomplicated
CPT/HCPCS: 36415; 71260; 82565; 84520; 94060; 94726; 94729